=== PATIENT | male | born 1970 | race Hispanic/Latino ===

== ENCOUNTER 2017-11-24 16:45 | Emergency (ER) | payer SELFPAY ==
[2017-11-24 20:09] LABS: Hemoglobin 11.9 gm/dl (11.8-15.2); Mean Corpuscular HGB Conc 34 % (32-34); Mean Corpuscular Hemoglobin 38 pg (28-32); Mean Corpuscular Volume 111 fl (84-94); Platelet Count 153 K/mm3 (140-440); Red Blood Count 3.17 M/mm3 (3.65-5.03)
[2017-11-24 20:15] LABS: BUN/Creatinine Ratio 9; Blood Urea Nitrogen 6 mg/dL (9-20); Calcium 8.4 mg/dL (8.4-10.2); Hemolysis Index 9
[2017-11-25] MEDS ORDERED: ANTIVERT PO ONE (11:19)
[2017-11-25] MEDS ORDERED: MOTRIN PO ONE (11:19)
[2017-11-25] MEDS ORDERED: NACL 0.9% 1000 ML 1,000 ML IV ONE (11:45)
--- NOTE | 2017-11-25 13:00 | Emergency Department Report ---
ED Dizziness HPI - General Chief Complaint: Dizziness Stated Complaint: FALL/DIZZINESS Time Seen by Provider: 11/25/17 11:05 Source: patient Mode of arrival: Ambulatory Limitations: No Limitations - History of Present Illness Initial Comments: Patient is a 47-year-old male who is presenting with dizziness for approximately 1 week. Patient states that he was recently diagnosed with hypertension and placed onto a blood pressure medicine since then he has been feeling dizzy spinning. Patient states that he stop taking one of the blood pressure medicines but the dizziness has persisted. Patient does have a difficult time walking and fell 2 days ago. Patient has a mild headache as 3 out of 10 in severity with neck discomfort. Patient denies syncope fever chills nausea vomiting diarrhea chest pain at this time. Patient moving all extremities is states he has a spinning sensation or whether she is sitting or standing Patient states he was seen at [facility] several days ago and had "an MRI" unable to determine what was done because the patient is not the best historian. Description: "room spinning", lightheadedness, off-balance, difficulty walking Severity: moderate Improves With: nothing Worsens With: nothing - Related Data Home Medications Medication Instructions Recorded Confirmed Last Taken ALPRAZolam [Xanax TAB] 0.5 mg PO BID PRN 09/23/16 09/23/16 Unknown Acetaminophen 650 mg PO Q6H PRN 09/23/16 09/23/16 Unknown Levothyroxine [Synthroid] 75 mcg PO QAM 09/23/16 09/23/16 Unknown PARoxetine [Paxil] 20 mg PO DAILY 09/23/16 09/23/16 Unknown amLODIPine [Norvasc] 10 mg PO DAILY 09/23/16 09/23/16 Unknown cloNIDine [Catapres] 0.2 mg PO BID 09/23/16 09/23/16 Unknown Previous Rx's Medication Instructions Recorded Last Taken Type Amoxicillin/K Clav Tab [Augmentin 1 tab PO Q12H #5 tablet 09/24/16 Unknown Rx 875MG TAB] Folic Acid 1 tab PO QDAY #30 tab 09/25/16 Unknown Rx Ibuprofen [Motrin] 800 mg PO Q8HR PRN #20 tablet 09/27/16 Unknown Rx Ibuprofen [Motrin] 600 mg PO Q8H PRN #20 tablet 11/25/17 Unknown Rx Meclizine [Antivert] 25 mg PO TID PRN #12 tablet 11/25/17 Unknown Rx Allergies Allergy/AdvReac Type Severity Reaction Status Date / Time No Known Allergies Allergy Verified 09/23/16 02:31 ED Review of Systems ROS: Stated complaint: FALL/DIZZINESS Other details as noted in HPI Comment: All other systems reviewed and negative ED Past Medical Hx - Past Medical History Hx Hypertension: Yes Hx Heart Attack/AMI: No Hx Congestive Heart Failure: No Hx Diabetes: No Hx Deep Vein Thrombosis: No Hx Pulmonary Embolism: No Hx Liver Disease: Yes Hx Asthma: No Hx COPD: No Hx Tuberculosis: No Hx HIV: No Additional medical history: THYROID. PNEUMONIA ,abscessed lung 10/2016//FX left ankle 11/2017 - Surgical History Hx Coronary Stent: No Hx Pacemaker: No Hx Internal Defibrillator: No Additional Surgical History: CYST REMOVED LEFT ARM. CHEST TUBE LEFT CHEST X 3 DAYS PT STATES - Social History Smoking Status: Current Every Day Smoker Substance Use Type: Alcohol - Medications Home Medications: Home Medications Medication Instructions Recorded Confirmed Last Taken Type ALPRAZolam [Xanax TAB] 0.5 mg PO BID PRN 09/23/16 09/23/16 Unknown History Acetaminophen 650 mg PO Q6H PRN 09/23/16 09/23/16 Unknown History Levothyroxine [Synthroid] 75 mcg PO QAM 09/23/16 09/23/16 Unknown History PARoxetine [Paxil] 20 mg PO DAILY 09/23/16 09/23/16 Unknown History amLODIPine [Norvasc] 10 mg PO DAILY 09/23/16 09/23/16 Unknown History cloNIDine [Catapres] 0.2 mg PO BID 09/23/16 09/23/16 Unknown History Amoxicillin/K Clav Tab [Augmentin 1 tab PO Q12H #5 tablet 09/24/16 Unknown Rx 875MG TAB] Folic Acid 1 tab PO QDAY #30 tab 09/25/16 Unknown Rx Ibuprofen [Motrin] 800 mg PO Q8HR PRN #20 tablet 09/27/16 Unknown Rx Ibuprofen [Motrin] 600 mg PO Q8H PRN #20 tablet 11/25/17 Unknown Rx Meclizine [Antivert] 25 mg PO TID PRN #12 tablet 11/25/17 Unknown Rx ED Physical Exam - General Limitations: No Limitations General appearance: alert, in no apparent distress - Head Head exam: Present: atraumatic, normocephalic - Eye Eye exam: Present: normal appearance - ENT ENT exam: Present: mucous membranes moist - Neck Neck exam: Present: other (generalized C-spine tenderness) - Respiratory Respiratory exam: Present: normal lung sounds bilaterally. Absent: respiratory distress - Cardiovascular Cardiovascular Exam: Present: regular rate, normal rhythm. Absent: systolic murmur, diastolic murmur, rubs, gallop - GI/Abdominal GI/Abdominal exam: Present: soft, normal bowel sounds - Rectal Rectal exam: Present: deferred - Extremities Exam Extremities exam: Present: normal inspection - Back Exam Back exam: Present: normal inspection - Neurological Exam Neurological exam: Present: alert, oriented X3 - Psychiatric Psychiatric exam: Present: normal affect, normal mood - Skin Skin exam: Present: warm, dry, intact, normal color. Absent: rash ED Course Vital Signs 11/24/17 11/24/17 11/25/17 17:08 21:52 08:41 Temperature 99.2 F 98.6 F 97.4 F L Pulse Rate 89 79 79 Respiratory 18 18 18 Rate Blood Pressure 110/82 139/89 147/91 Blood Pressure [Right] O2 Sat by Pulse 98 97 100 Oximetry 11/25/17 11:45 Temperature Pulse Rate 88 Respiratory Rate Blood Pressure Blood Pressure 82/41 [Right] O2 Sat by Pulse Oximetry ED Medical Decision Making - Lab Data Result diagrams: 11/24/17 18:50 11/24/17 18:50 - EKG Data -: EKG Interpreted by Me EKG shows normal: sinus rhythm, axis, QRS complexes, ST-T waves Rate: normal - EKG Data Interpretation: other (EKG has a rate of 84 only abnormality is intervals there' s a prolonged QT time interpretations 1720) - Medical Decision Making Patient is a 47-year-old male presenting with dizziness. Patient states he had a MRI several days ago but this was done at another facility is unable to get in touch with their facility at this time to find out if the patient indeed did have MRI and of what. Patient's paperwork from the hospital states that he has small ankle fracture. Patient is not the best historian. Because of the patient's fall and neck injury and dizziness my plan was to do a CT of the head and C-spine. Looking for potential C-spine fracture or evidence of CVA. Patient is refused this exam at this time discussed that the patient may have had a stroke could also have C-spine fractures that he'll follow-up as an outpatient is not want this exam patient states he does feel better after Antivert patient will be discharged AGAINST MEDICAL ADVICE at this time Critical care attestation.: If time is entered above; I have spent that time in minutes in the direct care of this critically ill patient, excluding procedure time. ED Disposition Clinical Impression: Dizziness, Cervical pain (neck), Closed head injury Disposition: - TO HOME OR SELFCARE Is pt being admited?: No Does the pt Need Aspirin: No Condition: Undetermined Prescriptions: Ibuprofen [Motrin] 600 mg PO Q8H PRN #20 tablet PRN Reason: Pain Meclizine [Antivert] 25 mg PO TID PRN #12 tablet PRN Reason: Vertigo Referrals: EMANUEL MCDONALD MD [Primary Care Provider] - 3-5 Days
[2017-11-25 15:27] VITALS: BP 167/100
[2017-11-25 16:10] LABS: BUN/Creatinine Ratio 9; Blood Urea Nitrogen 6 mg/dL (9-20); Calcium 8.6 mg/dL (8.4-10.2); Hemolysis Index 45
--- NOTE | 2017-11-25 16:15 | Cat Scan Report ---
FINAL REPORT PROCEDURE: CT HEAD/BRAIN WO CON TECHNIQUE: Computerized tomography of the head was performed without contrast material. DLP 1075.62 mGy-cm. HISTORY: Dizziness. COMPARISON: CT scan of the brain dated 09/23/2016. FINDINGS: Skull and scalp: Normal. Paranasal sinuses: Rightward septal deviation. Scattered ethmoid and left sphenoid sinusitis. Ventricles and subarachnoid spaces: Normal. Cerebrum: No evidence of hemorrhage, acute infarction or mass . Cerebellum and brainstem: No evidence of hemorrhage, acute infarction or mass. Prominent cisterna magna un changed. Vasculature: Mild atherosclerosis. Comments: None. IMPRESSION: No new CT evidence of acute intracranial pathology. Consider MRI of the brain for further characterization if there is continued clinical concern and if patient has no contraindication to MRI. Sinusitis.
== END 2017-11-25 13:09 | disposition left against medical advice (07) ==
LOC: ED 16:45
DX: S09.90XA Unspecified injury of head, initial encounter (principal); R42 Dizziness and giddiness; M54.2 Cervicalgia; I10 Essential (primary) hypertension; F17.200 Nicotine dependence, unspecified, uncomplicated
CPT/HCPCS: 36415; 70450; 80048; 84484; 85027; 93005; 93010; 99284

== ENCOUNTER 2017-11-25 15:08 | Emergency (ER) | payer SELFPAY ==
[2017-11-26] MEDS ORDERED: TYLENOL PO ONE (00:30)
[2017-11-26] MEDS ORDERED: TYLENOL ONE (00:37)
--- NOTE | 2017-11-26 01:27 | Emergency Department Report ---
<CHARI OVALLE T - Last Filed: 11/26/17 01:55> ED Psych HPI - General Chief Complaint: Weakness Stated Complaint: WEAK/DIZZY Time Seen by Provider: 11/26/17 01:05 Source: patient Mode of arrival: Ambulatory - History of Present Illness Initial Comments: 47 yo male who comes in today due to suicidal ideation. He states that he was seen and evaluated here earlier and was discharged. He presents to the ED complaining of suicidal ideation. He states that he has been contemplating suicide times the last three months. When asked how and why, he states that he would attempt it by cutting his wrist. In regards to why, he states that he has been depressed for the last three months, as he has lost everything he has and doesn't have anything. Also admits to a history of etoh abuse, and states that he can't quit drinking. He knows that he needs to quit, however he can't. MD Complaint: suicidal ideation -: month(s) (Three ) Associated Psychiatric Symptoms: suicidal ideation History of same: No Quality: intermittent Improves With: none Worsens With: achohol Context: recent alcohol abuse, other (history of etoh abuse ) Associated Symptoms: confusion Treatments Prior to Arrival: none If Self Harm: admits thoughts of, has plan (cut his wrist ) - Related Data Home Medications Medication Instructions Recorded Confirmed Last Taken ALPRAZolam [Xanax TAB] 0.5 mg PO BID PRN 09/23/16 09/23/16 Unknown Acetaminophen 650 mg PO Q6H PRN 09/23/16 09/23/16 Unknown Levothyroxine [Synthroid] 75 mcg PO QAM 09/23/16 09/23/16 Unknown PARoxetine [Paxil] 20 mg PO DAILY 09/23/16 09/23/16 Unknown amLODIPine [Norvasc] 10 mg PO DAILY 09/23/16 09/23/16 Unknown cloNIDine [Catapres] 0.2 mg PO BID 09/23/16 09/23/16 Unknown Previous Rx's Medication Instructions Recorded Last Taken Type Amoxicillin/K Clav Tab [Augmentin 1 tab PO Q12H #5 tablet 09/24/16 Unknown Rx 875MG TAB] Folic Acid 1 tab PO QDAY #30 tab 09/25/16 Unknown Rx Ibuprofen [Motrin] 800 mg PO Q8HR PRN #20 tablet 09/27/16 Unknown Rx Ibuprofen [Motrin] 600 mg PO Q8H PRN #20 tablet 11/25/17 Unknown Rx Meclizine [Antivert] 25 mg PO TID PRN #12 tablet 11/25/17 Unknown Rx Allergies Allergy/AdvReac Type Severity Reaction Status Date / Time No Known Allergies Allergy Verified 09/23/16 02:31 ED Review of Systems ROS: Stated complaint: WEAK/DIZZY Other details as noted in HPI Constitutional: weakness Eyes: denies: eye pain, eye discharge, vision change ENT: denies: ear pain, throat pain Respiratory: denies: cough, shortness of breath, wheezing Cardiovascular: denies: chest pain, palpitations Endocrine: no symptoms reported Gastrointestinal: denies: abdominal pain, nausea, diarrhea Genitourinary: denies: urgency, dysuria Musculoskeletal: joint swelling (left ankle ), arthralgia Skin: denies: rash, lesions Neurological: denies: headache, weakness, paresthesias Psychiatric: as per HPI, suicidal thoughts Hematological/Lymphatic: denies: easy bleeding, easy bruising ED Past Medical Hx - Past Medical History Hx Hypertension: Yes Hx Heart Attack/AMI: No Hx Congestive Heart Failure: No Hx Diabetes: No Hx Deep Vein Thrombosis: No Hx Pulmonary Embolism: No Hx Liver Disease: Yes Hx Asthma: No Hx COPD: No Hx Tuberculosis: No Hx HIV: No Additional medical history: THYROID. PNEUMONIA ,abscessed lung 10/2016//FX left ankle 11/2017 - Surgical History Hx Coronary Stent: No Hx Pacemaker: No Hx Internal Defibrillator: No Additional Surgical History: CYST REMOVED LEFT ARM. CHEST TUBE LEFT CHEST X 3 DAYS PT STATES - Social History Smoking Status: Current Every Day Smoker Substance Use Type: Alcohol - Medications Home Medications: Home Medications Medication Instructions Recorded Confirmed Last Taken Type ALPRAZolam [Xanax TAB] 0.5 mg PO BID PRN 09/23/16 09/23/16 Unknown History Acetaminophen 650 mg PO Q6H PRN 09/23/16 09/23/16 Unknown History Levothyroxine [Synthroid] 75 mcg PO QAM 09/23/16 09/23/16 Unknown History PARoxetine [Paxil] 20 mg PO DAILY 09/23/16 09/23/16 Unknown History amLODIPine [Norvasc] 10 mg PO DAILY 09/23/16 09/23/16 Unknown History cloNIDine [Catapres] 0.2 mg PO BID 09/23/16 09/23/16 Unknown History Amoxicillin/K Clav Tab [Augmentin 1 tab PO Q12H #5 tablet 09/24/16 Unknown Rx 875MG TAB] Folic Acid 1 tab PO QDAY #30 tab 09/25/16 Unknown Rx Ibuprofen [Motrin] 800 mg PO Q8HR PRN #20 tablet 09/27/16 Unknown Rx Ibuprofen [Motrin] 600 mg PO Q8H PRN #20 tablet 11/25/17 Unknown Rx Meclizine [Antivert] 25 mg PO TID PRN #12 tablet 11/25/17 Unknown Rx ED Physical Exam - General Limitations: No Limitations General appearance: anxious - Head Head exam: Present: atraumatic, normocephalic - Eye Eye exam: Present: normal appearance - ENT ENT exam: Present: mucous membranes moist - Neck Neck exam: Present: normal inspection - Respiratory Respiratory exam: Present: normal lung sounds bilaterally. Absent: respiratory distress - Cardiovascular Cardiovascular Exam: Present: regular rate, normal rhythm. Absent: systolic murmur, diastolic murmur, rubs, gallop - Extremities Exam Extremities exam: Present: normal inspection - Back Exam Back exam: Present: normal inspection - Neurological Exam Neurological exam: Present: alert, oriented X3 - Psychiatric Psychiatric exam: Present: suicidal ideation - Skin Skin exam: Present: warm, dry, intact, normal color. Absent: rash ED Course Vital Signs 11/25/17 11/26/17 11/26/17 15:18 01:38 02:15 Temperature 98.6 F 97.7 F Pulse Rate 85 85 Respiratory 16 16 Rate Blood Pressure 167/100 163/90 Blood Pressure 171/105 [Left] O2 Sat by Pulse 100 98 Oximetry 11/26/17 11/26/17 11/26/17 02:25 02:29 02:30 Temperature Pulse Rate 64 64 Respiratory Rate Blood Pressure 163/90 150/85 Blood Pressure 163/90 [Left] O2 Sat by Pulse Oximetry 11/26/17 02:45 Temperature Pulse Rate Respiratory Rate Blood Pressure 150/88 Blood Pressure [Left] O2 Sat by Pulse Oximetry - Reevaluation(s) Reevaluation #1: 11/26/17 01:30 Patient was seen and evaluated here earlier on today. Admits to suicidal ideation. History of alcohol abuse. Will consult mental health. Reevaluation #2: 11/26/17 01:[address] Guzman about the patient. Dr. Guzman to assume care of the patient. ED Medical Decision Making - Medical Decision Making Etoh abuse Suicidal ideation History of falls - Differential Diagnosis Etoh abuse, suicidal ideation, history of falls Critical care attestation.: If time is entered above; I have spent that time in minutes in the direct care of this critically ill patient, excluding procedure time. ED Disposition Clinical Impression: Suicidal ideation, Alcohol abuse Disposition: [id number]/TX-[id number] PS[facility] HOSP/PSY UNIT Condition: Stable Referrals: EMANUEL MCDONALD MD [Primary Care Provider] - 3-5 Days <LOGAN GUZMAN III - Last Filed: 11/26/17 05:12> ED Medical Decision Making - Lab Data Result diagrams: 11/26/17 01:39 11/26/17 01:39 - Medical Decision Making Patient medically cleared. Patient stable for transfer to psychiatric facility for 1013 ED Disposition Is pt being admited?: No Does the pt Need Aspirin: No Time of Disposition: 05:12
[2017-11-26] MEDS ORDERED: APRESOLINE IV ONE (01:53)
[2017-11-26 02:03] LABS: Hematocrit 35.5 % (35.5-45.6); Hemoglobin 12.2 gm/dl (11.8-15.2); Mean Corpuscular HGB Conc 34 % (32-34); Mean Corpuscular Hemoglobin 38 pg (28-32); Mean Corpuscular Volume 110 fl (84-94); Platelet Count 121 K/mm3 (140-440); Red Blood Count 3.24 M/mm3 (3.65-5.03); Red Cell Distribution Width 16.4 % (13.2-15.2)
[2017-11-26 02:16] LABS: Alanine Aminotransferase 24 units/L (7-56); Albumin 3.9 g/dL (3.9-5); BUN/Creatinine Ratio 12; Blood Urea Nitrogen 7 mg/dL (9-20); Calcium 8.6 mg/dL (8.4-10.2); Hemolysis Index 10
[2017-11-26 02:20] LABS: Creatine Kinase MB 6.6 ng/mL (0.0-4.0)
--- NOTE | 2017-11-26 02:22 | XRay Report ---
FINAL REPORT PROCEDURE: XR ANKLE 2V LT TECHNIQUE: LEFT ankle radiographs, AP and lateral views. HISTORY: LEFT ANKLE PAIN POST fall COMPARISON: No prior studies are available for comparison. FINDINGS: Fracture (s) and/or Dislocation(s): There is an oblique lucency through the distal fibula. This is consistent with a subacute fracture of the distal fibula. Callus formation in this region is noted. The remaining osseous structures appear intact. Alignment: Normal. Joint space(s): Mild narrowing of the joint spaces Soft tissues: Diffuse soft tissue swelling Bone mineralization: Normal. Foreign bodies: Normal. Calcaneal spurring: Small inferior spur IMPRESSION: Subacute healing fracture of the distal fibula. There is associated soft tissue swelling. Mild arthritis..
--- NOTE | 2017-11-26 02:23 | XRay Report ---
FINAL REPORT PROCEDURE: XR CHEST 1V AP TECHNIQUE: Chest radiograph anteroposterior view. CPT 81270 HISTORY: chest pain COMPARISON: No prior studies are available for comparison. FINDINGS: Heart: Normal. Mediastinum/Vessels: Normal. Lungs/Pleural space: Mild atelectasis in the left lower lung. No effusion or pneumothorax. Bony thorax: No acute osseous abnormality. Life support devices: None. IMPRESSION: Mild atelectasis left lower lung.
[2017-11-26] MEDS ORDERED: ATIVAN IV ONE (02:40)
[2017-11-26 02:43] LABS: Bilirubin,Urine NEG (Negative); Blood,Urine LG (Negative); Color,Urine Yellow (Yellow); Nitrite,Urine NEG (Negative)
[2017-11-26 02:50] LABS: Amphetamine Screen,Urine PRESUMPTIVE NEGATIVE; Benzodiazepines Screen,Urine PRESUMPTIVE NEGATIVE; Cannabinoid Screen,Urine PRESUMPTIVE NEGATIVE; Cocaine Screen,Urine PRESUMPTIVE NEGATIVE; Methadone Screen,Urine PRESUMPTIVE NEGATIVE; Opiate Screen,Urine PRESUMPTIVE NEGATIVE
[2017-11-26] MEDS ORDERED: ATIVAN IV PRN ×2 (04:15)
--- NOTE | 2017-11-26 14:38 | Consultation ---
History of Present Illness - Reason for Consult Consult date: 11/26/17 Reason for consult: Mental Health Evaluation Requesting physician: CHARI OVALLE - Chief Complaint Chief complaint: "I have no idea about my life" - History of Present Psychiatric Illness 47 y.o. white male presenting to [facility] for SI's and ETOH abuse. Today the patient is calm and cooperative during the assessment. He stated that he has no relationship with his siblings. He stated that he only talks with his mother occasionally. He stated that he been drinking alcohol (etoh) for the past 20 plus years. He stated that he drink now to lower his depression about his life. He stated that his life is "horrible." He stated that he do not want to live and would cut his wrists if he had the chance. He denies a previous suicide attempt when asked. He stated feeling sad and hopeless the past couple months because of his family issues. He stated that he would like some help (rehab services for his alcoholism) once discharged. He denies HI's and AVH's. He admitted to a poor appetite and erratic sleep. He denies recreational drug use. Medications and Allergies Allergies Allergy/AdvReac Type Severity Reaction Status Date / Time No Known Allergies Allergy Verified 09/23/16 02:31 Home Medications Medication Instructions Recorded Confirmed Last Taken Type ALPRAZolam [Xanax TAB] 0.5 mg PO BID PRN 09/23/16 09/23/16 Unknown History Acetaminophen 650 mg PO Q6H PRN 09/23/16 09/23/16 Unknown History Levothyroxine [Synthroid] 75 mcg PO QAM 09/23/16 09/23/16 Unknown History PARoxetine [Paxil] 20 mg PO DAILY 09/23/16 09/23/16 Unknown History amLODIPine [Norvasc] 10 mg PO DAILY 09/23/16 09/23/16 Unknown History cloNIDine [Catapres] 0.2 mg PO BID 09/23/16 09/23/16 Unknown History Amoxicillin/K Clav Tab [Augmentin 1 tab PO Q12H #5 tablet 09/24/16 Unknown Rx 875MG TAB] Folic Acid 1 tab PO QDAY #30 tab 09/25/16 Unknown Rx Ibuprofen [Motrin] 800 mg PO Q8HR PRN #20 tablet 09/27/16 Unknown Rx Ibuprofen [Motrin] 600 mg PO Q8H PRN #20 tablet 11/25/17 Unknown Rx Meclizine [Antivert] 25 mg PO TID PRN #12 tablet 11/25/17 Unknown Rx Active Meds: Active Medications Lorazepam (Ativan) 2 mg IV Q1HR PRN PRN Reason: CIWA-Ar 8-15 Lorazepam (Ativan) 4 mg IV Q1HR PRN PRN Reason: CIWA-Ar 16-25 Mental Status Exam - Vital signs Last Vital Signs Temp 97.7 F 11/26/17 01:38 Pulse 64 11/26/17 02:29 Resp 16 11/26/17 01:38 BP 147/80 11/26/17 09:00 Pulse Ox 98 11/26/17 09:00 - Exam Narrative exam: MSE: Appearance: calm, cooperative Behavior: regular eye contact Speech: regular rate and tone Mood: "depressed" withdrawn Affect: congruent to mood Thought Process: circumstantial Thought Content: denies HI's and AVH's Motor Activity: ambulatory Cognition: A/O x 3 Insight: variable Judgment: variable Results Result Diagrams: 11/26/17 01:39 11/26/17 01:39 Abnormal lab results 11/26/17 11/26/17 11/26/17 Range/Units 01:39 01:39 01:39 RBC 3.24 L (3.65-5.03) M/mm3 MCV 110 H (84-94) fl MCH 38 H (28-32) pg RDW 16.4 H (13.2-15.2) % Plt Count 121 L (140-440) K/mm3 BUN 7 L (9-20) mg/dL Creatinine 0.6 L (0.8-1.5) mg/dL AST 61 H (5-40) units/L Total Creatine Kinase 230 H (55-170) units/L CK-MB (CK-2) 6.6 H (0.0-4.0) ng/mL All other labs normal. Assessment and Plan Assessment and plan: Impression: MDD, Severe Type. Alcohol Use DO. Today the patient is calm and cooperative during the assessment. Patient endorses SI's. Mild to Moderate tremors noted (etoh). DDx: R/O Bipolar DO Recommendation/Plan: Continue 1013 with placement to inpatient psy services. Continue CIWA. Start Remeron 15 mg PO HS for depression/sleep consolidation. Remeron may stimulate patient's appetite. Discussed possible suicidality/ medication induced warren reference Remeron. Discussed the importance to abstain from alcohol consumption (etoh).
[2017-11-26 17:27] VITALS: BP 135/75
[2017-11-26] MEDS ORDERED: REMERON PO SCH (22:00)
== END 2017-11-26 21:30 ==
LOC: ED 15:08
DX: R45.851 Suicidal ideations (principal); F17.200 Nicotine dependence, unspecified, uncomplicated; I10 Essential (primary) hypertension
CPT/HCPCS: 36415; 71045; 73600; 80053; 80307; 81001; 82550; 82553; 84484; 85027; 96374; 96376; 99285; G0480; J0360; J2060; 80320

== ENCOUNTER 2019-06-19 14:35 | Inpatient (IN) | payer OTHER ==
--- NOTE | 2019-06-19 15:29 | Emergency Department Report ---
ED Shortness of Breath HPI - General Chief Complaint: Dizziness Stated Complaint: VERTIGO Time Seen by Provider: 06/19/19 15:20 Source: patient, EMS Mode of arrival: Ambulatory Limitations: No Limitations - History of Present Illness MD Complaint: shortness of breath, chest pain -: Sudden Time: 12:00 Severity: moderate Pain Scale: 5 Consistency: now resolved Improves With: oxygen Worsens With: nothing Associated Symptoms: chest pain Treatments Prior to Arrival: oxygen - Related Data Home Oxygen Therapy: No Home Medications Medication Instructions Recorded Confirmed Last Taken ALPRAZolam [Xanax TAB] 0.5 mg PO BID PRN 09/23/16 09/23/16 Unknown Acetaminophen 650 mg PO Q6H PRN 09/23/16 09/23/16 Unknown Levothyroxine [Synthroid] 75 mcg PO QAM 09/23/16 09/23/16 Unknown PARoxetine [Paxil] 20 mg PO DAILY 09/23/16 09/23/16 Unknown amLODIPine [Norvasc] 10 mg PO DAILY 09/23/16 09/23/16 Unknown cloNIDine [Catapres] 0.2 mg PO BID 09/23/16 09/23/16 Unknown Previous Rx's Medication Instructions Recorded Last Taken Type Amoxicillin/K Clav Tab [Augmentin 1 tab PO Q12H #5 tablet 09/24/16 Unknown Rx 875MG TAB] Folic Acid 1 tab PO QDAY #30 tab 09/25/16 Unknown Rx Ibuprofen [Motrin] 800 mg PO Q8HR PRN #20 tablet 09/27/16 Unknown Rx Ibuprofen [Motrin] 600 mg PO Q8H PRN #20 tablet 11/25/17 Unknown Rx Meclizine [Antivert] 25 mg PO TID PRN #12 tablet 11/25/17 Unknown Rx Allergies Allergy/AdvReac Type Severity Reaction Status Date / Time No Known Allergies Allergy Verified 09/23/16 02:31 ED Review of Systems ROS: Stated complaint: VERTIGO Other details as noted in HPI Comment: All other systems reviewed and negative Constitutional: denies: chills, fever Eyes: denies: eye pain, eye discharge, vision change ENT: denies: ear pain, throat pain Respiratory: shortness of breath. denies: cough, wheezing Cardiovascular: chest pain. denies: palpitations Endocrine: no symptoms reported Gastrointestinal: denies: abdominal pain, nausea, diarrhea Genitourinary: denies: urgency, dysuria Musculoskeletal: other (Bilateral Leg swelling.). denies: back pain, joint swelling, arthralgia Skin: denies: rash, lesions Neurological: denies: headache, weakness, paresthesias Psychiatric: depression, suicidal thoughts. denies: anxiety, homicidal thoughts Hematological/Lymphatic: denies: easy bleeding, easy bruising ED Past Medical Hx - Past Medical History Previous Medical History?: Yes Hx Hypertension: Yes Hx Heart Attack/AMI: No Hx Congestive Heart Failure: No Hx Diabetes: No Hx Deep Vein Thrombosis: No Hx Pulmonary Embolism: No Hx Liver Disease: Yes Hx Asthma: No Hx COPD: No Hx Tuberculosis: No Hx HIV: No Additional medical history: THYROID. 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 CHEST TUBE LEFT CHEST X 3 DAYS PT STATES - Social History Smoking Status: Current Some Day Smoker Substance Use Type: Alcohol - Medications Home Medications: Home Medications Medication Instructions Recorded Confirmed Last Taken Type ALPRAZolam [Xanax TAB] 0.5 mg PO BID PRN 09/23/16 09/23/16 Unknown History Acetaminophen 650 mg PO Q6H PRN 09/23/16 09/23/16 Unknown History Levothyroxine [Synthroid] 75 mcg PO QAM 09/23/16 09/23/16 Unknown History PARoxetine [Paxil] 20 mg PO DAILY 09/23/16 09/23/16 Unknown History amLODIPine [Norvasc] 10 mg PO DAILY 09/23/16 09/23/16 Unknown History cloNIDine [Catapres] 0.2 mg PO BID 09/23/16 09/23/16 Unknown History Amoxicillin/K Clav Tab [Augmentin 1 tab PO Q12H #5 tablet 09/24/16 Unknown Rx 875MG TAB] Folic Acid 1 tab PO QDAY #30 tab 09/25/16 Unknown Rx Ibuprofen [Motrin] 800 mg PO Q8HR PRN #20 tablet 09/27/16 Unknown Rx Ibuprofen [Motrin] 600 mg PO Q8H PRN #20 tablet 11/25/17 Unknown Rx Meclizine [Antivert] 25 mg PO TID PRN #12 tablet 11/25/17 Unknown Rx ED Physical Exam - General Limitations: No Limitations General appearance: alert, in no apparent distress, lethargic - Head Head exam: Present: atraumatic, normocephalic - Eye Eye exam: Present: normal appearance, PERRL, EOMI Pupils: Present: normal accommodation - ENT ENT exam: Present: normal exam, mucous membranes moist - Neck Neck exam: Present: normal inspection, full ROM. Absent: tenderness, meningismus - Respiratory Respiratory exam: Present: normal lung sounds bilaterally. Absent: respiratory distress, wheezes, rales - Cardiovascular Cardiovascular Exam: Present: regular rate, normal rhythm. Absent: systolic murmur, diastolic murmur, rubs, gallop - GI/Abdominal GI/Abdominal exam: Present: soft, distended, normal bowel sounds. Absent: tenderness, guarding, rebound - Extremities Exam Extremities exam: Present: normal inspection, normal capillary refill, pedal edema, calf tenderness - Back Exam Back exam: Present: normal inspection, full ROM. Absent: tenderness - Neurological Exam Neurological exam: Present: alert, oriented X3, CN II-XII intact - Psychiatric Psychiatric exam: Present: depressed, flat affect, suicidal ideation. Absent: homicidal ideation - Skin Skin exam: Present: warm, dry, intact, normal color, erythema (RLE). Absent: rash ED Course Vital Signs 06/19/19 06/19/19 06/19/19 14:47 14:56 15:00 Temperature 98.1 F Pulse Rate 81 86 Respiratory 18 Rate Blood Pressure 133/67 133/67 O2 Sat by Pulse 94 91 Oximetry 06/19/19 06/19/19 06/19/19 15:30 16:00 16:30 Temperature Pulse Rate 73 Respiratory Rate Blood Pressure 149/86 140/84 148/77 O2 Sat by Pulse 100 100 100 Oximetry 06/19/19 17:00 Temperature Pulse Rate Respiratory Rate Blood Pressure 136/76 O2 Sat by Pulse 87 Oximetry - Consultations Consultation #1: 06/19/19 20:21 Patient will be admitted to the hospital by Ms. Grier the midlevel provider for the hospitalist Dr Mari Singer. ED Medical Decision Making - Lab Data Result diagrams: 06/19/19 15:50 06/19/19 15:50 Lab Results 06/19/19 06/19/19 06/19/19 Range/Units 15:50 15:50 15:50 WBC 9.0 (4.5-11.0) K/mm3 RBC 3.16 L (3.65-5.03) M/mm3 Hgb 11.2 L (11.8-15.2) gm/dl Hct 32.9 L (35.5-45.6) % MCV 104 H (84-94) fl MCH 35 H (28-32) pg MCHC 34 (32-34) % RDW 17.5 H (13.2-15.2) % Plt Count 386 (140-440) K/mm3 Lymph % (Auto) 18.0 (13.4-35.0) % [place] % (Auto) 7.2 (0.0-7.3) % Eos % (Auto) 0.3 (0.0-4.3) % Baso % (Auto) 0.7 (0.0-1.8) % Lymph # 1.6 (1.2-5.4) K/mm3 [place] # 0.7 (0.0-0.8) K/mm3 Eos # 0.0 (0.0-0.4) K/mm3 Baso # 0.1 (0.0-0.1) K/mm3 Seg Neutrophils % 73.8 H (40.0-70.0) % Seg Neutrophils # 6.7 (1.8-7.7) K/mm3 PT 14.2 (12.2-14.9) Sec. INR 1.13 (0.87-1.13) Sodium 135 L (137-145) mmol/L Potassium 4.1 (3.6-5.0) mmol/L Chloride 95.1 L (98-107) mmol/L Carbon Dioxide 25 (22-30) mmol/L Anion Gap 19 mmol/L BUN 15 (9-20) mg/dL Creatinine 1.3 (0.8-1.5) mg/dL Estimated GFR 58 ml/min BUN/Creatinine Ratio 12 % Glucose 109 H (75-100) mg/dL Calcium 9.1 (8.4-10.2) mg/dL Total Bilirubin 0.50 (0.1-1.2) mg/dL AST 27 (5-40) units/L ALT 22 (7-56) units/L Alkaline Phosphatase 116 (35-129) units/L Total Creatine Kinase (55-170) units/L Troponin T (0.00-0.029) ng/mL NT-Pro-B Natriuret Pep 342.2 (0-900) pg/mL Total Protein 9.0 H (6.3-8.2) g/dL Albumin 3.5 L (3.9-5) g/dL Albumin/Globulin Ratio 0.6 % Triglycerides (2-149) mg/dL Cholesterol (50-199) mg/dL LDL Cholesterol Direct (50-130) mg/dL HDL Cholesterol (40-59) mg/dL Cholesterol/HDL Ratio % TSH (0.270-4.200) mlU/mL Salicylates (2.8-20.0) mg/dL Acetaminophen (10.0-30.0) ug/mL Plasma/Serum Alcohol (0-0.07) % 06/19/19 06/19/19 06/19/19 Range/Units 15:50 15:50 15:50 WBC (4.5-11.0) K/mm3 RBC (3.65-5.03) M/mm3 Hgb (11.8-15.2) gm/dl Hct (35.5-45.6) % MCV (84-94) fl MCH (28-32) pg MCHC (32-34) % RDW (13.2-15.2) % Plt Count (140-440) K/mm3 Lymph % (Auto) (13.4-35.0) % [place] % (Auto) (0.0-7.3) % Eos % (Auto) (0.0-4.3) % Baso % (Auto) (0.0-1.8) % Lymph # (1.2-5.4) K/mm3 [place] # (0.0-0.8) K/mm3 Eos # (0.0-0.4) K/mm3 Baso # (0.0-0.1) K/mm3 Seg Neutrophils % (40.0-70.0) % Seg Neutrophils # (1.8-7.7) K/mm3 PT (12.2-14.9) Sec. INR (0.87-1.13) Sodium (137-145) mmol/L Potassium (3.6-5.0) mmol/L Chloride (98-107) mmol/L Carbon Dioxide (22-30) mmol/L Anion Gap mmol/L BUN (9-20) mg/dL Creatinine (0.8-1.5) mg/dL Estimated GFR ml/min BUN/Creatinine Ratio % Glucose (75-100) mg/dL Calcium (8.4-10.2) mg/dL Total Bilirubin (0.1-1.2) mg/dL AST (5-40) units/L ALT (7-56) units/L Alkaline Phosphatase (35-129) units/L Total Creatine Kinase 175 H (55-170) units/L Troponin T 0.065 H (0.00-0.029) ng/mL NT-Pro-B Natriuret Pep (0-900) pg/mL Total Protein (6.3-8.2) g/dL Albumin (3.9-5) g/dL Albumin/Globulin Ratio % Triglycerides 119 (2-149) mg/dL Cholesterol 118 (50-199) mg/dL LDL Cholesterol Direct 85 (50-130) mg/dL HDL Cholesterol 28 L (40-59) mg/dL Cholesterol/HDL Ratio 4.21 % TSH 13.750 H (0.270-4.200) mlU/mL Salicylates (2.8-20.0) mg/dL Acetaminophen (10.0-30.0) ug/mL Plasma/Serum Alcohol < 0.01 (0-0.07) % 06/19/19 06/19/19 Range/Units 15:50 15:50 WBC (4.5-11.0) K/mm3 RBC (3.65-5.03) M/mm3 Hgb (11.8-15.2) gm/dl Hct (35.5-45.6) % MCV (84-94) fl MCH (28-32) pg MCHC (32-34) % RDW (13.2-15.2) % Plt Count (140-440) K/mm3 Lymph % (Auto) (13.4-35.0) % [place] % (Auto) (0.0-7.3) % Eos % (Auto) (0.0-4.3) % Baso % (Auto) (0.0-1.8) % Lymph # (1.2-5.4) K/mm3 [place] # (0.0-0.8) K/mm3 Eos # (0.0-0.4) K/mm3 Baso # (0.0-0.1) K/mm3 Seg Neutrophils % (40.0-70.0) % Seg Neutrophils # (1.8-7.7) K/mm3 PT (12.2-14.9) Sec. INR (0.87-1.13) Sodium (137-145) mmol/L Potassium (3.6-5.0) mmol/L Chloride (98-107) mmol/L Carbon Dioxide (22-30) mmol/L Anion Gap mmol/L BUN (9-20) mg/dL Creatinine (0.8-1.5) mg/dL Estimated GFR ml/min BUN/Creatinine Ratio % Glucose (75-100) mg/dL Calcium (8.4-10.2) mg/dL Total Bilirubin (0.1-1.2) mg/dL AST (5-40) units/L ALT (7-56) units/L Alkaline Phosphatase (35-129) units/L Total Creatine Kinase (55-170) units/L Troponin T (0.00-0.029) ng/mL NT-Pro-B Natriuret Pep (0-900) pg/mL Total Protein (6.3-8.2) g/dL Albumin (3.9-5) g/dL Albumin/Globulin Ratio % Triglycerides (2-149) mg/dL Cholesterol (50-199) mg/dL LDL Cholesterol Direct (50-130) mg/dL HDL Cholesterol (40-59) mg/dL Cholesterol/HDL Ratio % TSH (0.270-4.200) mlU/mL Salicylates < 0.3 L (2.8-20.0) mg/dL Acetaminophen < 5.0 L (10.0-30.0) ug/mL Plasma/Serum Alcohol (0-0.07) % - EKG Data -: EKG Interpreted by Me EKG shows normal: sinus rhythm Rate: normal - EKG Data When compared to previous EKG there are: previous EKG unavailable Interpretation: nonspecific ST-T wave pia 06/19/19 15:33 No STEMI. - Radiology Data Radiology results: report reviewed CXR showed basal atelectasis. Doppler Ultrasound of bilateral lower extremity was negative to DVT. CT angio chest with contrast was negative for PE. - Medical Decision Making Elevated Troponin. Patient will be admitted to the hospitalist team for further evaluation and management. Critical care attestation.: If time is entered above; I have spent that time in minutes in the direct care of this critically ill patient, excluding procedure time. ED Disposition Clinical Impression: Elevated troponin level, Pedal edema, Suicide ideation, Prolonged QT interval Chest pain Qualifiers: Chest pain type: unspecified Qualified Code(s): R07.9 - Chest pain, unspecified Disposition: 09 OP ADMIT IP TO THIS HOSP Is pt being admited?: Yes Does the pt Need Aspirin: Yes Condition: Stable Instructions: Chest Pain (ED) Referrals: MINERVA VAUGHN MD [Primary Care Provider] - 3-5 Days Time of Disposition: 20:28
--- NOTE | 2019-06-19 16:05 | XRay Report ---
CHEST 1 VIEW INDICATION: MAIN: SOB AND DIZZYNESS TODAY. COMPARISON: 11/26/2017. FINDINGS: Support devices: None. Heart: Normal. Lungs/Pleura: Mild bibasilar opacities may be atelectatic. Trace effusions versus scarring at the cos tophrenic angles. No pneumothorax. IMPRESSION: 1. Mild presumed atelectatic changes in the bases. Signer Name: Dimitris Markham MD Signed: 06/19/2019 4:00 PM Workstation Name: [id number]
[2019-06-19 16:07] LABS: Basophils # (Auto) 0.1 K/mm3 (0.0-0.1); Basophils % (Auto) 0.7 % (0.0-1.8); Eosinophils % (Auto) 0.3 % (0.0-4.3); Hematocrit 32.9 % (35.5-45.6); Hemoglobin 11.2 gm/dl (11.8-15.2); Lymphocytes # (Auto) 1.6 K/mm3 (1.2-5.4); Mean Corpuscular HGB Conc 34 % (32-34); Mean Corpuscular Volume 104 fl (84-94); Monocytes # (Auto) 0.7 K/mm3 (0.0-0.8); Monocytes % (Auto) 7.2 % (0.0-7.3); Platelet Count 386 K/mm3 (140-440); Red Blood Count 3.16 M/mm3 (3.65-5.03); Red Cell Distribution Width 17.5 % (13.2-15.2)
[2019-06-19 16:33] LABS: Albumin 3.5 g/dL (3.9-5); Calcium 9.1 mg/dL (8.4-10.2)
[2019-06-19 16:42] LABS: INR 1.13 (0.87-1.13)
[2019-06-19] MEDS ORDERED: BABY ASPIRIN PO ONE (16:50)
[2019-06-19 16:57] LABS: Chol/HDL Ratio 4.21 %
--- NOTE | 2019-06-19 17:49 | Vascular Lab Report ---
DUPLEX DOPPLER LOWER EXTREMITY VEINS, BILATERAL INDICATION: Bilateral leg swelling.. TECHNIQUE: Duplex doppler imaging was performed through the veins of both lower extremities using venous naresh nicole and other maneuvers. COMPARISON: None available. FINDINGS: Right Common Femoral vein: Negative. Right Superficial Femoral vein: Negative. Right Popliteal vein: Negative. Right Calf veins: Negative. Left Common Femoral vein: Negative. Left Superficial Femoral vein: Negative. Left Popliteal vein: Negative. Left Calf veins: Negative. Additional findings: None. IMPRESSION: 1. No sonographic evidence for DVT in either lower extremity. Signer Name: Dimitris Markham MD Signed: 06/19/2019 5:45 PM Workstation Name: [id number]
[2019-06-19 17:51] LABS: Partial Thromboplastin Time 27.3 Sec. (24.2-36.6)
--- NOTE | 2019-06-19 17:55 | Cat Scan Report ---
CT BRAIN: 06/19/2019 INDICATION / CLINICAL INFORMATION: Headache. COMPARISON: 11/25/2017 FINDINGS: BRAIN/INTRACRANIAL STRUCTURES: Unenhanced CT images of the brain demonstrate no evidence of acute int racranial abnormality. Ventricles and sulci are slightly prominent in size for a patient of this age, consistent with some d iffuse cerebral atrophy. There is no evidence of acute ischemic injury, hemorrhage, or mass. There are no abnormal extra-axial fluid collections. There has been no change when compared to the prior exam. EXTRACRANIAL STRUCTURES: Unremarkable. IMPRESSION: No acute abnormality. All CT scans at this location are performed using dose reduction to ALARA by means of automated expos ure control. Signer Name: Gabo Scott MD Signed: 06/19/2019 5:51 PM Workstation Name: [id number]
[2019-06-19 18:24] LABS: Bacteria,Urine 1+ /HPF (Negative); Bilirubin,Urine NEG (Negative); Blood,Urine LG (Negative); Color,Urine Yellow (Yellow); Urobilinogen,Urine < 2.0 mg/dL (<2.0)
[2019-06-19 18:32] LABS: Amphetamine Screen,Urine PRESUMPTIVE NEGATIVE; Cannabinoid Screen,Urine PRESUMPTIVE NEGATIVE; Cocaine Screen,Urine PRESUMPTIVE NEGATIVE; Methadone Screen,Urine PRESUMPTIVE NEGATIVE; Opiate Screen,Urine PRESUMPTIVE NEGATIVE
[2019-06-19 18:48] LABS: Benzodiazepines Screen,Urine PRESUMPTIVE POSITIVE
--- NOTE | 2019-06-19 19:49 | Cat Scan Report ---
CTA CHEST WITH IV CONTRAST INDICATION: SOB, CHEST PAIN, Elevated D-Dimer.. TECHNIQUE: Axial CT images were obtained through the chest after injection of IV contrast. 3 plane MIP reconstru ctions were produced. All CT scans at this location are performed using CT dose reduction for ALARA b y means of automated exposure control. COMPARISON: CT chest 09/23/2016. FINDINGS: Pulmonary Arteries: No pulmonary emboli. Thoracic Aorta: No acute abnormality. Heart: Normal. Coronary Arteries: No significant calcification. Lungs: No acute air space or interstitial disease. There is scarring/round atelectasis within the lef t lower lung along the fissure and in the posterior lung base. There is also mild scarring versus ate lectasis in the dependent right lung base. Pleura: No pleural effusion. No pneumothorax. Lymph Nodes: No significant adenopathy. Additional Findings: None. Upper Abdomen: No acute findings. Skeletal Structures: No significant osseous abnormality. IMPRESSION: 1. No CT evidence for pulmonary embolism. 2. No acute findings. Signer Name: Dimitris Markham MD Signed: 06/19/2019 7:44 PM Workstation Name: [id number]
[2019-06-19] MEDS ORDERED: SODIUM CHLORIDE FLUSH SYRINGE 10 ML IV PRN ×2 (20:27)
[2019-06-19] MEDS ORDERED: MILK OF MAGNESIA PO PRN (20:27)
[2019-06-19] MEDS ORDERED: TYLENOL PO PRN (20:27)
[2019-06-19] MEDS ORDERED: AMBIEN PO PRN (20:27)
[2019-06-19] MEDS ORDERED: ZOFRAN IV PRN (20:27)
[2019-06-19] MEDS ORDERED: ASPIRIN PO ONE (20:54)
--- NOTE | 2019-06-19 20:57 | History and Physical Report ---
<LESLEY MARIA - Last Filed: 06/19/19 22:55> History of Present Illness Date of examination: 06/19/19 Date of admission: 06/19/2019 Chief complaint: chest pain, SOB History of present illness: Patient is 48-year-old with PMHx of depression and EtOH use disorder who presents to the ER with complaints of chest pain and SOB. Patient states that the chest pain started today located in the left substernal area associated with shortness of breath, palpitation and anxiety, he denied any radiation. Patient states that he suffers from severe anxiety and he usually drink alcohol to relieve his anxiety, last night he drinks half gallop of vodka. Patient states that his left leg had been very swollen, he had a red rash in his legs that he didn't know how he gets it, he had severe anxiety and difficulty breathing daily, he decided to come to the ER for evaluation. Patient reports depression and suicidal ideation, he states that he had been thinking about killing himself, 2 days ago he had his 22 pistol in his head wanting to kill himself, luckily he decided against it. Pt reports severe despair and hopelessness, he states that he loss elizabet in his future, he express fear of hunger, loss of income or resources, long-term and fear of . Pt c/o SOB, palpitation, he denies diaphoresis, denies n/v, denies headache, denies dizziness, denies fever or chills. He had an EKG in the ER that showed SR, his Troponin was elevated, hi s chest x-ray showed mild atelectasis changes at the bases, psych and cardiology were consulted and he is admitted for further evaluation and treatment. Past History Past Medical History: other (Depression) Past Surgical History: No surgical history Social history: Lives alone Family history: no significant family history Medications and Allergies Allergies Allergy/AdvReac Type Severity Reaction Status Date / Time No Known Allergies Allergy Verified 09/23/16 02:31 Home Medications Medication Instructions Recorded Confirmed Last Taken Type ALPRAZolam [Xanax TAB] 0.5 mg PO BID PRN 09/23/16 06/21/19 Unknown History Acetaminophen 650 mg PO Q6H PRN 09/23/16 06/21/19 Unknown History Levothyroxine [Synthroid] 75 mcg PO QAM 09/23/16 06/21/19 Unknown History PARoxetine [Paxil] 20 mg PO DAILY 09/23/16 06/21/19 Unknown History amLODIPine [Norvasc] 10 mg PO DAILY 09/23/16 06/21/19 Unknown History cloNIDine [Catapres] 0.2 mg PO BID 09/23/16 06/21/19 Unknown History Amoxicillin/K Clav Tab [Augmentin 1 tab PO Q12H #5 tablet 09/24/16 06/21/19 Unknown Rx 875MG TAB] Folic Acid 1 tab PO QDAY #30 tab 09/25/16 06/21/19 Unknown Rx Ibuprofen [Motrin] 800 mg PO Q8HR PRN #20 tablet 09/27/16 06/21/19 Unknown Rx Ibuprofen [Motrin] 600 mg PO Q8H PRN #20 tablet 11/25/17 06/21/19 Unknown Rx Meclizine [Antivert] 25 mg PO TID PRN #12 tablet 11/25/17 06/21/19 Unknown Rx Active Meds: Active Medications Acetaminophen (Tylenol) 650 mg PO Q4H PRN PRN Reason: Pain MILD(1-3)/Fever >100.5/PRAJAPATI Aspirin (Ecotrin) 325 mg PO QDAY JESSICA Atorvastatin Calcium (Lipitor) 40 mg PO QHS JESSICA Famotidine (Pepcid) 20 mg IV BID JESSICA Magnesium Hydroxide (Milk Of Magnesia) 30 ml PO Q4H PRN PRN Reason: Constipation Ondansetron HCl (Zofran) 4 mg IV Q8H PRN PRN Reason: Nausea And Vomiting Oxycodone/Acetaminophen (Percocet 5/325) 1 tab PO Q6H PRN PRN Reason: Pain, Moderate (4-6) Sodium Chloride (Sodium Chloride Flush Syringe 10 Ml) 10 ml IV BID JESSICA Sodium Chloride (Sodium Chloride Flush Syringe 10 Ml) 10 ml IV PRN PRN PRN Reason: LINE FLUSH Sodium Chloride (Sodium Chloride Flush Syringe 10 Ml) 10 ml IV PRN PRN PRN Reason: LINE FLUSH Zolpidem Tartrate (Ambien) 5 mg PO QHS PRN PRN Reason: Insomnia Review of Systems Cardiovascular: chest pain Respiratory: shortness of breath Musculoskeletal: other (lower extremities edema) Integumentary: other (rash, redness) Exam - Constitutional Vitals: Temp Pulse Resp BP Pulse Ox 98.1 F 73 18 136/76 87 06/19/19 14:56 06/19/19 16:00 06/19/19 14:56 06/19/19 17:00 06/19/19 17:00 General appearance: Present: no acute distress - EENT Eyes: Present: EOM intact ENT: hearing intact - Neck Neck: Present: normal ROM - Respiratory Respiratory effort: normal Respiratory: bilateral: CTA, diminished - Cardiovascular Rhythm: regular - Extremities Extremities: no ischemia Extremity abnormal: edema (3+ bilateral LEs) Peripheral Pulses: within normal limits - Abdominal General gastrointestinal: Present: soft, non-tender, non-distended Male genitourinary: Present: deferred - Rectal Rectal Exam: deferred - Integumentary Integumentary: Present: warm, dry - Musculoskeletal Musculoskeletal: strength equal bilaterally - Psychiatric Psychiatric: cooperative, depressed - Neurologic Neurologic: moves all extremities Results - Labs CBC & Chem 7: 06/19/19 21:54 06/19/19 21:00 Labs: Laboratory Last Values WBC 9.0 K/mm3 (4.5-11.0) 06/19/19 15:50 RBC 3.16 M/mm3 (3.65-5.03) L 06/19/19 15:50 Hgb 11.2 gm/dl (11.8-15.2) L 06/19/19 15:50 Hct 32.9 % (35.5-45.6) L 06/19/19 15:50 MCV 104 fl (84-94) H 06/19/19 15:50 MCH 35 pg (28-32) H 06/19/19 15:50 MCHC 34 % (32-34) 06/19/19 15:50 RDW 17.5 % (13.2-15.2) H 06/19/19 15:50 Plt Count 386 K/mm3 (140-440) 06/19/19 15:50 Lymph % (Auto) 18.0 % (13.4-35.0) 06/19/19 15:50 [place] % (Auto) 7.2 % (0.0-7.3) 06/19/19 15:50 Eos % (Auto) 0.3 % (0.0-4.3) 06/19/19 15:50 Baso % (Auto) 0.7 % (0.0-1.8) 06/19/19 15:50 Lymph # 1.6 K/mm3 (1.2-5.4) 06/19/19 15:50 [place] # 0.7 K/mm3 (0.0-0.8) 06/19/19 15:50 Eos # 0.0 K/mm3 (0.0-0.4) 06/19/19 15:50 Baso # 0.1 K/mm3 (0.0-0.1) 06/19/19 15:50 Seg Neutrophils % 73.8 % (40.0-70.0) H 06/19/19 15:50 Seg Neutrophils # 6.7 K/mm3 (1.8-7.7) 06/19/19 15:50 PT 14.2 Sec. (12.2-14.9) 06/19/19 15:50 INR 1.13 (0.87-1.13) 06/19/19 15:50 APTT 27.3 Sec. (24.2-36.6) 06/19/19 15:50 491.40 ng/mlDDU (0-234) H 06/19/19 15:50 Sodium 135 mmol/L (137-145) L 06/19/19 15:50 Potassium 4.1 mmol/L (3.6-5.0) 06/19/19 15:50 Chloride 95.1 mmol/L (98-107) L 06/19/19 15:50 Carbon Dioxide 25 mmol/L (22-30) 06/19/19 15:50 19 mmol/L 06/19/19 15:50 BUN 15 mg/dL (9-20) 06/19/19 15:50 1.3 mg/dL (0.8-1.5) 06/19/19 15:50 Estimated GFR 58 ml/min 06/19/19 15:50 12 % 06/19/19 15:50 Glucose 109 mg/dL (75-100) H 06/19/19 15:50 Calcium 9.1 mg/dL (8.4-10.2) 06/19/19 15:50 Magnesium 1.70 mg/dL (1.7-2.3) 06/19/19 17:00 0.50 mg/dL (0.1-1.2) 06/19/19 15:50 AST 27 units/L (5-40) 06/19/19 15:50 ALT 22 units/L (7-56) 06/19/19 15:50 116 units/L (35-129) 06/19/19 15:50 175 units/L (55-170) H 06/19/19 15:50 0.065 ng/mL (0.00-0.029) H 06/19/19 15:50 NT-Pro-B Natriuret Pep 342.2 pg/mL (0-900) 06/19/19 15:50 9.0 g/dL (6.3-8.2) H 06/19/19 15:50 3.5 g/dL (3.9-5) L 06/19/19 15:50 0.6 % 06/19/19 15:50 Triglycerides 119 mg/dL (2-149) 06/19/19 15:50 Cholesterol 118 mg/dL (50-199) 06/19/19 15:50 85 mg/dL (50-130) 06/19/19 15:50 28 mg/dL (40-59) L 06/19/19 15:50 4.21 % 06/19/19 15:50 TSH 13.750 mlU/mL (0.270-4.200) H 06/19/19 15:50 Yellow (Yellow) 06/19/19 18:10 Slightly-cloudy (Clear) 06/19/19 18:10 5.0 (5.0-7.0) 06/19/19 18:10 Ur Specific [place] 1.015 (1.003-1.030) 06/19/19 18:10 30 mg/dl mg/dL (Negative) 06/19/19 18:10 Neg mg/dL (Negative) 06/19/19 18:10 Neg mg/dL (Negative) 06/19/19 18:10 Lg (Negative) 06/19/19 18:10 Neg (Negative) 06/19/19 18:10 Neg (Negative) 06/19/19 18:10 < 2.0 mg/dL (<2.0) 06/19/19 18:10 Ur Leukocyte Esterase Neg (Negative) 06/19/19 18:10 6.0 /HPF (0.0-6.0) 06/19/19 18:10 15.0 /HPF (0.0-6.0) 06/19/19 18:10 1+ /HPF (Negative) 06/19/19 18:10 Salicylates < 0.3 mg/dL (2.8-20.0) L 06/19/19 15:50 Presumptive negative 06/19/19 18:10 Presumptive negative 06/19/19 18:10 Acetaminophen < 5.0 ug/mL (10.0-30.0) L 06/19/19 15:50 Ur Barbiturates Screen Presumptive negative 06/19/19 18:10 Ur Phencyclidine Scrn Presumptive negative 06/19/19 18:10 Ur Amphetamines Screen Presumptive negative 06/19/19 18:10 U Benzodiazepines Scrn Presumptive positive 06/19/19 18:10 Presumptive negative 06/19/19 18:10 U Marijuana (THC) Screen Presumptive negative 06/19/19 18:10 Disclamer 06/19/19 18:10 Plasma/Serum Alcohol < 0.01 % (0-0.07) 06/19/19 15:50 Assessment and Plan Assessment and plan: 1. Chest pain 2. Elevated troponin 3. Accelerated HTN 4. Bilateral LE edema 5. Severe anxiety 6. Alcohol used disorder 7. Severe depression with suicidal ideation 8. Vasculitis with venous status/ edema of the lower exts Plan: Admit to medtele Consult cardiology for evaluation Psych consult for suicidal ideation Continue CE q6hrs x 2 more heparin per cardiac protocol fo elevated trop Cardiac diet, NPO post MN Lasix IV q12hr x 3 CIWA protocol with IV ativan Suicidal precaution (08/21) 1-1 observation Consult wound care Plan d/w pt, voiced understanding Pt's condition and plan of care d/w Dr Singer Advance Directives: Yes VTE prophylaxis?: Chemical Plan of care discussed with patient/family: Yes <FARAZ SINGER - Last Filed: 06/28/19 04:33> History of Present Illness Date of admission: 06/19/19 20:28 Medications and Allergies Active Meds: Active Medications Acetaminophen (Tylenol) 650 mg PO Q4H PRN PRN Reason: Pain MILD(1-3)/Fever >100.5/PRAJAPATI Aspirin (Ecotrin) 325 mg PO QDAY JESSICA Atorvastatin Calcium (Lipitor) 40 mg PO QHS [facility] Last Admin: 06/19/19 21:35 Dose: 40 mg Documented by: Famotidine (Pepcid) 20 mg IV BID [facility] Last Admin: 06/19/19 23:04 Dose: 20 mg Documented by: Furosemide (Lasix) 40 mg IV Q12HR [facility] Stop: 06/21/19 21:59 Last Admin: 06/19/19 23:04 Dose: 40 mg Documented by: Heparin Sodium/Sodium Chloride (Heparin/ 0.45% Nacl-25,000 Unit/500 Ml) 25,000 unit in 500 mls @ 20 mls/hr IV TITRATE [facility]; Protocol Last Admin: 06/20/19 02:07 Dose: 1,000 units/hr, 20 mls/hr Documented by: Lorazepam (Ativan) 2 mg IV Q1H PRN PRN Reason: CIWA-Ar 8-15 Lorazepam (Ativan) 4 mg IV Q1H PRN PRN Reason: CIWA-Ar 16-25 Lorazepam (Ativan) 4 mg IV Q15MIN PRN PRN Reason: CIWA-Ar >25 Magnesium Hydroxide (Milk Of Magnesia) 30 ml PO Q4H PRN PRN Reason: Constipation Ondansetron HCl (Zofran) 4 mg IV Q8H PRN PRN Reason: Nausea And Vomiting Oxycodone/Acetaminophen (Percocet 5/325) 1 tab PO Q6H PRN PRN Reason: Pain, Moderate (4-6) Sodium Chloride (Sodium Chloride Flush Syringe 10 Ml) 10 ml IV BID [facility] Last Admin: 06/19/19 23:05 Dose: 10 ml Documented by: Sodium Chloride (Sodium Chloride Flush Syringe 10 Ml) 10 ml IV PRN PRN PRN Reason: LINE FLUSH Sodium Chloride (Sodium Chloride Flush Syringe 10 Ml) 10 ml IV PRN PRN PRN Reason: LINE FLUSH Exam - Constitutional Vitals: Temp Pulse Resp BP Pulse Ox 98.1 F 69 20 131/84 93 06/20/19 00:06 06/20/19 00:06 06/20/19 00:06 06/20/19 00:06 06/20/19 00:06 Results - Labs CBC & Chem 7: 06/19/19 21:54 06/27/19 14:42 Labs: Laboratory Last Values WBC 8.5 K/mm3 (4.5-11.0) 06/19/19 21:00 RBC 3.18 M/mm3 (3.65-5.03) L 06/19/19 21:00 Hgb 11.3 gm/dl (11.8-15.2) L 06/19/19 21:54 Hct 33.3 % (35.5-45.6) L 06/19/19 21:54 MCV 102 fl (84-94) H 06/19/19 21:00 MCH 35 pg (28-32) H 06/19/19 21:00 MCHC 34 % (32-34) 06/19/19 21:00 RDW 17.9 % (13.2-15.2) H 06/19/19 21:00 Plt Count 371 K/mm3 (140-440) 06/19/19 21:54 Lymph % (Auto) 18.7 % (13.4-35.0) 06/19/19 21:00 [place] % (Auto) 9.8 % (0.0-7.3) H 06/19/19 21:00 Eos % (Auto) 0.3 % (0.0-4.3) 06/19/19 21:00 Baso % (Auto) 0.7 % (0.0-1.8) 06/19/19 21:00 Lymph # 1.6 K/mm3 (1.2-5.4) 06/19/19 21:00 [place] # 0.8 K/mm3 (0.0-0.8) 06/19/19 21:00 Eos # 0.0 K/mm3 (0.0-0.4) 06/19/19 21:00 Baso # 0.1 K/mm3 (0.0-0.1) 06/19/19 21:00 Seg Neutrophils % 70.5 % (40.0-70.0) H 06/19/19 21:00 Seg Neutrophils # 6.0 K/mm3 (1.8-7.7) 06/19/19 21:00 PT 14.5 Sec. (12.2-14.9) 06/19/19 21:54 INR 1.16 (0.87-1.13) H 06/19/19 21:54 APTT 24.4 Sec. (24.2-36.6) 06/19/19 21:54 491.40 ng/mlDDU (0-234) H 06/19/19 15:50 Sodium 135 mmol/L (137-145) L 06/19/19 21:00 Potassium 3.8 mmol/L (3.6-5.0) 06/19/19 21:00 Chloride 96.4 mmol/L (98-107) L 06/19/19 21:00 Carbon Dioxide 26 mmol/L (22-30) 06/19/19 21:00 16 mmol/L 06/19/19 21:00 BUN 16 mg/dL (9-20) 06/19/19 21:00 1.2 mg/dL (0.8-1.5) 06/19/19 21:00 Estimated GFR > 60 ml/min 06/19/19 21:00 13 % 06/19/19 21:00 Glucose 105 mg/dL (75-100) H 06/19/19 21:00 Calcium 8.5 mg/dL (8.4-10.2) 06/19/19 21:00 Magnesium 1.70 mg/dL (1.7-2.3) 06/19/19 17:00 0.50 mg/dL (0.1-1.2) 06/19/19 15:50 AST 27 units/L (5-40) 06/19/19 15:50 ALT 22 units/L (7-56) 06/19/19 15:50 116 units/L (35-129) 06/19/19 15:50 175 units/L (55-170) H 06/19/19 15:50 0.081 ng/mL (0.00-0.029) H D 06/20/19 00:38 NT-Pro-B Natriuret Pep 342.2 pg/mL (0-900) 06/19/19 15:50 9.0 g/dL (6.3-8.2) H 06/19/19 15:50 3.5 g/dL (3.9-5) L 06/19/19 15:50 0.6 % 06/19/19 15:50 Triglycerides 119 mg/dL (2-149) 06/19/19 15:50 Cholesterol 118 mg/dL (50-199) 06/19/19 15:50 85 mg/dL (50-130) 06/19/19 15:50 28 mg/dL (40-59) L 06/19/19 15:50 4.21 % 06/19/19 15:50 TSH 13.750 mlU/mL (0.270-4.200) H 06/19/19 15:50 Yellow (Yellow) 06/19/19 18:10 Slightly-cloudy (Clear) 06/19/19 18:10 5.0 (5.0-7.0) 06/19/19 18:10 Ur Specific [place] 1.015 (1.003-1.030) 06/19/19 18:10 30 mg/dl mg/dL (Negative) 06/19/19 18:10 Neg mg/dL (Negative) 06/19/19 18:10 Neg mg/dL (Negative) 06/19/19 18:10 Lg (Negative) 06/19/19 18:10 Neg (Negative) 06/19/19 18:10 Neg (Negative) 06/19/19 18:10 < 2.0 mg/dL (<2.0) 06/19/19 18:10 Ur Leukocyte Esterase Neg (Negative) 06/19/19 18:10 6.0 /HPF (0.0-6.0) 06/19/19 18:10 15.0 /HPF (0.0-6.0) 06/19/19 18:10 1+ /HPF (Negative) 06/19/19 18:10 Salicylates < 0.3 mg/dL (2.8-20.0) L 06/19/19 15:50 Presumptive negative 06/19/19 18:10 Presumptive negative 06/19/19 18:10 Acetaminophen < 5.0 ug/mL (10.0-30.0) L 06/19/19 15:50 Ur Barbiturates Screen Presumptive negative 06/19/19 18:10 Ur Phencyclidine Scrn Presumptive negative 06/19/19 18:10 Ur Amphetamines Screen Presumptive negative 06/19/19 18:10 U Benzodiazepines Scrn Presumptive positive 06/19/19 18:10 Presumptive negative 06/19/19 18:10 U Marijuana (THC) Screen Presumptive negative 08/11/19 18:10 Disclamer 06/19/19 18:10 Plasma/Serum Alcohol < 0.01 % (0-0.07) 06/19/19 15:50 Assessment and Plan Assessment and plan: 48 year old man with hypertension, hypothyroidism, anxiety, CHF, depression was on the bus and needed to drain but was unable to obtain one because the store was not open,started feeling, out of breath, chest pain, palpitation and chest pain,he felt like he was having an anxiety attack. Try to kill himself with ESHAP component, and has not taken any medication in the last 1 month. Agree with plan as stated above, except d/c sleeping pill, Haldol too many sedatives. Hold heparin gtt. check echo
[2019-06-19] MEDS ORDERED: ASPIRIN ONE (21:03)
[2019-06-19 21:17] LABS: Basophils # (Auto) 0.1 K/mm3 (0.0-0.1); Basophils % (Auto) 0.7 % (0.0-1.8); Eosinophils % (Auto) 0.3 % (0.0-4.3); Hematocrit 32.5 % (35.5-45.6); Hemoglobin 11.1 gm/dl (11.8-15.2); Lymphocytes # (Auto) 1.6 K/mm3 (1.2-5.4); Lymphocytes % (Auto) 18.7 % (13.4-35.0); Mean Corpuscular HGB Conc 34 % (32-34); Mean Corpuscular Volume 102 fl (84-94); Monocytes # (Auto) 0.8 K/mm3 (0.0-0.8); Monocytes % (Auto) 9.8 % (0.0-7.3); Platelet Count 367 K/mm3 (140-440); Red Blood Count 3.18 M/mm3 (3.65-5.03); Red Cell Distribution Width 17.9 % (13.2-15.2)
[2019-06-19] MEDS ORDERED: HALDOL IV PRN (21:18)
[2019-06-19] MEDS ORDERED: ATIVAN IV PRN ×2 (21:18)
[2019-06-19 21:31] LABS: BUN/Creatinine Ratio 13; Blood Urea Nitrogen 16 mg/dL (9-20); Calcium 8.5 mg/dL (8.4-10.2); Hemolysis Index 0
[2019-06-19] MEDS ORDERED: HEPARIN 10,000 UNITS/10 ML IV ONE (21:31)
[2019-06-19] MEDS ORDERED: LASIX IV ONE (21:37)
[2019-06-19] MEDS ORDERED: HEPARIN/ 0.45% NACL-25,000 UNIT/500 ML 25,000 UNIT/500 ML BAG IV SCH (22:00)
[2019-06-19 22:08] LABS: Hematocrit 33.3 % (35.5-45.6); Hemoglobin 11.3 gm/dl (11.8-15.2)
[2019-06-19 22:19] LABS: INR 1.16 (0.87-1.13)
[2019-06-19 22:20] LABS: Partial Thromboplastin Time 24.4 Sec. (24.2-36.6)
[2019-06-19] MEDS: LASIX IV SCH (23:04)
[2019-06-19] MEDS: PEPCID IV SCH (23:04)
[2019-06-19] MEDS: SODIUM CHLORIDE FLUSH SYRINGE 10 ML IV SCH (23:05)
[2019-06-20] MEDS: ATIVAN IV PRN ×3 (08:56→22:19)
[2019-06-20] MEDS: PERCOCET 5/325 PO PRN ×3 (08:56→22:16)
[2019-06-20] MEDS: LOVENOX SUB-Q SCH (09:00)
[2019-06-20] MEDS: PEPCID IV SCH ×2 (09:01→22:16)
[2019-06-20] MEDS: SODIUM CHLORIDE FLUSH SYRINGE 10 ML IV SCH ×2 (09:01→22:31)
[2019-06-20] MEDS: LASIX IV SCH ×2 (09:01→22:16)
[2019-06-20] MEDS: ECOTRIN PO SCH (09:02)
--- NOTE | 2019-06-20 11:42 | Progress Note ---
Assessment and Plan Assessment and plan: 48-year-old man who presents to the hospital with chest pain or shortness of breath, complaining of swollen left leg and rash on his legs. He also reports suicidal ideation Past medical history major depression, alcohol abuse, anxiety disorder for which he claims he drinks alcohol to relieve his anxiety and, about half a gallon of vodka daily Chest x-ray; atelectasis in the bases CT head; no acute findings duplex scan of lower extremities; no DVT in either extremity CT angiogram chest ; Negative for PE, no acute findings Chest pain cardiology consults Hypertensive urgency Optimize blood pressure medications Bilateral lower extremity edema/venous stasis of lower extremities Diuretics, echo pending, Dopplers negative for DVT History and physical states that patient has vasculitis; there is no evidence of vasculitis, only venous stasis Suicidal ideation/major depression On 1012, mental health consult Alcohol dependence Preventative health counseling performed 17 minutes spent CIWA protocol, folate and thiamine Hypothyroidism TSH severely elevated, obtain T4 free T4. Hypothyroidism may be a contribution factor to his depression dvt ppx; lovenox History Interval history: Patient remains depressed and feels very sad reiew of systems Constitutional: No fevers, no malaise, no joint pains CVS: No chest pain, no orthopnea, no dyspnea on exertion, no pedal edema GI: No abdominal pain, no diarrhea, no vomiting, no constipation Respiratory: no wheezing, no coughing Hospitalist Physical - Physical exam Narrative exam: General.: Appears well, no distress, nontoxic HEENT: Moist mucous membranes, extraocular muscles intact, no lymphadenopathy Neck: supple Cardiac: S1-S2 heard Lungs: clear to auscultation bilaterally Abdomen: soft , nontender, nondistended, bowel sounds positive Extremities: no edema clubbing or cyanosis Skin: no rash or lesions Neurologic: no gross focal deficits Psych: calm, and cooperative, patient is depressed - Constitutional Vitals: Temp Pulse Resp BP Pulse Ox 97.5 F L 54 L 18 132/74 97 06/20/19 08:07 06/20/19 08:07 06/20/19 08:07 06/20/19 08:07 06/20/19 08:07 General appearance: Present: no acute distress Results - Labs CBC & Chem 7: 06/19/19 21:54 06/19/19 21:00 Labs: Laboratory Last Values WBC 8.5 K/mm3 (4.5-11.0) 06/19/19 21:00 RBC 3.18 M/mm3 (3.65-5.03) L 06/19/19 21:00 Hgb 11.3 gm/dl (11.8-15.2) L 06/19/19 21:54 Hct 33.3 % (35.5-45.6) L 06/19/19 21:54 MCV 102 fl (84-94) H 06/19/19 21:00 MCH 35 pg (28-32) H 06/19/19 21:00 MCHC 34 % (32-34) 06/19/19 21:00 RDW 17.9 % (13.2-15.2) H 06/19/19 21:00 Plt Count 371 K/mm3 (140-440) 06/19/19 21:54 Lymph % (Auto) 18.7 % (13.4-35.0) 06/19/19 21:00 [place] % (Auto) 9.8 % (0.0-7.3) H 06/19/19 21:00 Eos % (Auto) 0.3 % (0.0-4.3) 06/19/19 21:00 Baso % (Auto) 0.7 % (0.0-1.8) 06/19/19 21:00 Lymph # 1.6 K/mm3 (1.2-5.4) 06/19/19 21:00 [place] # 0.8 K/mm3 (0.0-0.8) 06/19/19 21:00 Eos # 0.0 K/mm3 (0.0-0.4) 06/19/19 21:00 Baso # 0.1 K/mm3 (0.0-0.1) 06/19/19 21:00 Seg Neutrophils % 70.5 % (40.0-70.0) H 06/19/19 21:00 Seg Neutrophils # 6.0 K/mm3 (1.8-7.7) 06/19/19 21:00 PT 14.5 Sec. (12.2-14.9) 06/19/19 21:54 INR 1.16 (0.87-1.13) H 06/19/19 21:54 APTT 24.4 Sec. (24.2-36.6) 06/19/19 21:54 491.40 ng/mlDDU (0-234) H 06/19/19 15:50 Heparin Anti-Xa Level < 0.10 U.I./ml (0.3-0.7) L 06/20/19 08:05 Sodium 135 mmol/L (137-145) L 06/19/19 21:00 Potassium 3.8 mmol/L (3.6-5.0) 06/19/19 21:00 Chloride 96.4 mmol/L (98-107) L 06/19/19 21:00 Carbon Dioxide 26 mmol/L (22-30) 06/19/19 21:00 16 mmol/L 06/19/19 21:00 BUN 16 mg/dL (9-20) 06/19/19 21:00 1.2 mg/dL (0.8-1.5) 06/19/19 21:00 Estimated GFR > 60 ml/min 06/19/19 21:00 13 % 06/19/19 21:00 Glucose 105 mg/dL (75-100) H 06/19/19 21:00 Calcium 8.5 mg/dL (8.4-10.2) 06/19/19 21:00 Magnesium 1.70 mg/dL (1.7-2.3) 06/19/19 17:00 0.50 mg/dL (0.1-1.2) 06/19/19 15:50 AST 27 units/L (5-40) 06/19/19 15:50 ALT 22 units/L (7-56) 06/19/19 15:50 116 units/L (35-129) 06/19/19 15:50 175 units/L (55-170) H 06/19/19 15:50 0.066 ng/mL (0.00-0.029) H 06/20/19 05:00 NT-Pro-B Natriuret Pep 342.2 pg/mL (0-900) 06/19/19 15:50 9.0 g/dL (6.3-8.2) H 06/19/19 15:50 3.5 g/dL (3.9-5) L 06/19/19 15:50 0.6 % 06/19/19 15:50 Triglycerides 119 mg/dL (2-149) 06/19/19 15:50 Cholesterol 118 mg/dL (50-199) 06/19/19 15:50 85 mg/dL (50-130) 06/19/19 15:50 28 mg/dL (40-59) L 06/19/19 15:50 4.21 % 06/19/19 15:50 TSH 13.750 mlU/mL (0.270-4.200) H 06/19/19 15:50 Yellow (Yellow) 06/19/19 18:10 Slightly-cloudy (Clear) 06/19/19 18:10 5.0 (5.0-7.0) 06/19/19 18:10 Ur Specific [place] 1.015 (1.003-1.030) 06/19/19 18:10 30 mg/dl mg/dL (Negative) 06/19/19 18:10 Neg mg/dL (Negative) 06/19/19 18:10 Neg mg/dL (Negative) 06/19/19 18:10 Lg (Negative) 06/19/19 18:10 Neg (Negative) 06/19/19 18:10 Neg (Negative) 06/19/19 18:10 < 2.0 mg/dL (<2.0) 06/19/19 18:10 Ur Leukocyte Esterase Neg (Negative) 06/19/19 18:10 6.0 /HPF (0.0-6.0) 06/19/19 18:10 15.0 /HPF (0.0-6.0) 06/19/19 18:10 1+ /HPF (Negative) 06/19/19 18:10 Salicylates < 0.3 mg/dL (2.8-20.0) L 06/19/19 15:50 Presumptive negative 06/19/19 18:10 Presumptive negative 06/19/19 18:10 Acetaminophen < 5.0 ug/mL (10.0-30.0) L 06/19/19 15:50 Ur Barbiturates Screen Presumptive negative 06/19/19 18:10 Ur Phencyclidine Scrn Presumptive negative 06/19/19 18:10 Ur Amphetamines Screen Presumptive negative 06/19/19 18:10 U Benzodiazepines Scrn Presumptive positive 06/19/19 18:10 Presumptive negative 06/19/19 18:10 U Marijuana (THC) Screen Presumptive negative 06/19/19 18:10 Disclamer 06/19/19 18:10 Plasma/Serum Alcohol < 0.01 % (0-0.07) 06/19/19 15:50 Active Medications - Current Medications Current Medications: Generic Name Dose Route Start Last Admin Trade Name Freq PRN Reason Stop Dose Admin Acetaminophen 650 mg 06/19/19 20:27 Tylenol PO Q4H PRN Pain MILD(1-3)/Fever >100.5/PRAJAPATI Aspirin 325 mg 06/20/19 10:00 06/20/19 09:02 Ecotrin PO 325 mg QDAY JESSICA Administration Atorvastatin Calcium 40 mg 06/19/19 22:00 06/19/19 21:35 Lipitor PO 40 mg QHS JESSICA Administration Enoxaparin Sodium 40 mg 06/20/19 10:00 06/20/19 09:00 Lovenox SUB-Q 40 mg QDAY JESSICA Administration Famotidine 20 mg 06/19/19 22:00 06/20/19 09:01 Pepcid IV 20 mg BID JESSICA Administration Furosemide 40 mg 06/19/19 22:00 06/20/19 09:01 Lasix IV 06/21/19 21:59 40 mg Q12HR JESSICA Administration Lorazepam 2 mg 06/19/19 21:18 06/20/19 08:56 Ativan IV 2 mg Q1H PRN Administration CIWA-Ar 8-15 Lorazepam 4 mg 06/19/19 21:18 Ativan IV Q1H PRN CIWA-Ar 16-25 Lorazepam 4 mg 06/19/19 21:18 Ativan IV Q15MIN PRN CIWA-Ar >25 Magnesium Hydroxide 30 ml 06/19/19 20:27 Milk Of Magnesia PO Q4H PRN Constipation Ondansetron HCl 4 mg 06/19/19 20:27 Zofran IV Q8H PRN Nausea And Vomiting Oxycodone/Acetaminophen 1 tab 06/19/19 20:27 06/20/19 08:56 Percocet 5/325 PO 1 tab Q6H PRN Administration Pain, Moderate (4-6) Sodium Chloride 10 ml 06/19/19 22:00 06/20/19 09:01 Sodium Chloride Flush Syringe 10 Ml IV 10 ml BID JESSICA Administration Sodium Chloride 10 ml 06/19/19 20:27 Sodium Chloride Flush Syringe 10 Ml IV PRN PRN LINE FLUSH
--- NOTE | 2019-06-20 11:54 | Consultation ---
History of Present Illness Consult date: 06/20/19 Consult reason: chest pain, elevated troponin History of present illness: This is a 48-year old male with a history of alcohol abuse, depression who is admitted with suicide ideation. In addition, while in the emergency department patient complained of chest pain, shortness of breath and lower extremity edema. Initial labs revealed an elevated TSH at 13.7. There is a mild elevated of troponin. Chest CTA was negative for PE and his ECG is benign, a normal sinus rhythm. No acute ischemic changes. Past History Past Medical History: other (Depression) Social history: Lives alone Family history: no significant family history Medications and Allergies Allergies Allergy/AdvReac Type Severity Reaction Status Date / Time No Known Allergies Allergy Verified 09/23/16 02:31 Home Medications Medication Instructions Recorded Confirmed Last Taken Type ALPRAZolam [Xanax TAB] 0.5 mg PO BID PRN 09/23/16 09/23/16 Unknown History Acetaminophen 650 mg PO Q6H PRN 09/23/16 09/23/16 Unknown History Levothyroxine [Synthroid] 75 mcg PO QAM 09/23/16 09/23/16 Unknown History PARoxetine [Paxil] 20 mg PO DAILY 09/23/16 09/23/16 Unknown History amLODIPine [Norvasc] 10 mg PO DAILY 09/23/16 09/23/16 Unknown History cloNIDine [Catapres] 0.2 mg PO BID 09/23/16 09/23/16 Unknown History Amoxicillin/K Clav Tab [Augmentin 1 tab PO Q12H #5 tablet 09/24/16 Unknown Rx 875MG TAB] Folic Acid 1 tab PO QDAY #30 tab 09/25/16 Unknown Rx Ibuprofen [Motrin] 800 mg PO Q8HR PRN #20 tablet 09/27/16 Unknown Rx Ibuprofen [Motrin] 600 mg PO Q8H PRN #20 tablet 11/25/17 Unknown Rx Meclizine [Antivert] 25 mg PO TID PRN #12 tablet 11/25/17 Unknown Rx Active Meds: Active Medications Acetaminophen (Tylenol) 650 mg PO Q4H PRN PRN Reason: Pain MILD(1-3)/Fever >100.5/PRAJAPATI Aspirin (Ecotrin) 325 mg PO QDAY [facility]ESS[facility] Last Admin: 06/20/19 09:02 Dose: 325 mg Documented by: Atorvastatin Calcium (Lipitor) 40 mg PO QHS [facility] Last Admin: 06/19/19 21:35 Dose: 40 mg Documented by: Enoxaparin Sodium (Lovenox) 40 mg SUB-Q QDAY [facility] Last Admin: 06/20/19 09:00 Dose: 40 mg Documented by: Famotidine (Pepcid) 20 mg IV BID [facility] Last Admin: 06/20/19 09:01 Dose: 20 mg Documented by: Folic Acid (Folvite) 1 mg PO QDAY [facility] Furosemide (Lasix) 40 mg IV Q12HR [facility] Stop: 06/21/19 21:59 Last Admin: 06/20/19 09:01 Dose: 40 mg Documented by: Lorazepam (Ativan) 2 mg IV Q1H PRN PRN Reason: CIWA-Ar 8-15 Last Admin: 06/20/19 08:56 Dose: 2 mg Documented by: Lorazepam (Ativan) 4 mg IV Q1H PRN PRN Reason: CIWA-Ar 16-25 Lorazepam (Ativan) 4 mg IV Q15MIN PRN PRN Reason: CIWA-Ar >25 Magnesium Hydroxide (Milk Of Magnesia) 30 ml PO Q4H PRN PRN Reason: Constipation Ondansetron HCl (Zofran) 4 mg IV Q8H PRN PRN Reason: Nausea And Vomiting Oxycodone/Acetaminophen (Percocet 5/325) 1 tab PO Q6H PRN PRN Reason: Pain, Moderate (4-6) Last Admin: 06/20/19 08:56 Dose: 1 tab Documented by: Sodium Chloride (Sodium Chloride Flush Syringe 10 Ml) 10 ml IV BID [facility] Last Admin: 06/20/19 09:01 Dose: 10 ml Documented by: Sodium Chloride (Sodium Chloride Flush Syringe 10 Ml) 10 ml IV PRN PRN PRN Reason: LINE FLUSH Thiamine HCl (Vitamin B-1) 100 mg PO QDAY [facility] Physical Examination Vital Signs Pulse 81 06/19/19 14:47 General appearance: no acute distress HEENT: Positive: PERRL Neck: Positive: trachea midline Cardiac: Positive: Reg Rate and Rhythm Lungs: Positive: Decreased Breath Sounds Neuro: Positive: Grossly Intact Extremities: Present: edema Results 06/19/19 21:54 06/19/19 21:00 Cardiac Enzymes 06/19/19 Range/Units 15:50 AST 27 (5-40) units/L Coagulation 06/19/19 06/19/19 Range/Units 15:50 21:54 PT 14.2 14.5 (12.2-14.9) Sec. INR 1.13 1.16 H (0.87-1.13) APTT 27.3 24.4 (24.2-36.6) Sec. Lipids 06/19/19 Range/Units 15:50 Triglycerides 119 (2-149) mg/dL Cholesterol 118 (50-199) mg/dL HDL Cholesterol 28 L (40-59) mg/dL Cholesterol/HDL Ratio 4.21 % CBC 06/19/19 06/19/19 06/19/19 Range/Units 15:50 21:00 21:54 WBC 9.0 8.5 (4.5-11.0) K/mm3 RBC 3.16 L 3.18 L (3.65-5.03) M/mm3 Hgb 11.2 L 11.1 L 11.3 L (11.8-15.2) gm/dl Hct 32.9 L 32.5 L 33.3 L (35.5-45.6) % Plt Count 386 367 371 (140-440) K/mm3 Lymph # 1.6 1.6 (1.2-5.4) K/mm3 [place] # 0.7 0.8 (0.0-0.8) K/mm3 Eos # 0.0 0.0 (0.0-0.4) K/mm3 Baso # 0.1 0.1 (0.0-0.1) K/mm3 Comprehensive Metabolic Panel 06/19/19 06/19/19 Range/Units 15:50 21:00 Sodium 135 L 135 L (137-145) mmol/L Potassium 4.1 3.8 (3.6-5.0) mmol/L Chloride 95.1 L 96.4 L (98-107) mmol/L Carbon Dioxide 25 26 (22-30) mmol/L BUN 15 16 (9-20) mg/dL Creatinine 1.3 1.2 (0.8-1.5) mg/dL Glucose 109 H 105 H (75-100) mg/dL Calcium 9.1 8.5 (8.4-10.2) mg/dL AST 27 (5-40) units/L ALT 22 (7-56) units/L Alkaline Phosphatase 116 (35-129) units/L Total Protein 9.0 H (6.3-8.2) g/dL Albumin 3.5 L (3.9-5) g/dL Assessment and Plan Suicide ideation Depression Chest pain Shortness of breath Mild elevated troponin ETOH abuse Hyperthyroidism TSH 13.7
[2019-06-20] MEDS: FOLVITE PO SCH (18:29)
[2019-06-20] MEDS: VITAMIN B-1 PO SCH (18:29)
[2019-06-21] MEDS: PERCOCET 5/325 PO PRN (06:22)
[2019-06-21] MEDS: ATIVAN IV PRN ×3 (06:23→20:10)
--- NOTE | 2019-06-21 09:01 | Progress Note ---
Assessment and Plan Suicide ideation Depression Chest pain, atypical Shortness of breath Mild elevated troponin ETOH abuse Hyperthyroidism TSH 13.7 Echocardiogram shows left ventricle systolic function of the lower limits of normal, ejection fraction 50%, otherwise no significant valvular lesions. Recommendations: No further cardiac workup is indicated. Internal medicine and psychiatric for further management of the patient's social issues, substance abuse and depression. We will follow intermittently. Subjective Date of service: 06/21/19 Interval history: Patient is resting in bed comfortably. Sitter is at the bedside. Objective Vital Signs Temp Pulse Resp Resp BP Pulse Ox 06/21/19 07:27 97.8 F 69 18 144/94 96 06/21/19 06:22 20 06/21/19 04:01 98.1 F 59 L 18 130/80 95 06/21/19 00:14 98.2 F 56 L 18 135/84 97 06/21/19 00:00 65 06/20/19 22:16 20 06/20/19 22:00 20 06/20/19 21:12 20 06/20/19 19:36 98.1 F 68 18 117/80 97 06/20/19 17:07 97.5 F L 59 L 18 154/75 98 06/20/19 13:01 97.3 F L 66 20 124/74 99 - Physical Examination General: No Apparent Distress HEENT: Positive: PERRL Neck: Positive: trachea midline Cardiac: Positive: Reg Rate and Rhythm Lungs: Positive: Decreased Breath Sounds Neuro: Positive: Grossly Intact Extremities: Present: edema
[2019-06-21] MEDS: LOVENOX SUB-Q SCH (10:43)
[2019-06-21] MEDS: ECOTRIN PO SCH (10:43)
[2019-06-21] MEDS: LASIX IV SCH (10:44)
[2019-06-21] MEDS: VITAMIN B-1 PO SCH (10:44)
[2019-06-21] MEDS: PEPCID IV SCH (10:44)
[2019-06-21] MEDS: FOLVITE PO SCH (10:44)
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
--- NOTE | 2019-06-21 12:25 | Progress Note ---
Assessment and Plan Assessment and plan: Patient is a 48-year-old man with a history of bipolar disoder, MDD, alcohol and tobacco abuse who presents to the hospital with chest pain or shortness of breath, complaining of swollen left leg and rash on his legs. He also reports suicidal ideation * Chest x-ray; atelectasis in the bases * CT head; no acute findings duplex scan of lower extremities; no DVT in either extremity * CT angiogram chest ; Negative for PE, no acute findings Chest pain Cardiology consulted, atypical, suspected psychosomatic Hypertensive urgency Optimize blood pressure medications Bilateral lower extremity edema/venous stasis of lower extremities Diuretics, echo pending, Dopplers negative for DVT History and physical states that patient has vasculitis; there is no evidence of vasculitis, only venous stasis Suicidal ideation/major depression On 1013, mental health consult I called [facility] because they signed off, which I believe pt needs continuous care possible inpatient psych placement Alcohol dependence Preventative health counseling performed 17 minutes spent CIWA protocol, folate and thiamine Hypothyroidism TSH severely elevated, obtain T4 free T4. Hypothyroidism may be a contribution factor to his depression start levothyroxine 50mcg/d DVT ppx; lovenox Disposition: continue inpatient care, possible inpatient psych placement or stabilize mental health and psych remove 1013 History Interval history: Patient was seen and examined. Follow-up on current diagnosis. No overnight events reported to me. Patient denies any chest pain, shortness breath, nausea/vomiting or severe headaches. Imaging, nursing note, chart, labs and old chart reviewed. Discussed with patient. Hospitalist Physical - Physical exam Narrative exam: Gen: WDWN, NAD, Awake, Alert, Orientated HEENT: NCAT, EOMI, PERRL, OP Clear Neck: supple, no adenopathy, no thyromegaly, no JVD CVS/Heart: RRR, normal S1S2, pulses present bilaterally Chest/Lungs: CTA B, Symmetrical chest expansion, good air entry bilaterally GI/Abdomen: soft, NTND, good bowel sounds, no guarding or rebound /Bladder: no suprapubic tenderness, no CVA or paraspinal tenderness Extermity/Skin: no c/c/e, no obvious rash MSK: FROM x 4 Neuro: CN 2-12 grossly intact, no new focal deficits Psych: calm - Constitutional Vitals: Temp Pulse Resp BP Pulse Ox 97.8 F 69 18 144/94 96 06/21/19 07:27 06/21/19 07:27 06/21/19 07:27 06/21/19 07:27 06/21/19 07:27 General appearance: Present: no acute distress Results - Labs CBC & Chem 7: 06/19/19 21:54 06/19/19 21:00 Labs: Laboratory Last Values WBC 8.5 K/mm3 (4.5-11.0) 06/19/19 21:00 RBC 3.18 M/mm3 (3.65-5.03) L 06/19/19 21:00 Hgb 11.3 gm/dl (11.8-15.2) L 06/19/19 21:54 Hct 33.3 % (35.5-45.6) L 06/19/19 21:54 MCV 102 fl (84-94) H 06/19/19 21:00 MCH 35 pg (28-32) H 06/19/19 21:00 MCHC 34 % (32-34) 06/19/19 21:00 RDW 17.9 % (13.2-15.2) H 06/19/19 21:00 Plt Count 371 K/mm3 (140-440) 06/19/19 21:54 Lymph % (Auto) 18.7 % (13.4-35.0) 06/19/19 21:00 [place] % (Auto) 9.8 % (0.0-7.3) H 06/19/19 21:00 Eos % (Auto) 0.3 % (0.0-4.3) 06/19/19 21:00 Baso % (Auto) 0.7 % (0.0-1.8) 06/19/19 21:00 Lymph # 1.6 K/mm3 (1.2-5.4) 06/19/19 21:00 [place] # 0.8 K/mm3 (0.0-0.8) 06/19/19 21:00 Eos # 0.0 K/mm3 (0.0-0.4) 06/19/19 21:00 Baso # 0.1 K/mm3 (0.0-0.1) 06/19/19 21:00 Seg Neutrophils % 70.5 % (40.0-70.0) H 06/19/19 21:00 Seg Neutrophils # 6.0 K/mm3 (1.8-7.7) 06/19/19 21:00 PT 14.5 Sec. (12.2-14.9) 06/19/19 21:54 INR 1.16 (0.87-1.13) H 06/19/19 21:54 APTT 24.4 Sec. (24.2-36.6) 06/19/19 21:54 491.40 ng/mlDDU (0-234) H 06/19/19 15:50 Heparin Anti-Xa Level < 0.10 U.I./ml (0.3-0.7) L 06/20/19 08:05 Sodium 135 mmol/L (137-145) L 06/19/19 21:00 Potassium 3.8 mmol/L (3.6-5.0) 06/19/19 21:00 Chloride 96.4 mmol/L (98-107) L 06/19/19 21:00 Carbon Dioxide 26 mmol/L (22-30) 06/19/19 21:00 16 mmol/L 06/19/19 21:00 BUN 16 mg/dL (9-20) 06/19/19 21:00 1.2 mg/dL (0.8-1.5) 06/19/19 21:00 Estimated GFR > 60 ml/min 06/19/19 21:00 13 % 06/19/19 21:00 Glucose 105 mg/dL (75-100) H 06/19/19 21:00 Calcium 8.5 mg/dL (8.4-10.2) 06/19/19 21:00 Magnesium 1.70 mg/dL (1.7-2.3) 06/19/19 17:00 0.50 mg/dL (0.1-1.2) 06/19/19 15:50 AST 27 units/L (5-40) 06/19/19 15:50 ALT 22 units/L (7-56) 06/19/19 15:50 116 units/L (35-129) 06/19/19 15:50 175 units/L (55-170) H 06/19/19 15:50 0.066 ng/mL (0.00-0.029) H 06/20/19 05:00 NT-Pro-B Natriuret Pep 342.2 pg/mL (0-900) 06/19/19 15:50 9.0 g/dL (6.3-8.2) H 06/19/19 15:50 3.5 g/dL (3.9-5) L 06/19/19 15:50 0.6 % 06/19/19 15:50 Triglycerides 119 mg/dL (2-149) 06/19/19 15:50 Cholesterol 118 mg/dL (50-199) 06/19/19 15:50 85 mg/dL (50-130) 06/19/19 15:50 28 mg/dL (40-59) L 06/19/19 15:50 4.21 % 06/19/19 15:50 TSH 13.750 mlU/mL (0.270-4.200) H 06/19/19 15:50 Free T4 0.22 ng/dL (0.76-1.46) L 06/20/19 14:48 1.9 ug/dL (4.0-12.0) L 06/20/19 14:48 Yellow (Yellow) 06/19/19 18:10 Slightly-cloudy (Clear) 06/19/19 18:10 5.0 (5.0-7.0) 06/19/19 18:10 Ur Specific [place] 1.015 (1.003-1.030) 06/19/19 18:10 30 mg/dl mg/dL (Negative) 06/19/19 18:10 Neg mg/dL (Negative) 06/19/19 18:10 Neg mg/dL (Negative) 06/19/19 18:10 Lg (Negative) 06/19/19 18:10 Neg (Negative) 06/19/19 18:10 Neg (Negative) 06/19/19 18:10 < 2.0 mg/dL (<2.0) 06/19/19 18:10 Ur Leukocyte Esterase Neg (Negative) 06/19/19 18:10 6.0 /HPF (0.0-6.0) 06/19/19 18:10 15.0 /HPF (0.0-6.0) 06/19/19 18:10 1+ /HPF (Negative) 06/19/19 18:10 Salicylates < 0.3 mg/dL (2.8-20.0) L 06/19/19 15:50 Presumptive negative 06/19/19 18:10 Presumptive negative 06/19/19 18:10 Acetaminophen < 5.0 ug/mL (10.0-30.0) L 06/19/19 15:50 Ur Barbiturates Screen Presumptive negative 06/19/19 18:10 Ur Phencyclidine Scrn Presumptive negative 06/19/19 18:10 Ur Amphetamines Screen Presumptive negative 06/19/19 18:10 U Benzodiazepines Scrn Presumptive positive 06/19/19 18:10 Presumptive negative 06/19/19 18:10 U Marijuana (THC) Screen Presumptive negative 06/19/19 18:10 Disclamer 06/19/19 18:10 Plasma/Serum Alcohol < 0.01 % (0-0.07) 06/19/19 15:50 Active Medications - Current Medications Current Medications: Generic Name Dose Route Start Last Admin Trade Name Freq PRN Reason Stop Dose Admin Acetaminophen 650 mg 06/19/19 20:27 Tylenol PO Q4H PRN Pain MILD(1-3)/Fever >100.5/PRAJAPATI Aspirin 325 mg 06/20/19 10:00 06/21/19 10:43 Ecotrin PO 325 mg QDAY JESSICA Administration Atorvastatin Calcium 40 mg 06/19/19 22:00 06/20/19 22:16 Lipitor PO 40 mg QHS JESSICA Administration Buspirone HCl 7.5 mg 06/21/19 13:00 Buspar PO BID JESSICA Enoxaparin Sodium 40 mg 06/20/19 10:00 06/21/19 10:43 Lovenox SUB-Q 40 mg QDAY JESS[facility] Administration Famotidine 20 mg 06/21/19 22:00 Pepcid PO BID JESSICA Folic Acid 1 mg 06/20/19 12:00 06/21/19 10:44 Folvite PO 1 mg QDAY JESSICA Administration Furosemide 40 mg 06/19/19 22:00 06/21/19 10:44 Lasix IV 06/21/19 21:59 40 mg Q12HR JESSICA Administration Lorazepam 2 mg 06/19/19 21:18 06/21/19 06:23 Ativan IV 2 mg Q1H PRN Administration CIWA-Ar 8-15 Lorazepam 4 mg 06/19/19 21:18 Ativan IV Q1H PRN CIWA-Ar 16-25 Lorazepam 4 mg 06/19/19 21:18 Ativan IV Q15MIN PRN CIWA-Ar >25 Magnesium Hydroxide 30 ml 06/19/19 20:27 Milk Of Magnesia PO Q4H PRN Constipation Ondansetron HCl 4 mg 06/19/19 20:27 Zofran IV Q8H PRN Nausea And Vomiting Oxycodone/Acetaminophen 1 tab 06/19/19 20:27 06/21/19 06:22 Percocet 5/325 PO 1 tab Q6H PRN Administration Pain, Moderate (4-6) Sertraline HCl 50 mg 06/21/19 13:00 Zoloft PO QDAY JESSICA Sodium Chloride 10 ml 06/19/19 22:00 06/20/19 22:31 Sodium Chloride Flush Syringe 10 Ml IV 10 ml BID JESSICA Administration Sodium Chloride 10 ml 06/19/19 20:27 Sodium Chloride Flush Syringe 10 Ml IV PRN PRN LINE FLUSH Thiamine HCl 100 mg 06/20/19 12:00 06/21/19 10:44 Vitamin B-1 PO 100 mg QDAY JESSICA Administration
[2019-06-21] MEDS: ZOLOFT PO SCH (12:54)
[2019-06-21] MEDS: SODIUM CHLORIDE FLUSH SYRINGE 10 ML IV SCH ×2 (12:55→21:33)
[2019-06-21] MEDS: BUSPAR PO SCH ×2 (14:31→21:30)
[2019-06-21] MEDS: PEPCID PO SCH (21:31)
[2019-06-21] MEDS ORDERED: ANTIVERT PO PRN (23:11)
[2019-06-21] MEDS ORDERED: NORVASC PO ONE (23:42)
[2019-06-22] MEDS: ATIVAN IV PRN ×2 (02:35→22:50)
[2019-06-22] MEDS ORDERED: NORVASC PO ONE (03:08)
[2019-06-22] MEDS ORDERED: SYNTHROID PO SCH (06:00)
[2019-06-22] MEDS: SYNTHROID PO SCH (06:26)
[2019-06-22] MEDS: XANAX PO PRN ×2 (06:26→18:40)
[2019-06-22] MEDS: ECOTRIN PO SCH (09:43)
[2019-06-22] MEDS: PEPCID PO SCH ×2 (09:44→22:49)
[2019-06-22] MEDS: NORVASC PO SCH (09:44)
[2019-06-22] MEDS: BUSPAR PO SCH ×2 (09:45→22:48)
[2019-06-22] MEDS: FOLVITE PO SCH (09:45)
[2019-06-22] MEDS: ZOLOFT PO SCH (09:45)
[2019-06-22] MEDS: LOVENOX SUB-Q SCH (09:46)
[2019-06-22] MEDS: SODIUM CHLORIDE FLUSH SYRINGE 10 ML IV SCH ×2 (09:55→22:50)
[2019-06-22] MEDS: VITAMIN B-1 PO SCH (09:55)
[2019-06-22] MEDS ORDERED: PAXIL PO SCH (10:00)
[2019-06-22] MEDS ORDERED: FOLVITE PO SCH (10:00)
--- NOTE | 2019-06-22 14:05 | Progress Note ---
Subjective - Reason for Consult Consult date: 06/22/19 Reason for consult: Psychiatric Follow-up Evaluation - Chief Complaint Chief complaint: "I feel about the same" Patient is a 48-year-old white male who presented to the hospital for SOB and chest pain. Psychiatry was consulted to see the patient for SI's and Etoh Abuse. Today the patient is cooperative but anxious during the assessment. He stated that he has a hx of alcoholism/depression/anxiety. He reports decrease sleep and appetite. Patient rates depression 8/10, with 10 being the worse. Endorses SI's without a plan and intermittent AH's " whistling" . He denies HI's, VH's, and delusions. Reports medication compliance. No side effects noted/reported. Mental Status Exam - Vital signs Last Vital Signs Temp 97.5 F L 06/22/19 12:09 Pulse 73 06/22/19 12:09 Resp 20 06/22/19 12:09 BP 124/92 06/22/19 12:09 Pulse Ox 93 06/22/19 12:09 - Exam Narrative exam: Mental Status Exam Appearance: cooperative Behavior: regular eye contact Speech: slow rate and regular tone Mood: "depressed" Affect: flat Thought Process: circumstantial Thought Content: denies HI's, VH's, delusions; + SI's and AH's Motor Activity: lying in bed Cognition: A/O x 3 Insight: variable Judgment: poor Assessment and Plan Impression: MDD, Severe Type. Unspecified Anxiety DO. Today the patient is cooperative but anxious during the assessment. DDx: Bipolar DO, Alcohol Use DO Recommendations/Plan: 1. Continue 1013. 2. Continue Zoloft 50 mg PO daily for depression/anxiety and Buspar 7.5 mg PO BID for anxiety. Discussed possible sucidality/medication induced warren with the patient reference Zoloft, he verbalized understanding. Disposition: The patient will be referred to inpatient psychiatric services when medically clear. Will staff with Dr. Douglas Martinez.
[2019-06-22] MEDS: PERCOCET 5/325 PO PRN (16:21)
--- NOTE | 2019-06-22 22:43 | Progress Note ---
Assessment and Plan Assessment and plan: Patient is a 48-year-old man with a history of bipolar disoder, MDD, alcohol and tobacco abuse who presents to the hospital with chest pain or shortness of breath, complaining of swollen left leg and rash on his legs. He also reports suicidal ideation * Chest x-ray; atelectasis in the bases * CT head; no acute findings duplex scan of lower extremities; no DVT in either extremity * CT angiogram chest ; Negative for PE, no acute findings Chest pain Cardiology consulted, atypical, suspected psychosomatic Hypertensive urgency Optimize blood pressure medications Bilateral lower extremity edema/venous stasis of lower extremities Diuretics, echo pending, Dopplers negative for DVT History and physical states that patient has vasculitis; there is no evidence of vasculitis, only venous stasis Suicidal ideation/major depression On 1013, mental health consult I called [facility] Jesus because they signed off, which I believe pt needs continuous care possible inpatient psych placement Alcohol dependence Preventative health counseling performed 17 minutes spent CIWA protocol, folate and thiamine Hypothyroidism TSH severely elevated, obtain T4 free T4. Hypothyroidism may be a contribution factor to his depression start levothyroxine 50mcg/d DVT ppx; lovenox Disposition: continue inpatient care, possible inpatient psych placement or stabilize mental health and psych remove 1013 History Interval history: Patient was seen and examined. Follow-up on current diagnosis. No overnight events reported to me. Patient denies any chest pain, shortness breath, nausea/vomiting or severe headaches. Imaging, nursing note, chart, labs and old chart reviewed. Discussed with patient. Hospitalist Physical - Physical exam Narrative exam: Gen: WDWN, NAD, Awake, Alert, Orientated HEENT: NCAT, EOMI, PERRL, OP Clear Neck: supple, no adenopathy, no thyromegaly, no JVD CVS/Heart: RRR, normal S1S2, pulses present bilaterally Chest/Lungs: CTA B, Symmetrical chest expansion, good air entry bilaterally GI/Abdomen: soft, NTND, good bowel sounds, no guarding or rebound /Bladder: no suprapubic tenderness, no CVA or paraspinal tenderness Extermity/Skin: no c/c/e, no obvious rash MSK: FROM x 4 Neuro: CN 2-12 grossly intact, no new focal deficits Psych: calm - Constitutional Vitals: Temp Pulse Resp BP Pulse Ox 98.0 F 56 L 20 120/70 94 06/22/19 16:13 06/22/19 20:04 06/22/19 20:04 06/22/19 20:04 06/22/19 20:04 General appearance: Present: no acute distress Results - Labs CBC & Chem 7: 06/19/19 21:54 06/19/19 21:00 Labs: Laboratory Last Values WBC 8.5 K/mm3 (4.5-11.0) 06/19/19 21:00 RBC 3.18 M/mm3 (3.65-5.03) L 06/19/19 21:00 Hgb 11.3 gm/dl (11.8-15.2) L 06/19/19 21:54 Hct 33.3 % (35.5-45.6) L 06/19/19 21:54 MCV 102 fl (84-94) H 06/19/19 21:00 MCH 35 pg (28-32) H 06/19/19 21:00 MCHC 34 % (32-34) 06/19/19 21:00 RDW 17.9 % (13.2-15.2) H 06/19/19 21:00 Plt Count 371 K/mm3 (140-440) 06/19/19 21:54 Lymph % (Auto) 18.7 % (13.4-35.0) 06/19/19 21:00 [place] % (Auto) 9.8 % (0.0-7.3) H 06/19/19 21:00 Eos % (Auto) 0.3 % (0.0-4.3) 06/19/19 21:00 Baso % (Auto) 0.7 % (0.0-1.8) 06/19/19 21:00 Lymph # 1.6 K/mm3 (1.2-5.4) 06/19/19 21:00 [place] # 0.8 K/mm3 (0.0-0.8) 06/19/19 21:00 Eos # 0.0 K/mm3 (0.0-0.4) 06/19/19 21:00 Baso # 0.1 K/mm3 (0.0-0.1) 06/19/19 21:00 Seg Neutrophils % 70.5 % (40.0-70.0) H 06/19/19 21:00 Seg Neutrophils # 6.0 K/mm3 (1.8-7.7) 06/19/19 21:00 PT 14.5 Sec. (12.2-14.9) 06/19/19 21:54 INR 1.16 (0.87-1.13) H 06/19/19 21:54 APTT 24.4 Sec. (24.2-36.6) 06/19/19 21:54 491.40 ng/mlDDU (0-234) H 06/19/19 15:50 Heparin Anti-Xa Level < 0.10 U.I./ml (0.3-0.7) L 06/20/19 08:05 Sodium 135 mmol/L (137-145) L 06/19/19 21:00 Potassium 3.8 mmol/L (3.6-5.0) 06/19/19 21:00 Chloride 96.4 mmol/L (98-107) L 06/19/19 21:00 Carbon Dioxide 26 mmol/L (22-30) 06/19/19 21:00 16 mmol/L 06/19/19 21:00 BUN 16 mg/dL (9-20) 06/19/19 21:00 1.2 mg/dL (0.8-1.5) 06/19/19 21:00 Estimated GFR > 60 ml/min 06/19/19 21:00 13 % 06/19/19 21:00 Glucose 105 mg/dL (75-100) H 06/19/19 21:00 Calcium 8.5 mg/dL (8.4-10.2) 06/19/19 21:00 Magnesium 1.70 mg/dL (1.7-2.3) 06/19/19 17:00 0.50 mg/dL (0.1-1.2) 06/19/19 15:50 AST 27 units/L (5-40) 06/19/19 15:50 ALT 22 units/L (7-56) 06/19/19 15:50 116 units/L (35-129) 06/19/19 15:50 175 units/L (55-170) H 06/19/19 15:50 0.066 ng/mL (0.00-0.029) H 06/20/19 05:00 NT-Pro-B Natriuret Pep 342.2 pg/mL (0-900) 06/19/19 15:50 9.0 g/dL (6.3-8.2) H 06/19/19 15:50 3.5 g/dL (3.9-5) L 06/19/19 15:50 0.6 % 06/19/19 15:50 Triglycerides 119 mg/dL (2-149) 06/19/19 15:50 Cholesterol 118 mg/dL (50-199) 06/19/19 15:50 85 mg/dL (50-130) 06/19/19 15:50 28 mg/dL (40-59) L 06/19/19 15:50 4.21 % 06/19/19 15:50 TSH 13.750 mlU/mL (0.270-4.200) H 06/19/19 15:50 Free T4 0.22 ng/dL (0.76-1.46) L 06/20/19 14:48 1.9 ug/dL (4.0-12.0) L 06/20/19 14:48 Yellow (Yellow) 06/19/19 18:10 Slightly-cloudy (Clear) 06/19/19 18:10 5.0 (5.0-7.0) 06/19/19 18:10 Ur Specific [place] 1.015 (1.003-1.030) 06/19/19 18:10 30 mg/dl mg/dL (Negative) 06/19/19 18:10 Neg mg/dL (Negative) 06/19/19 18:10 Neg mg/dL (Negative) 06/19/19 18:10 Lg (Negative) 06/19/19 18:10 Neg (Negative) 06/19/19 18:10 Neg (Negative) 06/19/19 18:10 < 2.0 mg/dL (<2.0) 06/19/19 18:10 Ur Leukocyte Esterase Neg (Negative) 06/19/19 18:10 6.0 /HPF (0.0-6.0) 06/19/19 18:10 15.0 /HPF (0.0-6.0) 06/19/19 18:10 1+ /HPF (Negative) 06/19/19 18:10 Salicylates < 0.3 mg/dL (2.8-20.0) L 06/19/19 15:50 Presumptive negative 06/19/19 18:10 Presumptive negative 06/19/19 18:10 Acetaminophen < 5.0 ug/mL (10.0-30.0) L 06/19/19 15:50 Ur Barbiturates Screen Presumptive negative 06/19/19 18:10 Ur Phencyclidine Scrn Presumptive negative 06/19/19 18:10 Ur Amphetamines Screen Presumptive negative 06/19/19 18:10 U Benzodiazepines Scrn Presumptive positive 06/19/19 18:10 Presumptive negative 06/19/19 18:10 U Marijuana (THC) Screen Presumptive negative 06/19/19 18:10 Disclamer 06/19/19 18:10 Plasma/Serum Alcohol < 0.01 % (0-0.07) 06/19/19 15:50 Active Medications - Current Medications Current Medications: Generic Name Dose Route Start Last Admin Trade Name Freq PRN Reason Stop Dose Admin Acetaminophen 650 mg 06/19/19 20:27 Tylenol PO Q4H PRN Pain MILD(1-3)/Fever >100.5/PRAJAPATI Alprazolam 0.5 mg 06/21/19 23:11 06/22/19 18:40 Xanax PO 0.5 mg BID PRN Administration Anxiety Amlodipine Besylate 10 mg 06/22/19 10:00 06/22/19 09:44 Norvasc PO 10 mg DAILY JESSICA Administration Aspirin 325 mg 06/20/19 10:00 06/22/19 09:43 Ecotrin PO 325 mg QDAY JESSICA Administration Atorvastatin Calcium 40 mg 06/19/19 22:00 06/21/19 21:32 Lipitor PO 40 mg QHS JESSICA Administration Buspirone HCl 7.5 mg 06/21/19 13:00 06/22/19 09:45 Buspar PO 7.5 mg BID JESSICA Administration Enoxaparin Sodium 40 mg 06/20/19 10:00 06/22/19 09:46 Lovenox SUB-Q 40 mg QDAY JESSICA Administration Famotidine 20 mg 06/21/19 22:00 06/22/19 09:44 Pepcid PO 20 mg BID JESSICA Administration Folic Acid 1 mg 06/20/19 12:00 06/22/19 09:45 Folvite PO 1 mg QDAY JESSICA Administration Levothyroxine Sodium 75 mcg 06/22/19 06:00 06/22/19 06:26 Synthroid PO 75 mcg QAM@0600 JESSICA Administration Lorazepam 2 mg 06/19/19 21:18 06/22/19 02:35 Ativan IV 2 mg Q1H PRN Administration CIWA-Ar 8-15 Lorazepam 4 mg 06/19/19 21:18 Ativan IV Q1H PRN CIWA-Ar 16-25 Lorazepam 4 mg 06/19/19 21:18 Ativan IV Q15MIN PRN CIWA-Ar >25 Meclizine HCl 25 mg 06/21/19 23:11 Antivert PO TID PRN Vertigo Ondansetron HCl 4 mg 06/19/19 20:27 Zofran IV Q8H PRN Nausea And Vomiting Oxycodone/Acetaminophen 1 tab 06/19/19 20:27 06/22/19 16:21 Percocet 5/325 PO 1 tab Q6H PRN Administration Pain, Moderate (4-6) Sertraline HCl 50 mg 06/21/19 13:00 06/22/19 09:45 Zoloft PO 50 mg QDAY JESSICA Administration Sodium Chloride 10 ml 06/19/19 22:00 06/22/19 09:55 Sodium Chloride Flush Syringe 10 Ml IV 10 ml BID JESSICA Administration Sodium Chloride 10 ml 06/19/19 20:27 Sodium Chloride Flush Syringe 10 Ml IV PRN PRN LINE FLUSH Thiamine HCl 100 mg 06/20/19 12:00 06/22/19 09:55 Vitamin B-1 PO 100 mg QDAY JESSICA Administration
[2019-06-23] MEDS: ATIVAN IV PRN ×2 (06:14→17:34)
[2019-06-23] MEDS: SYNTHROID PO SCH (06:14)
[2019-06-23] MEDS: ECOTRIN PO SCH (09:32)
[2019-06-23] MEDS: BUSPAR PO SCH ×2 (09:32→22:33)
[2019-06-23] MEDS: PERCOCET 5/325 PO PRN ×2 (09:32→17:34)
[2019-06-23] MEDS: ZOLOFT PO SCH (09:32)
[2019-06-23] MEDS: XANAX PO PRN ×2 (09:32→20:07)
[2019-06-23] MEDS: LOVENOX SUB-Q SCH (09:33)
[2019-06-23] MEDS: PEPCID PO SCH ×2 (09:33→22:33)
[2019-06-23] MEDS: NORVASC PO SCH (09:33)
[2019-06-23] MEDS: FOLVITE PO SCH (09:33)
[2019-06-23] MEDS: SODIUM CHLORIDE FLUSH SYRINGE 10 ML IV SCH ×2 (09:34→22:33)
[2019-06-23] MEDS: VITAMIN B-1 PO SCH (09:34)
--- NOTE | 2019-06-23 10:52 | Progress Note ---
Subjective - Reason for Consult Consult date: 06/23/19 Reason for consult: Psychiatry Follow-up - Chief Complaint Chief complaint: "Nothing has changed" Patient is a 48-year-old white male who presented to the hospital for SOB and chest pain. Psychiatry was consulted to see the patient for SI's and Etoh Abuse. Today the patient was calm and cooperative during the assessment. He stated that he still feel the same mentally and would attempt to shoot himself if he had the chance. He could not state why he feel "depressed" when asked. He is adamant that his life is "worthless." He denies HI's and AVH's. He denies any side effects from his medications. Mental Status Exam - Vital signs Last Vital Signs Temp 97.6 F 06/23/19 04:16 Pulse 64 06/23/19 04:16 Resp 16 06/23/19 09:32 BP 131/62 06/23/19 04:16 Pulse Ox 94 06/23/19 04:16 - Exam Narrative exam: MSE: Appearance: calm, cooperative Behavior: regular eye contact Speech: regular rate and tone Mood: "depressed" Affect: flat Thought Process: circumstantial Thought Content: denies HI's and AVH's Motor Activity: lying in bed Cognition: A/O x 3 Insight: variable Judgment: poor Assessment and Plan Impression: MDD, Severe Type. Unspecified Anxiety DO. Today the patient was calm and cooperative during the assessment. DDx: Bipolar DO, Alcohol Use DO Recommendations/Plan: Continue 1013 and Zoloft 50 mg PO daily for depression/anxiety and Buspar 7.5 mg PO BID for anxiety. Discussed possible sucidality/medication induced warren with the patient reference Zoloft, he verbalized understanding. Dispo: The patient will be referred to inpatient psy services when medically clear. Will staff with Dr Douglas Martinez.
--- NOTE | 2019-06-23 17:17 | Progress Note ---
Assessment and Plan Assessment and plan: Patient is a 48-year-old man with a history of bipolar disoder, MDD, alcohol and tobacco abuse who presents to the hospital with chest pain or shortness of breath, complaining of swollen left leg and rash on his legs. He also reports suicidal ideation * Chest x-ray; atelectasis in the bases * CT head; no acute findings duplex scan of lower extremities; no DVT in either extremity * CT angiogram chest ; Negative for PE, no acute findings Chest pain Cardiology consulted, atypical, suspected psychosomatic Hypertensive urgency Optimize blood pressure medications Bilateral lower extremity edema/venous stasis of lower extremities Diuretics, echo pending, Dopplers negative for DVT History and physical states that patient has vasculitis; there is no evidence of vasculitis, only venous stasis Suicidal ideation/major depression On 1013, mental health consult I called [employer] Jesus because they signed off, which I believe pt needs continuous care possible inpatient psych placement Alcohol dependence Preventative health counseling performed 17 minutes spent CIWA protocol, folate and thiamine Hypothyroidism TSH severely elevated, obtain T4 free T4. Hypothyroidism may be a contribution factor to his depression start levothyroxine 50mcg/d DVT ppx; lovenox Disposition: continue inpatient care, possible inpatient psych placement or stabilize mental health and psych remove 1013 still under suicide watch History Interval history: Patient was seen and examined. Follow-up on current diagnosis. No overnight events reported to me. Patient denies any chest pain, shortness breath, nausea/vomiting or severe headaches. Imaging, nursing note, chart, labs and old chart reviewed. Discussed with patient. Hospitalist Physical - Physical exam Narrative exam: Gen: WDWN, NAD, Awake, Alert, Orientated HEENT: NCAT, EOMI, PERRL, OP Clear Neck: supple, no adenopathy, no thyromegaly, no JVD CVS/Heart: RRR, normal S1S2, pulses present bilaterally Chest/Lungs: CTA B, Symmetrical chest expansion, good air entry bilaterally GI/Abdomen: soft, NTND, good bowel sounds, no guarding or rebound /Bladder: no suprapubic tenderness, no CVA or paraspinal tenderness Extermity/Skin: no c/c/e, no obvious rash MSK: FROM x 4 Neuro: CN 2-12 grossly intact, no new focal deficits Psych: calm - Constitutional Vitals: Temp Pulse Resp BP Pulse Ox 98.1 F 62 18 144/95 90 06/23/19 15:24 06/23/19 15:24 06/23/19 15:24 06/23/19 15:24 06/23/19 15:24 General appearance: Present: no acute distress Results - Labs CBC & Chem 7: 06/19/19 21:54 06/19/19 21:00 Labs: Laboratory Last Values WBC 8.5 K/mm3 (4.5-11.0) 06/19/19 21:00 RBC 3.18 M/mm3 (3.65-5.03) L 06/19/19 21:00 Hgb 11.3 gm/dl (11.8-15.2) L 06/19/19 21:54 Hct 33.3 % (35.5-45.6) L 06/19/19 21:54 MCV 102 fl (84-94) H 06/19/19 21:00 MCH 35 pg (28-32) H 06/19/19 21:00 MCHC 34 % (32-34) 06/19/19 21:00 RDW 17.9 % (13.2-15.2) H 06/19/19 21:00 Plt Count 371 K/mm3 (140-440) 06/19/19 21:54 Lymph % (Auto) 18.7 % (13.4-35.0) 06/19/19 21:00 [place] % (Auto) 9.8 % (0.0-7.3) H 06/19/19 21:00 Eos % (Auto) 0.3 % (0.0-4.3) 06/19/19 21:00 Baso % (Auto) 0.7 % (0.0-1.8) 06/19/19 21:00 Lymph # 1.6 K/mm3 (1.2-5.4) 06/19/19 21:00 [place] # 0.8 K/mm3 (0.0-0.8) 06/19/19 21:00 Eos # 0.0 K/mm3 (0.0-0.4) 06/19/19 21:00 Baso # 0.1 K/mm3 (0.0-0.1) 06/19/19 21:00 Seg Neutrophils % 70.5 % (40.0-70.0) H 06/19/19 21:00 Seg Neutrophils # 6.0 K/mm3 (1.8-7.7) 06/19/19 21:00 PT 14.5 Sec. (12.2-14.9) 06/19/19 21:54 INR 1.16 (0.87-1.13) H 06/19/19 21:54 APTT 24.4 Sec. (24.2-36.6) 06/19/19 21:54 491.40 ng/mlDDU (0-234) H 06/19/19 15:50 Heparin Anti-Xa Level < 0.10 U.I./ml (0.3-0.7) L 06/20/19 08:05 Sodium 135 mmol/L (137-145) L 06/19/19 21:00 Potassium 3.8 mmol/L (3.6-5.0) 06/19/19 21:00 Chloride 96.4 mmol/L (98-107) L 06/19/19 21:00 Carbon Dioxide 26 mmol/L (22-30) 06/19/19 21:00 16 mmol/L 06/19/19 21:00 BUN 16 mg/dL (9-20) 06/19/19 21:00 1.2 mg/dL (0.8-1.5) 06/19/19 21:00 Estimated GFR > 60 ml/min 06/19/19 21:00 13 % 06/19/19 21:00 Glucose 105 mg/dL (75-100) H 06/19/19 21:00 Calcium 8.5 mg/dL (8.4-10.2) 06/19/19 21:00 Magnesium 1.70 mg/dL (1.7-2.3) 06/19/19 17:00 0.50 mg/dL (0.1-1.2) 06/19/19 15:50 AST 27 units/L (5-40) 06/19/19 15:50 ALT 22 units/L (7-56) 06/19/19 15:50 116 units/L (35-129) 06/19/19 15:50 175 units/L (55-170) H 06/19/19 15:50 0.066 ng/mL (0.00-0.029) H 06/20/19 05:00 NT-Pro-B Natriuret Pep 342.2 pg/mL (0-900) 06/19/19 15:50 9.0 g/dL (6.3-8.2) H 06/19/19 15:50 3.5 g/dL (3.9-5) L 06/19/19 15:50 0.6 % 06/19/19 15:50 Triglycerides 119 mg/dL (2-149) 06/19/19 15:50 Cholesterol 118 mg/dL (50-199) 06/19/19 15:50 85 mg/dL (50-130) 06/19/19 15:50 28 mg/dL (40-59) L 06/19/19 15:50 4.21 % 06/19/19 15:50 TSH 13.750 mlU/mL (0.270-4.200) H 06/19/19 15:50 Free T4 0.22 ng/dL (0.76-1.46) L 06/20/19 14:48 1.9 ug/dL (4.0-12.0) L 06/20/19 14:48 Yellow (Yellow) 06/19/19 18:10 Slightly-cloudy (Clear) 06/19/19 18:10 5.0 (5.0-7.0) 06/19/19 18:10 Ur Specific [place] 1.015 (1.003-1.030) 06/19/19 18:10 30 mg/dl mg/dL (Negative) 06/19/19 18:10 Neg mg/dL (Negative) 06/19/19 18:10 Neg mg/dL (Negative) 06/19/19 18:10 Lg (Negative) 06/19/19 18:10 Neg (Negative) 06/19/19 18:10 Neg (Negative) 06/19/19 18:10 < 2.0 mg/dL (<2.0) 06/19/19 18:10 Ur Leukocyte Esterase Neg (Negative) 06/19/19 18:10 6.0 /HPF (0.0-6.0) 06/19/19 18:10 15.0 /HPF (0.0-6.0) 06/19/19 18:10 1+ /HPF (Negative) 06/19/19 18:10 Salicylates < 0.3 mg/dL (2.8-20.0) L 06/19/19 15:50 Presumptive negative 06/19/19 18:10 Presumptive negative 06/19/19 18:10 Acetaminophen < 5.0 ug/mL (10.0-30.0) L 06/19/19 15:50 Ur Barbiturates Screen Presumptive negative 06/19/19 18:10 Ur Phencyclidine Scrn Presumptive negative 06/19/19 18:10 Ur Amphetamines Screen Presumptive negative 06/19/19 18:10 U Benzodiazepines Scrn Presumptive positive 06/19/19 18:10 Presumptive negative 06/19/19 18:10 U Marijuana (THC) Screen Presumptive negative 06/19/19 18:10 Disclamer 06/19/19 18:10 Plasma/Serum Alcohol < 0.01 % (0-0.07) 06/19/19 15:50 Active Medications - Current Medications Current Medications: Generic Name Dose Route Start Last Admin Trade Name Freq PRN Reason Stop Dose Admin Acetaminophen 650 mg 06/19/19 20:27 Tylenol PO Q4H PRN Pain MILD(1-3)/Fever >100.5/PRAJAPATI Alprazolam 0.5 mg 06/21/19 23:11 06/23/19 09:32 Xanax PO 0.5 mg BID PRN Administration Anxiety Amlodipine Besylate 10 mg 06/22/19 10:00 06/23/19 09:33 Norvasc PO 10 mg DAILY JESSICA Administration Aspirin 325 mg 06/20/19 10:00 06/23/19 09:32 Ecotrin PO 325 mg QDAY JESSICA Administration Atorvastatin Calcium 40 mg 06/19/19 22:00 06/22/19 22:49 Lipitor PO 40 mg QHS JESSICA Administration Buspirone HCl 7.5 mg 06/21/19 13:00 06/23/19 09:32 Buspar PO 7.5 mg BID JESSICA Administration Enoxaparin Sodium 40 mg 06/20/19 10:00 06/23/19 09:33 Lovenox SUB-Q 40 mg QDAY JESSICA Administration Famotidine 20 mg 06/21/19 22:00 06/23/19 09:33 Pepcid PO 20 mg BID JESSICA Administration Folic Acid 1 mg 06/20/19 12:00 06/23/19 09:33 Folvite PO 1 mg QDAY JESSICA Administration Levothyroxine Sodium 75 mcg 06/22/19 06:00 06/23/19 06:14 Synthroid PO 75 mcg QAM@0600 JESSICA Administration Lorazepam 2 mg 06/19/19 21:18 06/23/19 06:14 Ativan IV 2 mg Q1H PRN Administration CIWA-Ar 8-15 Lorazepam 4 mg 06/19/19 21:18 Ativan IV Q1H PRN CIWA-Ar 16-25 Lorazepam 4 mg 06/19/19 21:18 Ativan IV Q15MIN PRN CIWA-Ar >25 Meclizine HCl 25 mg 06/21/19 23:11 Antivert PO TID PRN Vertigo Ondansetron HCl 4 mg 06/19/19 20:27 Zofran IV Q8H PRN Nausea And Vomiting Oxycodone/Acetaminophen 1 tab 06/19/19 20:27 06/23/19 09:32 Percocet 5/325 PO 1 tab Q6H PRN Administration Pain, Moderate (4-6) Sertraline HCl 50 mg 06/21/19 13:00 06/23/19 09:32 Zoloft PO 50 mg QDAY JESSICA Administration Sodium Chloride 10 ml 06/19/19 22:00 06/23/19 09:34 Sodium Chloride Flush Syringe 10 Ml IV 10 ml BID JESSICA Administration Sodium Chloride 10 ml 06/19/19 20:27 Sodium Chloride Flush Syringe 10 Ml IV PRN PRN LINE FLUSH Thiamine HCl 100 mg 06/20/19 12:00 06/23/19 09:34 Vitamin B-1 PO 100 mg QDAY JESSICA Administration
[2019-06-24] MEDS: SYNTHROID PO SCH (06:05)
[2019-06-24] MEDS: PEPCID PO SCH ×2 (10:17→22:00)
[2019-06-24] MEDS: LOVENOX SUB-Q SCH (10:18)
[2019-06-24] MEDS: NORVASC PO SCH (10:18)
[2019-06-24] MEDS: FOLVITE PO SCH (10:19)
[2019-06-24] MEDS: ZOLOFT PO SCH (10:19)
[2019-06-24] MEDS: BUSPAR PO SCH ×2 (10:19→22:00)
[2019-06-24] MEDS: VITAMIN B-1 PO SCH (10:19)
[2019-06-24] MEDS: SODIUM CHLORIDE FLUSH SYRINGE 10 ML IV SCH ×2 (10:20→22:01)
[2019-06-24] MEDS: ECOTRIN PO SCH (10:35)
--- NOTE | 2019-06-24 12:29 | Progress Note ---
Subjective - Reason for Consult Consult date: 06/24/19 Reason for consult: Psychiatry Follow-up - Chief Complaint Chief complaint: "I don;t know why I'm so depressed" Patient is a 48-year-old white male who presented to the hospital for SOB and chest pain. Psychiatry was consulted to see the patient for SI's and Etoh Abuse. Today the patient was calm and cooperative during the assessment. He is adamant that he will need inpatient psy services. He continue to endorse SI's. He would not confirm or deny a suicide plan when asked. He rate his depression 7/10, with 10 being the worse. He denies HI's and AVH's. He denies any side effects from his medications. Mental Status Exam - Vital signs Last Vital Signs Temp 97.9 F 06/24/19 07:09 Pulse 60 06/24/19 10:18 Resp 18 06/24/19 09:00 BP 132/68 06/24/19 10:18 Pulse Ox 96 06/24/19 07:09 - Exam Narrative exam: MSE: Appearance: calm, cooperative Behavior: regular eye contact Speech: regular rate and tone Mood: "not well" Affect: congruent t to mood Thought Process: circumstantial Thought Content: denies HI's and AVH's Motor Activity: lying in bed Cognition: A/O x 3 Insight: variable Judgment: poor Assessment and Plan Impression: MDD, Severe Type. Unspecified Anxiety DO. Today the patient was calm and cooperative during the assessment. DDx: Bipolar DO, Alcohol Use DO Recommendations/Plan: Continue 1013 and Zoloft 50 mg PO daily for depression/anxiety and Buspar 7.5 mg PO BID for anxiety. Discussed possible sucidality/medication induced warren with the patient reference Zoloft, he verbalized understanding. Dispo: The patient will be referred to inpatient psy services when medically clear. Will staff with Dr Douglas Martinez.
[2019-06-24] MEDS: XANAX PO PRN (15:31)
--- NOTE | 2019-06-24 17:26 | Progress Note ---
Assessment and Plan Assessment and plan: Patient is a 48-year-old man with a history of bipolar disoder, MDD, alcohol and tobacco abuse who presents to the hospital with chest pain or shortness of breath, complaining of swollen left leg and rash on his legs. He also reports suicidal ideation * Chest x-ray; atelectasis in the bases * CT head; no acute findings duplex scan of lower extremities; no DVT in either extremity * CT angiogram chest ; Negative for PE, no acute findings Chest pain Cardiology consulted, atypical, suspected psychosomatic Hypertensive urgency Optimize blood pressure medications Bilateral lower extremity edema/venous stasis of lower extremities Diuretics, echo pending, Dopplers negative for DVT History and physical states that patient has vasculitis; there is no evidence of vasculitis, only venous stasis Suicidal ideation/major depression On 1013, mental health consult I called [facility] because they signed off, which I believe pt needs continuous care possible inpatient psych placement Alcohol dependence Preventative health counseling performed 17 minutes spent CIWA protocol, folate and thiamine Hypothyroidism TSH severely elevated, obtain T4 free T4. Hypothyroidism may be a contribution factor to his depression start levothyroxine 50mcg/d DVT ppx; lovenox Disposition: continue inpatient care, possible inpatient psych placement or stabilize mental health and psych remove 1013 still under suicide watch History Interval history: Patient was seen and examined. Follow-up on current diagnosis. No overnight events reported to me. Patient denies any chest pain, shortness breath, nausea/vomiting or severe headaches. Imaging, nursing note, chart, labs and old chart reviewed. Discussed with patient. Hospitalist Physical - Physical exam Narrative exam: Gen: WDWN, NAD, Awake, Alert, Orientated HEENT: NCAT, EOMI, PERRL, OP Clear Neck: supple, no adenopathy, no thyromegaly, no JVD CVS/Heart: RRR, normal S1S2, pulses present bilaterally Chest/Lungs: CTA B, Symmetrical chest expansion, good air entry bilaterally GI/Abdomen: soft, NTND, good bowel sounds, no guarding or rebound /Bladder: no suprapubic tenderness, no CVA or paraspinal tenderness Extermity/Skin: no c/c/e, no obvious rash MSK: FROM x 4 Neuro: CN 2-12 grossly intact, no new focal deficits Psych: calm - Constitutional Vitals: Temp Pulse Resp BP Pulse Ox 98.1 F 59 L 20 135/85 96 06/24/19 16:09 06/24/19 16:09 06/24/19 16:09 06/24/19 16:09 06/24/19 16:09 General appearance: Present: no acute distress Results - Labs CBC & Chem 7: 06/19/19 21:54 06/19/19 21:00 Labs: Laboratory Last Values WBC 8.5 K/mm3 (4.5-11.0) 06/19/19 21:00 RBC 3.18 M/mm3 (3.65-5.03) L 06/19/19 21:00 Hgb 11.3 gm/dl (11.8-15.2) L 06/19/19 21:54 Hct 33.3 % (35.5-45.6) L 06/19/19 21:54 MCV 102 fl (84-94) H 06/19/19 21:00 MCH 35 pg (28-32) H 06/19/19 21:00 MCHC 34 % (32-34) 06/19/19 21:00 RDW 17.9 % (13.2-15.2) H 06/19/19 21:00 Plt Count 371 K/mm3 (140-440) 06/19/19 21:54 Lymph % (Auto) 18.7 % (13.4-35.0) 06/19/19 21:00 [place] % (Auto) 9.8 % (0.0-7.3) H 06/19/19 21:00 Eos % (Auto) 0.3 % (0.0-4.3) 06/19/19 21:00 Baso % (Auto) 0.7 % (0.0-1.8) 06/19/19 21:00 Lymph # 1.6 K/mm3 (1.2-5.4) 06/19/19 21:00 [place] # 0.8 K/mm3 (0.0-0.8) 06/19/19 21:00 Eos # 0.0 K/mm3 (0.0-0.4) 06/19/19 21:00 Baso # 0.1 K/mm3 (0.0-0.1) 06/19/19 21:00 Seg Neutrophils % 70.5 % (40.0-70.0) H 06/19/19 21:00 Seg Neutrophils # 6.0 K/mm3 (1.8-7.7) 06/19/19 21:00 PT 14.5 Sec. (12.2-14.9) 06/19/19 21:54 INR 1.16 (0.87-1.13) H 06/19/19 21:54 APTT 24.4 Sec. (24.2-36.6) 06/19/19 21:54 491.40 ng/mlDDU (0-234) H 06/19/19 15:50 Heparin Anti-Xa Level < 0.10 U.I./ml (0.3-0.7) L 06/20/19 08:05 Sodium 135 mmol/L (137-145) L 06/19/19 21:00 Potassium 3.8 mmol/L (3.6-5.0) 06/19/19 21:00 Chloride 96.4 mmol/L (98-107) L 06/19/19 21:00 Carbon Dioxide 26 mmol/L (22-30) 06/19/19 21:00 16 mmol/L 06/19/19 21:00 BUN 16 mg/dL (9-20) 06/19/19 21:00 1.2 mg/dL (0.8-1.5) 06/19/19 21:00 Estimated GFR > 60 ml/min 06/19/19 21:00 13 % 06/19/19 21:00 Glucose 105 mg/dL (75-100) H 06/19/19 21:00 Calcium 8.5 mg/dL (8.4-10.2) 06/19/19 21:00 Magnesium 1.70 mg/dL (1.7-2.3) 06/19/19 17:00 0.50 mg/dL (0.1-1.2) 06/19/19 15:50 AST 27 units/L (5-40) 06/19/19 15:50 ALT 22 units/L (7-56) 06/19/19 15:50 116 units/L (35-129) 06/19/19 15:50 175 units/L (55-170) H 06/19/19 15:50 0.066 ng/mL (0.00-0.029) H 06/20/19 05:00 NT-Pro-B Natriuret Pep 342.2 pg/mL (0-900) 06/19/19 15:50 9.0 g/dL (6.3-8.2) H 06/19/19 15:50 3.5 g/dL (3.9-5) L 06/19/19 15:50 0.6 % 06/19/19 15:50 Triglycerides 119 mg/dL (2-149) 06/19/19 15:50 Cholesterol 118 mg/dL (50-199) 06/19/19 15:50 85 mg/dL (50-130) 06/19/19 15:50 28 mg/dL (40-59) L 06/19/19 15:50 4.21 % 06/19/19 15:50 TSH 13.750 mlU/mL (0.270-4.200) H 06/19/19 15:50 Free T4 0.22 ng/dL (0.76-1.46) L 06/20/19 14:48 1.9 ug/dL (4.0-12.0) L 06/20/19 14:48 Yellow (Yellow) 06/19/19 18:10 Slightly-cloudy (Clear) 06/19/19 18:10 5.0 (5.0-7.0) 06/19/19 18:10 Ur Specific [place] 1.015 (1.003-1.030) 06/19/19 18:10 30 mg/dl mg/dL (Negative) 06/19/19 18:10 Neg mg/dL (Negative) 06/19/19 18:10 Neg mg/dL (Negative) 06/19/19 18:10 Lg (Negative) 06/19/19 18:10 Neg (Negative) 06/19/19 18:10 Neg (Negative) 06/19/19 18:10 < 2.0 mg/dL (<2.0) 06/19/19 18:10 Ur Leukocyte Esterase Neg (Negative) 06/19/19 18:10 6.0 /HPF (0.0-6.0) 06/19/19 18:10 15.0 /HPF (0.0-6.0) 06/19/19 18:10 1+ /HPF (Negative) 06/19/19 18:10 Salicylates < 0.3 mg/dL (2.8-20.0) L 06/19/19 15:50 Presumptive negative 06/19/19 18:10 Presumptive negative 06/19/19 18:10 Acetaminophen < 5.0 ug/mL (10.0-30.0) L 06/19/19 15:50 Ur Barbiturates Screen Presumptive negative 06/19/19 18:10 Ur Phencyclidine Scrn Presumptive negative 06/19/19 18:10 Ur Amphetamines Screen Presumptive negative 06/19/19 18:10 U Benzodiazepines Scrn Presumptive positive 06/19/19 18:10 Presumptive negative 06/19/19 18:10 U Marijuana (THC) Screen Presumptive negative 06/19/19 18:10 Disclamer 06/19/19 18:10 Plasma/Serum Alcohol < 0.01 % (0-0.07) 06/19/19 15:50 Active Medications - Current Medications Current Medications: Generic Name Dose Route Start Last Admin Trade Name Freq PRN Reason Stop Dose Admin Acetaminophen 650 mg 06/19/19 20:27 Tylenol PO Q4H PRN Pain MILD(1-3)/Fever >100.5/PRAJAPATI Alprazolam 0.5 mg 06/21/19 23:11 06/24/19 15:31 Xanax PO 0.5 mg BID PRN Administration Anxiety Amlodipine Besylate 10 mg 06/22/19 10:00 06/24/19 10:18 Norvasc PO 10 mg DAILY JESSICA Administration Aspirin 325 mg 06/20/19 10:00 06/24/19 10:35 Ecotrin PO 325 mg QDAY JESSICA Administration Atorvastatin Calcium 40 mg 06/19/19 22:00 06/23/19 22:33 Lipitor PO 40 mg QHS JESSICA Administration Buspirone HCl 7.5 mg 06/21/19 13:00 06/24/19 10:19 Buspar PO 7.5 mg BID JESSICA Administration Enoxaparin Sodium 40 mg 06/20/19 10:00 06/24/19 10:18 Lovenox SUB-Q 40 mg QDAY JESSICA Administration Famotidine 20 mg 06/21/19 22:00 06/24/19 10:17 Pepcid PO 20 mg BID JESSICA Administration Folic Acid 1 mg 06/20/19 12:00 06/24/19 10:19 Folvite PO 1 mg QDAY JESSICA Administration Levothyroxine Sodium 75 mcg 06/22/19 06:00 06/24/19 06:05 Synthroid PO 75 mcg QAM@0600 JESSICA Administration Lorazepam 2 mg 06/19/19 21:18 06/23/19 17:34 Ativan IV 2 mg Q1H PRN Administration CIWA-Ar 8-15 Lorazepam 4 mg 06/19/19 21:18 Ativan IV Q1H PRN CIWA-Ar 16-25 Lorazepam 4 mg 06/19/19 21:18 Ativan IV Q15MIN PRN CIWA-Ar >25 Meclizine HCl 25 mg 06/21/19 23:11 Antivert PO TID PRN Vertigo Ondansetron HCl 4 mg 06/19/19 20:27 Zofran IV Q8H PRN Nausea And Vomiting Oxycodone HCl 10 mg 06/24/19 22:00 Oxycontin PO Q12HR JESSICA Oxycodone/Acetaminophen 1 tab 06/19/19 20:27 06/23/19 17:34 Percocet 5/325 PO 1 tab Q6H PRN Administration Pain, Moderate (4-6) Sertraline HCl 50 mg 06/21/19 13:00 06/24/19 10:19 Zoloft PO 50 mg QDAY JESSICA Administration Sodium Chloride 10 ml 06/19/19 22:00 06/24/19 10:20 Sodium Chloride Flush Syringe 10 Ml IV 10 ml BID JESSICA Administration Sodium Chloride 10 ml 06/19/19 20:27 Sodium Chloride Flush Syringe 10 Ml IV PRN PRN LINE FLUSH Thiamine HCl 100 mg 06/20/19 12:00 06/24/19 10:19 Vitamin B-1 PO 100 mg QDAY JESSICA Administration
[2019-06-24] MEDS: ATIVAN IV PRN (20:21)
[2019-06-24] MEDS: OxyCONTIN PO SCH (22:00)
[2019-06-25] MEDS: SYNTHROID PO SCH (08:09)
[2019-06-25] MEDS: BUSPAR PO SCH ×2 (09:39→21:58)
[2019-06-25] MEDS: LOVENOX SUB-Q SCH (09:39)
[2019-06-25] MEDS: NORVASC PO SCH (09:39)
[2019-06-25] MEDS: ECOTRIN PO SCH (09:39)
[2019-06-25] MEDS: PEPCID PO SCH ×2 (09:39→22:56)
[2019-06-25] MEDS: ZOLOFT PO SCH (09:40)
[2019-06-25] MEDS: FOLVITE PO SCH (09:40)
[2019-06-25] MEDS: VITAMIN B-1 PO SCH (09:40)
[2019-06-25] MEDS: OxyCONTIN PO SCH ×2 (09:40→21:51)
[2019-06-25] MEDS: SODIUM CHLORIDE FLUSH SYRINGE 10 ML IV SCH ×2 (09:40→22:00)
--- NOTE | 2019-06-25 10:23 | Progress Note ---
Assessment and Plan Assessment and plan: Patient is a 48-year-old man with a history of bipolar disoder, MDD, alcohol and tobacco abuse who presents to the hospital with chest pain or shortness of breath, complaining of swollen left leg and rash on his legs. He also reports suicidal ideation * Chest x-ray; atelectasis in the bases * CT head; no acute findings duplex scan of lower extremities; no DVT in either extremity * CT angiogram chest ; Negative for PE, no acute findings Chest pain Cardiology consulted, atypical, suspected psychosomatic Hypertensive urgency Optimize blood pressure medications Bilateral lower extremity edema/venous stasis of lower extremities Diuretics, echo pending, Dopplers negative for DVT History and physical states that patient has vasculitis; there is no evidence of vasculitis, only venous stasis Suicidal ideation/major depression On 1013, mental health consult I called [facility] because they signed off, which I believe pt needs continuous care possible inpatient psych placement Alcohol dependence Preventative health counseling performed 17 minutes spent CIWA protocol, folate and thiamine Hypothyroidism TSH severely elevated, obtain T4 free T4. Hypothyroidism may be a contribution factor to his depression start levothyroxine 50mcg/d DVT ppx; lovenox Disposition: continue inpatient care, just waiting inpatient psych placement still under suicide watch History Interval history: Patient was seen and examined. Follow-up on current diagnosis. No overnight events reported to me. Patient denies any chest pain, shortness breath, nausea/vomiting or severe headaches. Imaging, nursing note, chart, labs and old chart reviewed. Discussed with patient. Hospitalist Physical - Physical exam Narrative exam: Gen: WDWN, NAD, Awake, Alert, Orientated HEENT: NCAT, EOMI, PERRL, OP Clear Neck: supple, no adenopathy, no thyromegaly, no JVD CVS/Heart: RRR, normal S1S2, pulses present bilaterally Chest/Lungs: CTA B, Symmetrical chest expansion, good air entry bilaterally GI/Abdomen: soft, NTND, good bowel sounds, no guarding or rebound /Bladder: no suprapubic tenderness, no CVA or paraspinal tenderness Extermity/Skin: no c/c/e, no obvious rash MSK: FROM x 4 Neuro: CN 2-12 grossly intact, no new focal deficits Psych: calm - Constitutional Vitals: Temp Pulse Resp BP Pulse Ox 97.4 F L 52 L 16 139/91 96 08/17/19 05:12 06/25/19 09:39 06/25/19 08:41 06/25/19 09:39 06/25/19 05:12 General appearance: Present: no acute distress Results - Labs CBC & Chem 7: 06/19/19 21:54 06/19/19 21:00 Labs: Laboratory Last Values WBC 8.5 K/mm3 (4.5-11.0) 06/19/19 21:00 RBC 3.18 M/mm3 (3.65-5.03) L 06/19/19 21:00 Hgb 11.3 gm/dl (11.8-15.2) L 06/19/19 21:54 Hct 33.3 % (35.5-45.6) L 06/19/19 21:54 MCV 102 fl (84-94) H 06/19/19 21:00 MCH 35 pg (28-32) H 06/19/19 21:00 MCHC 34 % (32-34) 06/19/19 21:00 RDW 17.9 % (13.2-15.2) H 06/19/19 21:00 Plt Count 371 K/mm3 (140-440) 06/19/19 21:54 Lymph % (Auto) 18.7 % (13.4-35.0) 06/19/19 21:00 [place] % (Auto) 9.8 % (0.0-7.3) H 06/19/19 21:00 Eos % (Auto) 0.3 % (0.0-4.3) 06/19/19 21:00 Baso % (Auto) 0.7 % (0.0-1.8) 06/19/19 21:00 Lymph # 1.6 K/mm3 (1.2-5.4) 06/19/19 21:00 [place] # 0.8 K/mm3 (0.0-0.8) 06/19/19 21:00 Eos # 0.0 K/mm3 (0.0-0.4) 06/19/19 21:00 Baso # 0.1 K/mm3 (0.0-0.1) 06/19/19 21:00 Seg Neutrophils % 70.5 % (40.0-70.0) H 06/19/19 21:00 Seg Neutrophils # 6.0 K/mm3 (1.8-7.7) 06/19/19 21:00 PT 14.5 Sec. (12.2-14.9) 06/19/19 21:54 INR 1.16 (0.87-1.13) H 06/19/19 21:54 APTT 24.4 Sec. (24.2-36.6) 06/19/19 21:54 491.40 ng/mlDDU (0-234) H 06/19/19 15:50 Heparin Anti-Xa Level < 0.10 U.I./ml (0.3-0.7) L 06/20/19 08:05 Sodium 135 mmol/L (137-145) L 06/19/19 21:00 Potassium 3.8 mmol/L (3.6-5.0) 06/19/19 21:00 Chloride 96.4 mmol/L (98-107) L 06/19/19 21:00 Carbon Dioxide 26 mmol/L (22-30) 06/19/19 21:00 16 mmol/L 06/19/19 21:00 BUN 16 mg/dL (9-20) 06/19/19 21:00 1.2 mg/dL (0.8-1.5) 06/19/19 21:00 Estimated GFR > 60 ml/min 06/19/19 21:00 13 % 06/19/19 21:00 Glucose 105 mg/dL (75-100) H 06/19/19 21:00 Calcium 8.5 mg/dL (8.4-10.2) 06/19/19 21:00 Magnesium 1.70 mg/dL (1.7-2.3) 06/19/19 17:00 0.50 mg/dL (0.1-1.2) 06/19/19 15:50 AST 27 units/L (5-40) 06/19/19 15:50 ALT 22 units/L (7-56) 06/19/19 15:50 116 units/L (35-129) 06/19/19 15:50 175 units/L (55-170) H 06/19/19 15:50 0.066 ng/mL (0.00-0.029) H 06/20/19 05:00 NT-Pro-B Natriuret Pep 342.2 pg/mL (0-900) 06/19/19 15:50 9.0 g/dL (6.3-8.2) H 06/19/19 15:50 3.5 g/dL (3.9-5) L 06/19/19 15:50 0.6 % 06/19/19 15:50 Triglycerides 119 mg/dL (2-149) 06/19/19 15:50 Cholesterol 118 mg/dL (50-199) 06/19/19 15:50 85 mg/dL (50-130) 06/19/19 15:50 28 mg/dL (40-59) L 06/19/19 15:50 4.21 % 06/19/19 15:50 TSH 13.750 mlU/mL (0.270-4.200) H 06/19/19 15:50 Free T4 0.22 ng/dL (0.76-1.46) L 06/20/19 14:48 1.9 ug/dL (4.0-12.0) L 06/20/19 14:48 Yellow (Yellow) 06/19/19 18:10 Slightly-cloudy (Clear) 06/19/19 18:10 5.0 (5.0-7.0) 06/19/19 18:10 Ur Specific [place] 1.015 (1.003-1.030) 06/19/19 18:10 30 mg/dl mg/dL (Negative) 06/19/19 18:10 Neg mg/dL (Negative) 06/19/19 18:10 Neg mg/dL (Negative) 06/19/19 18:10 Lg (Negative) 06/19/19 18:10 Neg (Negative) 06/19/19 18:10 Neg (Negative) 06/19/19 18:10 < 2.0 mg/dL (<2.0) 06/19/19 18:10 Ur Leukocyte Esterase Neg (Negative) 06/19/19 18:10 6.0 /HPF (0.0-6.0) 06/19/19 18:10 15.0 /HPF (0.0-6.0) 06/19/19 18:10 1+ /HPF (Negative) 06/19/19 18:10 Salicylates < 0.3 mg/dL (2.8-20.0) L 06/19/19 15:50 Presumptive negative 06/19/19 18:10 Presumptive negative 06/19/19 18:10 Acetaminophen < 5.0 ug/mL (10.0-30.0) L 06/19/19 15:50 Ur Barbiturates Screen Presumptive negative 06/19/19 18:10 Ur Phencyclidine Scrn Presumptive negative 06/19/19 18:10 Ur Amphetamines Screen Presumptive negative 06/19/19 18:10 U Benzodiazepines Scrn Presumptive positive 06/19/19 18:10 Presumptive negative 06/19/19 18:10 U Marijuana (THC) Screen Presumptive negative 06/19/19 18:10 Disclamer 06/19/19 18:10 Plasma/Serum Alcohol < 0.01 % (0-0.07) 06/19/19 15:50 Active Medications - Current Medications Current Medications: Generic Name Dose Route Start Last Admin Trade Name Freq PRN Reason Stop Dose Admin Acetaminophen 650 mg 06/19/19 20:27 Tylenol PO Q4H PRN Pain MILD(1-3)/Fever >100.5/PRAJAPATI Alprazolam 0.5 mg 06/21/19 23:11 06/24/19 15:31 Xanax PO 0.5 mg BID PRN Administration Anxiety Amlodipine Besylate 10 mg 06/22/19 10:00 06/25/19 09:39 Norvasc PO 10 mg DAILY JESSICA Administration Aspirin 325 mg 06/20/19 10:00 06/25/19 09:39 Ecotrin PO 325 mg QDAY JESSICA Administration Atorvastatin Calcium 40 mg 06/19/19 22:00 06/24/19 22:00 Lipitor PO 40 mg QHS JESSICA Administration Buspirone HCl 7.5 mg 06/21/19 13:00 06/25/19 09:39 Buspar PO 7.5 mg BID JESSICA Administration Enoxaparin Sodium 40 mg 06/20/19 10:00 06/25/19 09:39 Lovenox SUB-Q 40 mg QDAY JESSICA Administration Famotidine 20 mg 06/21/19 22:00 06/25/19 09:39 Pepcid PO 20 mg BID JESSICA Administration Folic Acid 1 mg 06/20/19 12:00 06/25/19 09:40 Folvite PO 1 mg QDAY JESSICA Administration Levothyroxine Sodium 75 mcg 06/22/19 06:00 06/25/19 08:09 Synthroid PO 75 mcg QAM@0600 JESSICA Administration Lorazepam 2 mg 06/19/19 21:18 06/24/19 20:21 Ativan IV 2 mg Q1H PRN Administration CIWA-Ar 8-15 Lorazepam 4 mg 06/19/19 21:18 Ativan IV Q1H PRN CIWA-Ar 16-25 Lorazepam 4 mg 06/19/19 21:18 Ativan IV Q15MIN PRN CIWA-Ar >25 Meclizine HCl 25 mg 06/21/19 23:11 Antivert PO TID PRN Vertigo Ondansetron HCl 4 mg 06/19/19 20:27 Zofran IV Q8H PRN Nausea And Vomiting Oxycodone HCl 10 mg 06/24/19 22:00 06/25/19 09:40 Oxycontin PO 10 mg Q12HR JESSICA Administration Oxycodone/Acetaminophen 1 tab 06/19/19 20:27 06/23/19 17:34 Percocet 5/325 PO 1 tab Q6H PRN Administration Pain, Moderate (4-6) Sertraline HCl 50 mg 06/21/19 13:00 06/25/19 09:40 Zoloft PO 50 mg QDAY JESSICA Administration Sodium Chloride 10 ml 06/19/19 22:00 06/25/19 09:40 Sodium Chloride Flush Syringe 10 Ml IV 10 ml BID JESSICA Administration Sodium Chloride 10 ml 06/19/19 20:27 Sodium Chloride Flush Syringe 10 Ml IV PRN PRN LINE FLUSH Thiamine HCl 100 mg 06/20/19 12:00 06/25/19 09:40 Vitamin B-1 PO 100 mg QDAY JESSICA Administration
[2019-06-25] MEDS: PERCOCET 5/325 PO PRN ×2 (13:09→18:57)
[2019-06-25] MEDS: XANAX PO PRN (13:11)
[2019-06-26] MEDS: SYNTHROID PO SCH (05:41)
[2019-06-26] MEDS: LOVENOX SUB-Q SCH (09:26)
[2019-06-26] MEDS: OxyCONTIN PO SCH (09:27)
[2019-06-26] MEDS: FOLVITE PO SCH (09:27)
[2019-06-26] MEDS: ZOLOFT PO SCH (09:27)
[2019-06-26] MEDS: VITAMIN B-1 PO SCH (09:27)
[2019-06-26] MEDS: ECOTRIN PO SCH (09:27)
[2019-06-26] MEDS: BUSPAR PO SCH ×2 (09:27→22:33)
[2019-06-26] MEDS: PEPCID PO SCH ×2 (09:27→22:35)
[2019-06-26] MEDS: SODIUM CHLORIDE FLUSH SYRINGE 10 ML IV SCH ×2 (09:28→22:35)
[2019-06-26] MEDS: NORVASC PO SCH (09:28)
--- NOTE | 2019-06-26 09:30 | Progress Note ---
Subjective - Reason for Consult Consult date: 06/26/19 Reason for consult: Psychiatry Follow-up - Chief Complaint Chief complaint: "I'm having issues"" Patient is a 48-year-old white male who presented to the hospital for SOB and chest pain. Psychiatry was consulted to see the patient for SI's and Etoh Abuse. Today the patient was calm and cooperative during the assessment. He continue to endorsed SI's when asked. He stated that he is trying his "hardest" to get past his issues. The patient was asked about his "issues," his responses were vague. He denies HI's and AVH's. He denies any side effects from his medications. Mental Status Exam - Vital signs Last Vital Signs Temp 98.0 F 06/26/19 05:36 Pulse 48 L 06/26/19 06:35 Resp 14 06/26/19 05:36 BP 151/82 06/26/19 06:35 Pulse Ox 99 06/26/19 06:35 - Exam Narrative exam: MSE: Appearance: calm, cooperative Behavior: regular eye contact Speech: regular rate and tone Mood: "still depressed" Affect: flat Thought Process: circumstantial Thought Content: denies HI's and AVH's Motor Activity: lying in bed Cognition: A/O x 3 Insight: variable Judgment: poor Assessment and Plan Impression: MDD, Severe Type. Unspecified Anxiety DO. Today the patient was calm and cooperative during the assessment. The patient continue to endorse SI''s. DDx: Bipolar DO, Alcohol Use DO Recommendations/Plan: The patient's 1013 was extended. Continue Zoloft 50 mg PO daily for depression/anxiety and Buspar 7.5 mg PO BID for anxiety. Discussed possible sucidality/medication induced warren with the patient reference Zoloft, he verbalized understanding. Dispo: The patient will be referred to inpatient psy services. Will staff with Dr Douglas Martinez.
--- NOTE | 2019-06-26 10:55 | Progress Note ---
Assessment and Plan Assessment and plan: Patient is a 48-year-old man with a history of bipolar disoder, MDD, alcohol and tobacco abuse who presents to the hospital with chest pain or shortness of breath, complaining of swollen left leg and rash on his legs. He also reports suicidal ideation * Chest x-ray; atelectasis in the bases * CT head; no acute findings duplex scan of lower extremities; no DVT in either extremity * CT angiogram chest ; Negative for PE, no acute findings Chest pain Cardiology consulted, input noted atypical, suspected psychosomatic Hypertensive urgency with sinus bradycardia since oxycontin q12hr atc added on 06/24/19, HR has been lower than normal, will stop Optimize blood pressure medications Bilateral lower extremity edema/venous stasis of lower extremities Diuretics, echo pending, Dopplers negative for DVT History and physical states that patient has vasculitis; there is no evidence of vasculitis, only venous stasis Suicidal ideation/major depression On 1012, mental health consult I called [facility] because they signed off, which I believe pt needs continuous care possible inpatient psych placement Alcohol dependence Preventative health counseling performed 17 minutes spent CIWA protocol, folate and thiamine Hypothyroidism TSH severely elevated, obtain T4 free T4. Hypothyroidism may be a contribution factor to his depression start levothyroxine 50mcg/day DVT ppx; lovenox Disposition: continue inpatient care, just waiting inpatient psych placement still under suicide watch opiod induced bradycardia, stopped oxycodone-since oxycontin q12hr around the clock added on 06/24/19, HR has been lower than normal, will stop Patient is medically stable to go to inpatient psych History Interval history: Patient was seen and examined. Follow-up on current diagnosis. No overnight events reported to me. Patient denies any chest pain, shortness breath, nausea/vomiting or severe headaches. Imaging, nursing note, chart, labs and old chart reviewed. Discussed with patient. Hospitalist Physical - Physical exam Narrative exam: Gen: WDWN, NAD, Awake, Alert, Orientated HEENT: NCAT, EOMI, PERRL, OP Clear Neck: supple, no adenopathy, no thyromegaly, no JVD CVS/Heart: RRR, normal S1S2, pulses present bilaterally Chest/Lungs: CTA B, Symmetrical chest expansion, good air entry bilaterally GI/Abdomen: soft, NTND, good bowel sounds, no guarding or rebound /Bladder: no suprapubic tenderness, no CVA or paraspinal tenderness Extermity/Skin: no c/c/e, no obvious rash MSK: FROM x 4 Neuro: CN 2-12 grossly intact, no new focal deficits Psych: calm - Constitutional Vitals: Temp Pulse Resp BP Pulse Ox 98.0 F 48 L 14 151/82 99 06/26/19 05:36 06/26/19 06:35 06/26/19 05:36 06/26/19 06:35 06/26/19 06:35 General appearance: Present: no acute distress Results - Labs CBC & Chem 7: 06/19/19 21:54 06/19/19 21:00 Labs: Laboratory Last Values WBC 8.5 K/mm3 (4.5-11.0) 06/19/19 21:00 RBC 3.18 M/mm3 (3.65-5.03) L 06/19/19 21:00 Hgb 11.3 gm/dl (11.8-15.2) L 06/19/19 21:54 Hct 33.3 % (35.5-45.6) L 06/19/19 21:54 MCV 102 fl (84-94) H 06/19/19 21:00 MCH 35 pg (28-32) H 06/19/19 21:00 MCHC 34 % (32-34) 06/19/19 21:00 RDW 17.9 % (13.2-15.2) H 06/19/19 21:00 Plt Count 371 K/mm3 (140-440) 06/19/19 21:54 Lymph % (Auto) 18.7 % (13.4-35.0) 06/19/19 21:00 [place] % (Auto) 9.8 % (0.0-7.3) H 06/19/19 21:00 Eos % (Auto) 0.3 % (0.0-4.3) 06/19/19 21:00 Baso % (Auto) 0.7 % (0.0-1.8) 06/19/19 21:00 Lymph # 1.6 K/mm3 (1.2-5.4) 06/19/19 21:00 [place] # 0.8 K/mm3 (0.0-0.8) 06/19/19 21:00 Eos # 0.0 K/mm3 (0.0-0.4) 06/19/19 21:00 Baso # 0.1 K/mm3 (0.0-0.1) 06/19/19 21:00 Seg Neutrophils % 70.5 % (40.0-70.0) H 06/19/19 21:00 Seg Neutrophils # 6.0 K/mm3 (1.8-7.7) 06/19/19 21:00 PT 14.5 Sec. (12.2-14.9) 06/19/19 21:54 INR 1.16 (0.87-1.13) H 06/19/19 21:54 APTT 24.4 Sec. (24.2-36.6) 06/19/19 21:54 491.40 ng/mlDDU (0-234) H 06/19/19 15:50 Heparin Anti-Xa Level < 0.10 U.I./ml (0.3-0.7) L 06/20/19 08:05 Sodium 135 mmol/L (137-145) L 06/19/19 21:00 Potassium 3.8 mmol/L (3.6-5.0) 06/19/19 21:00 Chloride 96.4 mmol/L (98-107) L 06/19/19 21:00 Carbon Dioxide 26 mmol/L (22-30) 06/19/19 21:00 16 mmol/L 06/19/19 21:00 BUN 16 mg/dL (9-20) 06/19/19 21:00 1.2 mg/dL (0.8-1.5) 06/19/19 21:00 Estimated GFR > 60 ml/min 06/19/19 21:00 13 % 06/19/19 21:00 Glucose 105 mg/dL (75-100) H 06/19/19 21:00 Calcium 8.5 mg/dL (8.4-10.2) 06/19/19 21:00 Magnesium 1.70 mg/dL (1.7-2.3) 06/19/19 17:00 0.50 mg/dL (0.1-1.2) 06/19/19 15:50 AST 27 units/L (5-40) 06/19/19 15:50 ALT 22 units/L (7-56) 06/19/19 15:50 116 units/L (35-129) 06/19/19 15:50 175 units/L (55-170) H 06/19/19 15:50 0.066 ng/mL (0.00-0.029) H 06/20/19 05:00 NT-Pro-B Natriuret Pep 342.2 pg/mL (0-900) 06/19/19 15:50 9.0 g/dL (6.3-8.2) H 06/19/19 15:50 3.5 g/dL (3.9-5) L 06/19/19 15:50 0.6 % 06/19/19 15:50 Triglycerides 119 mg/dL (2-149) 06/19/19 15:50 Cholesterol 118 mg/dL (50-199) 06/19/19 15:50 85 mg/dL (50-130) 06/19/19 15:50 28 mg/dL (40-59) L 06/19/19 15:50 4.21 % 06/19/19 15:50 TSH 13.750 mlU/mL (0.270-4.200) H 06/19/19 15:50 Free T4 0.22 ng/dL (0.76-1.46) L 06/20/19 14:48 1.9 ug/dL (4.0-12.0) L 06/20/19 14:48 Yellow (Yellow) 06/19/19 18:10 Slightly-cloudy (Clear) 06/19/19 18:10 5.0 (5.0-7.0) 06/19/19 18:10 Ur Specific [place] 1.015 (1.003-1.030) 06/19/19 18:10 30 mg/dl mg/dL (Negative) 06/19/19 18:10 Neg mg/dL (Negative) 06/19/19 18:10 Neg mg/dL (Negative) 06/19/19 18:10 Lg (Negative) 06/19/19 18:10 Neg (Negative) 06/19/19 18:10 Neg (Negative) 06/19/19 18:10 < 2.0 mg/dL (<2.0) 06/19/19 18:10 Ur Leukocyte Esterase Neg (Negative) 06/19/19 18:10 6.0 /HPF (0.0-6.0) 06/19/19 18:10 15.0 /HPF (0.0-6.0) 06/19/19 18:10 1+ /HPF (Negative) 06/19/19 18:10 Salicylates < 0.3 mg/dL (2.8-20.0) L 06/19/19 15:50 Presumptive negative 06/19/19 18:10 Presumptive negative 06/19/19 18:10 Acetaminophen < 5.0 ug/mL (10.0-30.0) L 06/19/19 15:50 Ur Barbiturates Screen Presumptive negative 06/19/19 18:10 Ur Phencyclidine Scrn Presumptive negative 06/19/19 18:10 Ur Amphetamines Screen Presumptive negative 06/19/19 18:10 U Benzodiazepines Scrn Presumptive positive 06/19/19 18:10 Presumptive negative 06/19/19 18:10 U Marijuana (THC) Screen Presumptive negative 06/19/19 18:10 Disclamer 06/19/19 18:10 Plasma/Serum Alcohol < 0.01 % (0-0.07) 06/19/19 15:50 Active Medications - Current Medications Current Medications: Generic Name Dose Route Start Last Admin Trade Name Torri PRN Reason Stop Dose Admin Acetaminophen 650 mg 06/19/19 20:27 Tylenol PO Q4H PRN Pain MILD(1-3)/Fever >100.5/PRAJAPATI Alprazolam 0.5 mg 06/21/19 23:11 06/25/19 13:11 Xanax PO 0.5 mg BID PRN Administration Anxiety Amlodipine Besylate 10 mg 06/22/19 10:00 06/26/19 09:28 Norvasc PO 10 mg DAILY JESSICA Administration Aspirin 325 mg 06/20/19 10:00 06/26/19 09:27 Ecotrin PO 325 mg QDAY JESSICA Administration Atorvastatin Calcium 40 mg 06/19/19 22:00 06/25/19 21:54 Lipitor PO 40 mg QHS JESSICA Administration Buspirone HCl 7.5 mg 06/21/19 13:00 06/26/19 09:27 Buspar PO 7.5 mg BID JESSICA Administration Enoxaparin Sodium 40 mg 06/20/19 10:00 06/26/19 09:26 Lovenox SUB-Q 40 mg QDAY JESSICA Administration Famotidine 20 mg 06/21/19 22:00 06/26/19 09:27 Pepcid PO 20 mg BID JESSICA Administration Folic Acid 1 mg 06/20/19 12:00 06/26/19 09:27 Folvite PO 1 mg QDAY JESSICA Administration Levothyroxine Sodium 75 mcg 06/22/19 06:00 06/26/19 05:41 Synthroid PO 75 mcg QAM@0600 JESSICA Administration Lorazepam 2 mg 06/19/19 21:18 06/24/19 20:21 Ativan IV 2 mg Q1H PRN Administration CIWA-Ar 8-15 Lorazepam 4 mg 06/19/19 21:18 Ativan IV Q1H PRN CIWA-Ar 16-25 Lorazepam 4 mg 06/19/19 21:18 Ativan IV Q15MIN PRN CIWA-Ar >25 Meclizine HCl 25 mg 06/21/19 23:11 Antivert PO TID PRN Vertigo Ondansetron HCl 4 mg 06/19/19 20:27 Zofran IV Q8H PRN Nausea And Vomiting Oxycodone HCl 10 mg 06/24/19 22:00 06/26/19 09:27 Oxycontin PO 10 mg Q12HR JESSICA Administration Oxycodone/Acetaminophen 1 tab 06/19/19 20:27 06/25/19 18:57 Percocet 5/325 PO 1 tab Q6H PRN Administration Pain, Moderate (4-6) Sertraline HCl 50 mg 06/21/19 13:00 06/26/19 09:27 Zoloft PO 50 mg QDAY JESSICA Administration Sodium Chloride 10 ml 06/19/19 22:00 06/26/19 09:28 Sodium Chloride Flush Syringe 10 Ml IV 10 ml BID JESSICA Administration Sodium Chloride 10 ml 06/19/19 20:27 Sodium Chloride Flush Syringe 10 Ml IV PRN PRN LINE FLUSH Thiamine HCl 100 mg 06/20/19 12:00 06/26/19 09:27 Vitamin B-1 PO 100 mg QDAY JESSICA Administration
[2019-06-26] MEDS: PERCOCET 5/325 PO PRN (14:58)
[2019-06-26] MEDS: XANAX PO PRN (16:15)
[2019-06-27] MEDS: SYNTHROID PO SCH (06:05)
[2019-06-27] MEDS: XANAX PO PRN (08:13)
[2019-06-27] MEDS: FOLVITE PO SCH (10:19)
[2019-06-27] MEDS: LOVENOX SUB-Q SCH (10:20)
[2019-06-27] MEDS: PERCOCET 5/325 PO PRN ×3 (10:20→23:46)
[2019-06-27] MEDS: BUSPAR PO SCH ×2 (10:20→23:41)
[2019-06-27] MEDS: ECOTRIN PO SCH (10:20)
[2019-06-27] MEDS: VITAMIN B-1 PO SCH (10:20)
[2019-06-27] MEDS: PEPCID PO SCH ×2 (10:20→23:41)
[2019-06-27] MEDS: ZOLOFT PO SCH (10:20)
--- NOTE | 2019-06-27 10:41 | Progress Note ---
Subjective - Reason for Consult Consult date: 06/27/19 Reason for consult: Psychiatry Follow-up - Chief Complaint Chief complaint: "I have no reason to live""" Patient is a 48-year-old white male who presented to the hospital for SOB and chest pain. Psychiatry was consulted to see the patient for SI's and etoh abuse. Today the patient was calm during the assessment. He was vague when asked about his depression. He did state., "I have no reason to live." He continue to endorse SI's, but would not confirm or deny a suicide plan. He denies HI's and AVH's. He denies any side effects from his medications. Mental Status Exam - Vital signs Last Vital Signs Temp 97.4 F L 06/26/19 22:40 Pulse 45 L 06/26/19 22:40 Resp 16 06/26/19 22:40 BP 146/81 06/26/19 22:40 Pulse Ox 99 06/26/19 22:40 - Exam Narrative exam: MSE: Appearance: calm Behavior: regular eye contact Speech: regular rate and tone Mood: "not well" Affect: flat Thought Process: circumstantial Thought Content: denies HI's and AVH's Motor Activity: lying in bed Cognition: A/O x 3 Insight: vague Judgment: poor Assessment and Plan Impression: MDD, Severe Type. Unspecified Anxiety DO. Today the patient was calm and cooperative during the assessment. The patient continue to endorse SI''s. DDx: Bipolar DO, Alcohol Use DO Recommendations/Plan: Continue 1013. Continue Zoloft 50 mg PO daily for depression/anxiety and Buspar 7.5 mg PO BID for anxiety. Discussed possible sucidality/medication induced warren with the patient reference Zoloft, he verbalized understanding. Dispo: The patient was referred to inpatient psy services. Will staff with Dr Douglas Martinez.
--- NOTE | 2019-06-27 14:02 | Progress Note ---
Assessment and Plan Assessment and plan: Patient is a 48-year-old man with a history of bipolar disoder, MDD, alcohol and tobacco abuse who presents to the hospital with chest pain or shortness of breath, complaining of swollen left leg and rash on his legs. He also reports suicidal ideation * Chest x-ray; atelectasis in the bases * CT head; no acute findings duplex scan of lower extremities; no DVT in either extremity * CT angiogram chest ; Negative for PE, no acute findings Chest pain Cardiology consulted, input noted atypical, suspected psychosomatic Hypertensive urgency with sinus bradycardia since oxycontin q12hr atc added on 06/24/19, HR has been lower than normal, will stop Optimize blood pressure medications Bilateral lower extremity edema/venous stasis of lower extremities Diuretics, echo pending, Dopplers negative for DVT History and physical states that patient has vasculitis; there is no evidence of vasculitis, only venous stasis Suicidal ideation/major depression On 1012, mental health consult I called [facility] because they signed off, which I believe pt needs continuous care possible inpatient psych placement Alcohol dependence Preventative health counseling performed 17 minutes spent CIWA protocol, folate and thiamine Hypothyroidism TSH severely elevated, obtain T4 free T4. Hypothyroidism may be a contribution factor to his depression start levothyroxine 50mcg/day DVT ppx; lovenox Disposition: continue inpatient care, just waiting inpatient psych placement still under suicide watch Opiod induced bradycardia, stopped oxycodone-since oxycontin q12hr around the clock added on 06/24/19, HR has been lower than normal, will stop Heart rate down to 47, re-consulted Cardiology and spoke with SANDRITA Barajas for Cardiology, repeat TSH History Interval history: Patient was seen and examined. Follow-up on current diagnosis of SI, which patient still says he is suicidal. No overnight events reported to me. Patient denies any chest pain, shortness breath, nausea/vomiting or severe headaches. Imaging, nursing note, chart, labs and old chart reviewed. Discussed with patient. Hospitalist Physical - Physical exam Narrative exam: Gen: WDWN, NAD, Awake, Alert, Orientated HEENT: NCAT, EOMI, PERRL, OP Clear Neck: supple, no adenopathy, no thyromegaly, no JVD CVS/Heart: bradycardia, normal S1S2, pulses present bilaterally Chest/Lungs: CTA B, Symmetrical chest expansion, good air entry bilaterally GI/Abdomen: soft, NTND, good bowel sounds, no guarding or rebound /Bladder: no suprapubic tenderness, no CVA or paraspinal tenderness Extermity/Skin: no c/c/e, no obvious rash, left foot bigger than right MSK: FROM x 4 Neuro: CN 2-12 grossly intact, no new focal deficits Psych: down mood - Constitutional Vitals: Temp Pulse Resp BP Pulse Ox 97.3 F L 47 L 18 122/79 98 06/27/19 11:50 06/27/19 11:50 06/27/19 11:50 06/27/19 11:50 06/27/19 11:50 General appearance: Present: no acute distress Results - Labs CBC & Chem 7: 06/19/19 21:54 06/19/19 21:00 Labs: Laboratory Last Values WBC 8.5 K/mm3 (4.5-11.0) 06/19/19 21:00 RBC 3.18 M/mm3 (3.65-5.03) L 06/19/19 21:00 Hgb 11.3 gm/dl (11.8-15.2) L 06/19/19 21:54 Hct 33.3 % (35.5-45.6) L 06/19/19 21:54 MCV 102 fl (84-94) H 06/19/19 21:00 MCH 35 pg (28-32) H 06/19/19 21:00 MCHC 34 % (32-34) 06/19/19 21:00 RDW 17.9 % (13.2-15.2) H 06/19/19 21:00 Plt Count 371 K/mm3 (140-440) 06/19/19 21:54 Lymph % (Auto) 18.7 % (13.4-35.0) 06/19/19 21:00 [place] % (Auto) 9.8 % (0.0-7.3) H 06/19/19 21:00 Eos % (Auto) 0.3 % (0.0-4.3) 06/19/19 21:00 Baso % (Auto) 0.7 % (0.0-1.8) 06/19/19 21:00 Lymph # 1.6 K/mm3 (1.2-5.4) 06/19/19 21:00 [place] # 0.8 K/mm3 (0.0-0.8) 06/19/19 21:00 Eos # 0.0 K/mm3 (0.0-0.4) 06/19/19 21:00 Baso # 0.1 K/mm3 (0.0-0.1) 06/19/19 21:00 Seg Neutrophils % 70.5 % (40.0-70.0) H 06/19/19 21:00 Seg Neutrophils # 6.0 K/mm3 (1.8-7.7) 06/19/19 21:00 PT 14.5 Sec. (12.2-14.9) 06/19/19 21:54 INR 1.16 (0.87-1.13) H 06/19/19 21:54 APTT 24.4 Sec. (24.2-36.6) 06/19/19 21:54 491.40 ng/mlDDU (0-234) H 06/19/19 15:50 Heparin Anti-Xa Level < 0.10 U.I./ml (0.3-0.7) L 06/20/19 08:05 Sodium 135 mmol/L (137-145) L 06/19/19 21:00 Potassium 3.8 mmol/L (3.6-5.0) 06/19/19 21:00 Chloride 96.4 mmol/L (98-107) L 06/19/19 21:00 Carbon Dioxide 26 mmol/L (22-30) 06/19/19 21:00 16 mmol/L 06/19/19 21:00 BUN 16 mg/dL (9-20) 06/19/19 21:00 1.2 mg/dL (0.8-1.5) 06/19/19 21:00 Estimated GFR > 60 ml/min 06/19/19 21:00 13 % 06/19/19 21:00 Glucose 105 mg/dL (75-100) H 06/19/19 21:00 Calcium 8.5 mg/dL (8.4-10.2) 06/19/19 21:00 Magnesium 1.70 mg/dL (1.7-2.3) 06/19/19 17:00 0.50 mg/dL (0.1-1.2) 06/19/19 15:50 AST 27 units/L (5-40) 06/19/19 15:50 ALT 22 units/L (7-56) 06/19/19 15:50 116 units/L (35-129) 06/19/19 15:50 175 units/L (55-170) H 06/19/19 15:50 0.066 ng/mL (0.00-0.029) H 06/20/19 05:00 NT-Pro-B Natriuret Pep 342.2 pg/mL (0-900) 06/19/19 15:50 9.0 g/dL (6.3-8.2) H 06/19/19 15:50 3.5 g/dL (3.9-5) L 06/19/19 15:50 0.6 % 06/19/19 15:50 Triglycerides 119 mg/dL (2-149) 06/19/19 15:50 Cholesterol 118 mg/dL (50-199) 06/19/19 15:50 85 mg/dL (50-130) 06/19/19 15:50 28 mg/dL (40-59) L 06/19/19 15:50 4.21 % 06/19/19 15:50 TSH 13.750 mlU/mL (0.270-4.200) H 06/19/19 15:50 Free T4 0.22 ng/dL (0.76-1.46) L 06/20/19 14:48 1.9 ug/dL (4.0-12.0) L 06/20/19 14:48 Yellow (Yellow) 06/19/19 18:10 Slightly-cloudy (Clear) 06/19/19 18:10 5.0 (5.0-7.0) 06/19/19 18:10 Ur Specific [place] 1.015 (1.003-1.030) 06/19/19 18:10 30 mg/dl mg/dL (Negative) 06/19/19 18:10 Neg mg/dL (Negative) 06/19/19 18:10 Neg mg/dL (Negative) 06/19/19 18:10 Lg (Negative) 06/19/19 18:10 Neg (Negative) 06/19/19 18:10 Neg (Negative) 06/19/19 18:10 < 2.0 mg/dL (<2.0) 06/19/19 18:10 Ur Leukocyte Esterase Neg (Negative) 06/19/19 18:10 6.0 /HPF (0.0-6.0) 06/19/19 18:10 15.0 /HPF (0.0-6.0) 06/19/19 18:10 1+ /HPF (Negative) 06/19/19 18:10 Salicylates < 0.3 mg/dL (2.8-20.0) L 06/19/19 15:50 Presumptive negative 06/19/19 18:10 Presumptive negative 06/19/19 18:10 Acetaminophen < 5.0 ug/mL (10.0-30.0) L 06/19/19 15:50 Ur Barbiturates Screen Presumptive negative 06/19/19 18:10 Ur Phencyclidine Scrn Presumptive negative 06/19/19 18:10 Ur Amphetamines Screen Presumptive negative 06/19/19 18:10 U Benzodiazepines Scrn Presumptive positive 06/19/19 18:10 Presumptive negative 06/19/19 18:10 U Marijuana (THC) Screen Presumptive negative 06/19/19 18:10 Disclamer 06/19/19 18:10 Plasma/Serum Alcohol < 0.01 % (0-0.07) 06/19/19 15:50 Active Medications - Current Medications Current Medications: Generic Name Dose Route Start Last Admin Trade Name Freq PRN Reason Stop Dose Admin Acetaminophen 650 mg 06/19/19 20:27 Tylenol PO Q4H PRN Pain MILD(1-3)/Fever >100.5/PRAJAPATI Alprazolam 0.5 mg 06/21/19 23:11 06/27/19 08:13 Xanax PO 0.5 mg BID PRN Administration Anxiety Amlodipine Besylate 10 mg 06/22/19 10:00 06/26/19 09:28 Norvasc PO 10 mg DAILY JESSICA Administration Aspirin 325 mg 06/20/19 10:00 06/27/19 10:20 Ecotrin PO 325 mg QDAY JESSICA Administration Atorvastatin Calcium 40 mg 06/19/19 22:00 06/26/19 22:35 Lipitor PO 40 mg QHS JESSICA Administration Buspirone HCl 7.5 mg 06/21/19 13:00 06/27/19 10:20 Buspar PO 7.5 mg BID JESSICA Administration Enoxaparin Sodium 40 mg 06/20/19 10:00 06/27/19 10:20 Lovenox SUB-Q 40 mg QDAY JESSICA Administration Famotidine 20 mg 06/21/19 22:00 06/27/19 10:20 Pepcid PO 20 mg BID JESSICA Administration Folic Acid 1 mg 06/20/19 12:00 06/27/19 10:19 Folvite PO 1 mg QDAY JESSICA Administration Levothyroxine Sodium 75 mcg 06/22/19 06:00 06/27/19 06:05 Synthroid PO 75 mcg QAM@0600 JESSICA Administration Lorazepam 2 mg 06/19/19 21:18 06/24/19 20:21 Ativan IV 2 mg Q1H PRN Administration CIWA-Ar 8-15 Lorazepam 4 mg 06/19/19 21:18 Ativan IV Q1H PRN CIWA-Ar 16-25 Lorazepam 4 mg 06/19/19 21:18 Ativan IV Q15MIN PRN CIWA-Ar >25 Meclizine HCl 25 mg 06/21/19 23:11 Antivert PO TID PRN Vertigo Ondansetron HCl 4 mg 06/19/19 20:27 Zofran IV Q8H PRN Nausea And Vomiting Oxycodone/Acetaminophen 1 tab 06/19/19 20:27 06/27/19 10:20 Percocet 5/325 PO 1 tab Q6H PRN Administration Pain, Moderate (4-6) Sertraline HCl 50 mg 06/21/19 13:00 06/27/19 10:20 Zoloft PO 50 mg QDAY JESSICA Administration Sodium Chloride 10 ml 06/19/19 22:00 06/26/19 22:35 Sodium Chloride Flush Syringe 10 Ml IV 10 ml BID JESSICA Administration Sodium Chloride 10 ml 06/19/19 20:27 Sodium Chloride Flush Syringe 10 Ml IV PRN PRN LINE FLUSH Thiamine HCl 100 mg 06/20/19 12:00 06/27/19 10:20 Vitamin B-1 PO 100 mg QDAY JESSICA Administration
--- NOTE | 2019-06-27 14:24 | Progress Note ---
<MICHELE ARNOLD - Last Filed: 06/27/19 14:19> Assessment and Plan Suicide ideation Depression Chest pain, atypical Shortness of breath Mild elevated troponin ETOH abuse Hypothyroidism TSH 13.7 Sinus bradycardia pt remains asymptomatic. likely secondary to hypothyroidism Echocardiogram shows left ventricle systolic function of the lower limits of normal, ejection fraction 50%, otherwise no significant valvular lesions. Recommend: Resume remote telemetry; monitor for any significant bradyarrhythmias. Check electrolytes. Subjective Date of service: 06/27/19 Interval history: Cardiology recalled for bradycardia reported on vitals. He is no longer on remote telemetry. Patient is resting in bed and has no complaints. He denies dizziness and light headedness. Objective Vital Signs Temp Pulse Resp Resp BP Pulse Ox 06/27/19 11:50 97.3 F L 47 L 18 122/79 98 06/27/19 06:13 97.5 F L 47 L 16 148/75 100 06/26/19 22:40 97.4 F L 45 L 16 146/81 99 06/26/19 22:00 18 06/26/19 19:21 97.8 F 51 L 16 130/85 99 06/26/19 19:00 17 06/26/19 17:41 98.2 F 49 L 12 134/84 99 - Physical Examination General: No Apparent Distress HEENT: Positive: PERRL Neck: Positive: trachea midline Cardiac: Positive: Bradycardia Lungs: Positive: Decreased Breath Sounds Neuro: Positive: Grossly Intact Extremities: Present: edema <EMANUEL MILLAN - Last Filed: 06/27/19 14:49> Assessment and Plan As seen and evaluated the patient improved assessment and plan. Patient is noted to be having a heart rate into the 40s. Patient's EKG shows sinus rhythm. Patient is hemodynamically stable with a hypertensive blood pressure. We'll start the patient on telemetry and check the patient's electrolytes. Notably the patient is significantly hypothyroid with TSH measuring 13.7. Recommend treatment with levothyroxine. Avoid all AV alex blockers. DC amlodipine as rarely this can cause some measure bradycardia. Objective Vital Signs Temp Pulse Resp Resp BP Pulse Ox 06/27/19 11:50 97.3 F L 47 L 18 122/79 98 06/27/19 06:13 97.5 F L 47 L 16 148/75 100 06/26/19 22:40 97.4 F L 45 L 16 146/81 99 06/26/19 22:00 18 06/26/19 19:21 97.8 F 51 L 16 130/85 99 06/26/19 19:00 17 06/26/19 17:41 98.2 F 49 L 12 134/84 99
[2019-06-27] MEDS: NORVASC PO SCH (15:11)
[2019-06-27 15:24] LABS: BUN/Creatinine Ratio 10; Blood Urea Nitrogen 12 mg/dL (9-20); Calcium 10.2 mg/dL (8.4-10.2); Hemolysis Index 5
[2019-06-27] MEDS: ATIVAN PO PRN (18:24)
[2019-06-27] MEDS: SODIUM CHLORIDE FLUSH SYRINGE 10 ML IV SCH ×2 (18:27→23:41)
[2019-06-28] MEDS: SYNTHROID PO SCH (05:30)
[2019-06-28] MEDS ORDERED: SYNTHROID PO SCH (08:03)
[2019-06-28] MEDS ORDERED: SYNTHROID PO ONE (08:06)
--- NOTE | 2019-06-28 08:10 | Progress Note ---
Assessment and Plan Assessment and plan: Assessment and Plan Assessment and plan: Patient is a 48-year-old man with a history of bipolar disoder, MDD, alcohol and tobacco abuse who presents to the hospital with chest pain or shortness of breath, complaining of swollen left leg and rash on his legs. He also reports s uicidal ideation * Chest x-ray; atelectasis in the bases * CT head; no acute findings duplex scan of lower extremities; no DVT in either extremity * CT angiogram chest ; Negative for PE, no acute findings Chest pain Cardiology consulted, input noted atypical, suspected psychosomatic Hypertensive urgency with sinus bradycardia since oxycontin q12hr atc added on 06/24/19, HR has been lower than normal, will stop Optimize blood pressure medications Hypothyroidism TSH severely elevated, obtain T4 free T4. Hypothyroidism may be a contribution factor to his depression Initially started on levothyroxine 50mcg/day- Med rec showed the patient was on 75mcg at home, although patient tells me that he follows at [facility] in [place] and takes 100mg at home but had stopped taken for a few weeks now because he was felling bad. will increase to 100mcg starting tomorrow and will give additional 25mcg today since pateint had been changed to 75mcg since the . I have spent 30mins educating this patient on the importance of compliance and how long it takes to achieve synergy. He verbalized understanding. Bradycardia: Asymptomatic, Cardiology evaluated. Adjustments as noted with Levothyroxine. Outpatient cardiology eval and repeat TSH/Free t4 IN 6 WEEKS. Left ankle pain Per patient, chronic, hx of nonunion, plans outaptient follow up with Ortho. Bilateral lower extremity edema/venous stasis of lower extremities Diuretics, echo pending, Dopplers negative for DVT History and physical states that patient has vasculitis; there is no evidence of vasculitis, only venous stasis Suicidal ideation/major depression On 1012, mental health consult I called [facility] because they signed off, which I believe pt needs continuous care possible inpatient psych placement Alcohol dependence Preventative health counseling performed 17 minutes spent CIWA protocol, folate and thiamine DVT ppx; lovenox Disposition: continue inpatient care, just waiting inpatient psych placement still under suicide watch Opiod induced bradycardia, stopped oxycodone-since oxycontin q12hr around the clock added on 06/24/19, HR has been lower than normal, will stop Patient is medically stable for discharge and continued Psych care inpatient. History Interval history: Patient was seen and examined. Follow-up on current diagnosis of SI, which patient still says he is suicidal. No overnight events reported to me. Discused with the patient, he takes levothyroxine 100mcg at home although stopped for a few weeks. Patient denies any chest pain, shortness breath, nausea/vomiting or severe headaches. Imaging, nursing note, chart, labs and old chart reviewed. Di scussed with patient. Hospitalist Physical - Physical exam Narrative exam: Gen: WDWN, NAD, Awake, Alert, Orientated HEENT: NCAT, EOMI, PERRL, OP Clear Neck: supple, no adenopathy, no thyromegaly, no JVD CVS/Heart: bradycardia, normal S1S2, pulses present bilaterally Chest/Lungs: CTA B, Symmetrical chest expansion, good air entry bilaterally GI/Abdomen: soft, NTND, good bowel sounds, no guarding or rebound /Bladder: No suprapubic tenderness, no CVA or paraspinal tenderness Extermity/Skin: no c/c/e, no obvious rash, left foot bigger than right MSK: FROM x 4 Neuro: CN 2-12 grossly intact, no new focal deficits Psych: down mood - Constitutional Vitals: Temp Pulse Resp BP Pulse Ox 97.5 F L 53 L 18 132/68 96 06/28/19 05:15 06/28/19 05:15 06/28/19 05:15 06/28/19 05:15 06/28/19 05:15 General appearance: Present: no acute distress Results - Labs CBC & Chem 7: 06/19/19 21:54 06/27/19 14:42 Labs: Laboratory Last Values WBC 8.5 K/mm3 (4.5-11.0) 06/19/19 21:00 RBC 3.18 M/mm3 (3.65-5.03) L 06/19/19 21:00 Hgb 11.3 gm/dl (11.8-15.2) L 06/19/19 21:54 Hct 33.3 % (35.5-45.6) L 06/19/19 21:54 MCV 102 fl (84-94) H 06/19/19 21:00 MCH 35 pg (28-32) H 06/19/19 21:00 MCHC 34 % (32-34) 06/19/19 21:00 RDW 17.9 % (13.2-15.2) H 06/19/19 21:00 Plt Count 371 K/mm3 (140-440) 06/19/19 21:54 Lymph % (Auto) 18.7 % (13.4-35.0) 06/19/19 21:00 [place] % (Auto) 9.8 % (0.0-7.3) H 06/19/19 21:00 Eos % (Auto) 0.3 % (0.0-4.3) 06/19/19 21:00 Baso % (Auto) 0.7 % (0.0-1.8) 06/19/19 21:00 Lymph # 1.6 K/mm3 (1.2-5.4) 06/19/19 21:00 [place] # 0.8 K/mm3 (0.0-0.8) 06/19/19 21:00 Eos # 0.0 K/mm3 (0.0-0.4) 06/19/19 21:00 Baso # 0.1 K/mm3 (0.0-0.1) 06/19/19 21:00 Seg Neutrophils % 70.5 % (40.0-70.0) H 06/19/19 21:00 Seg Neutrophils # 6.0 K/mm3 (1.8-7.7) 06/19/19 21:00 PT 14.5 Sec. (12.2-14.9) 06/19/19 21:54 INR 1.16 (0.87-1.13) H 06/19/19 21:54 APTT 24.4 Sec. (24.2-36.6) 06/19/19 21:54 491.40 ng/mlDDU (0-234) H 06/19/19 15:50 Heparin Anti-Xa Level < 0.10 U.I./ml (0.3-0.7) L 06/20/19 08:05 Sodium 139 mmol/L (137-145) 06/27/19 14:42 Potassium 4.6 mmol/L (3.6-5.0) 06/27/19 14:42 Chloride 98.8 mmol/L (98-107) 06/27/19 14:42 Carbon Dioxide 31 mmol/L (22-30) H 06/27/19 14:42 14 mmol/L 06/27/19 14:42 BUN 12 mg/dL (9-20) 06/27/19 14:42 1.2 mg/dL (0.8-1.5) 06/27/19 14:42 Estimated GFR > 60 ml/min 06/27/19 14:42 10 % 06/27/19 14:42 Glucose 97 mg/dL (75-100) 06/27/19 14:42 Calcium 10.2 mg/dL (8.4-10.2) 06/27/19 14:42 Magnesium 2.00 mg/dL (1.7-2.3) 06/27/19 14:42 0.50 mg/dL (0.1-1.2) 06/19/19 15:50 AST 27 units/L (5-40) 06/19/19 15:50 ALT 22 units/L (7-56) 06/19/19 15:50 116 units/L (35-129) 06/19/19 15:50 175 units/L (55-170) H 06/19/19 15:50 0.066 ng/mL (0.00-0.029) H 06/20/19 05:00 NT-Pro-B Natriuret Pep 342.2 pg/mL (0-900) 06/19/19 15:50 9.0 g/dL (6.3-8.2) H 06/19/19 15:50 3.5 g/dL (3.9-5) L 06/19/19 15:50 0.6 % 06/19/19 15:50 Triglycerides 119 mg/dL (2-149) 06/19/19 15:50 Cholesterol 118 mg/dL (50-199) 06/19/19 15:50 85 mg/dL (50-130) 06/19/19 15:50 28 mg/dL (40-59) L 06/19/19 15:50 4.21 % 06/19/19 15:50 TSH 37.730 mlU/mL (0.270-4.200) H 06/28/19 04:35 Free T4 0.22 ng/dL (0.76-1.46) L 06/20/19 14:48 1.9 ug/dL (4.0-12.0) L 06/20/19 14:48 Yellow (Yellow) 06/19/19 18:10 Slightly-cloudy (Clear) 06/19/19 18:10 5.0 (5.0-7.0) 06/19/19 18:10 Ur Specific [place] 1.015 (1.003-1.030) 06/19/19 18:10 30 mg/dl mg/dL (Negative) 06/19/19 18:10 Neg mg/dL (Negative) 06/19/19 18:10 Neg mg/dL (Negative) 06/19/19 18:10 Lg (Negative) 06/19/19 18:10 Neg (Negative) 06/19/19 18:10 Neg (Negative) 06/19/19 18:10 < 2.0 mg/dL (<2.0) 06/19/19 18:10 Ur Leukocyte Esterase Neg (Negative) 06/19/19 18:10 6.0 /HPF (0.0-6.0) 06/19/19 18:10 15.0 /HPF (0.0-6.0) 06/19/19 18:10 1+ /HPF (Negative) 06/19/19 18:10 Salicylates < 0.3 mg/dL (2.8-20.0) L 06/19/19 15:50 Presumptive negative 06/19/19 18:10 Presumptive negative 06/19/19 18:10 Acetaminophen < 5.0 ug/mL (10.0-30.0) L 06/19/19 15:50 Ur Barbiturates Screen Presumptive negative 06/19/19 18:10 Ur Phencyclidine Scrn Presumptive negative 06/19/19 18:10 Ur Amphetamines Screen Presumptive negative 06/19/19 18:10 U Benzodiazepines Scrn Presumptive positive 06/19/19 18:10 Presumptive negative 06/19/19 18:10 U Marijuana (THC) Screen Presumptive negative 06/19/19 18:10 Disclamer 06/19/19 18:10 Plasma/Serum Alcohol < 0.01 % (0-0.07) 06/19/19 15:50 Active Medications - Current Medications Current Medications: Generic Name Dose Route Start Last Admin Trade Name Freq PRN Reason Stop Dose Admin Acetaminophen 650 mg 06/19/19 20:27 Tylenol PO Q4H PRN Pain MILD(1-3)/Fever >100.5/PRAJAPATI Aspirin 325 mg 06/20/19 10:00 06/27/19 10:20 Ecotrin PO 325 mg QDAY JESSICA Administration Atorvastatin Calcium 40 mg 06/19/19 22:00 06/27/19 23:42 Lipitor PO 40 mg QHS JESSICA Administration Buspirone HCl 7.5 mg 06/21/19 13:00 06/27/19 23:41 Buspar PO 7.5 mg BID JESSICA Administration Enoxaparin Sodium 40 mg 06/20/19 10:00 06/27/19 10:20 Lovenox SUB-Q 40 mg QDAY JESSICA Administration Famotidine 20 mg 06/21/19 22:00 06/27/19 23:41 Pepcid PO 20 mg BID JESSICA Administration Folic Acid 1 mg 06/20/19 12:00 06/27/19 10:19 Folvite PO 1 mg QDAY JESSICA Administration Levothyroxine Sodium 100 mcg 06/28/19 08:03 Synthroid PO QAM@0600 JESSICA Levothyroxine Sodium 25 mcg 06/28/19 08:06 Synthroid PO 06/28/19 08:07 ONCE ONE Lisinopril 20 mg 06/28/19 10:00 Zestril PO QDAY JESSICA Lorazepam 2 mg 06/19/19 21:18 06/24/19 20:21 Ativan IV 2 mg Q1H PRN Administration CIWA-Ar 8-15 Lorazepam 4 mg 06/19/19 21:18 Ativan IV Q1H PRN CIWA-Ar 16-25 Lorazepam 4 mg 06/19/19 21:18 Ativan IV Q15MIN PRN CIWA-Ar >25 Lorazepam 0.5 mg 06/27/19 18:00 06/27/19 18:24 Ativan PO 0.5 mg BID PRN Administration Agitation Meclizine HCl 25 mg 06/21/19 23:11 Antivert PO TID PRN Vertigo Ondansetron HCl 4 mg 06/19/19 20:27 Zofran IV Q8H PRN Nausea And Vomiting Oxycodone/Acetaminophen 1 tab 06/19/19 20:27 06/27/19 23:46 Percocet 5/325 PO 1 tab Q6H PRN Administration Pain, Moderate (4-6) Sertraline HCl 50 mg 06/21/19 13:00 06/27/19 10:20 Zoloft PO 50 mg QDAY JESSICA Administration Sodium Chloride 10 ml 06/19/19 22:00 06/27/19 23:41 Sodium Chloride Flush Syringe 10 Ml IV 10 ml BID JESSICA Administration Sodium Chloride 10 ml 06/19/19 20:27 Sodium Chloride Flush Syringe 10 Ml IV PRN PRN LINE FLUSH Thiamine HCl 100 mg 06/20/19 12:00 06/27/19 10:20 Vitamin B-1 PO 100 mg QDAY JESSICA Administration Nutrition/Malnutrition Assess - Dietary Evaluation Nutrition/Malnutrition Findings: Nutrition Notes Start: 06/27/19 16:48 Freq: Status: Active Protocol: Document 06/27/19 16:48 RM (Rec: 06/27/19 16:49 RM [id number]) Nutrition Notes Need for Assessment generated from: LOS Initial or Follow up Brief Note Height 6 ft 4 in Weight 116 kg [place] Body Weight (kg) 91.81 BMI 31.1 Subjective/Other Information Screened for LOS. PO intake 80% X 4 days. Nutrition Intervention Revisit per MD consult or patient Sign Off request:
--- NOTE | 2019-06-28 08:45 | Progress Note ---
Assessment and Plan Suicide ideation Depression Chest pain, atypical Shortness of breath Mild elevated troponin ETOH abuse Hypothyroidism TSH 13.7 Sinus bradycardia pt remains asymptomatic. Amlodipine discontinued likely secondary to hypothyroidism Echocardiogram shows left ventricle systolic function of the lower limits of normal, ejection fraction 50%, otherwise no significant valvular lesions. Recommend: Continue telemetry monitoring. We will defer to Internal medicine for further management of the patient's hypothyroidism. Subjective Date of service: 06/28/19 Interval history: Patient is resting in bed and has no complaints. Sinus bradycardia on telemetry, ranging mid 40's to 50s. Repeat labs shows a TSH of 37.7. Objective Vital Signs Temp Pulse Resp BP BP Pulse Ox 06/28/19 05:15 97.5 F L 53 L 18 132/68 96 06/27/19 23:10 97.7 F 20 145/80 06/27/19 19:27 98.3 F 51 L 20 151/82 97 06/27/19 16:52 50 L 97 06/27/19 16:51 98.6 F 49 L 18 152/87 96 06/27/19 11:50 97.3 F L 47 L 18 122/79 98 - Physical Examination General: No Apparent Distress HEENT: Positive: PERRL Neck: Positive: trachea midline Cardiac: Positive: Bradycardia Lungs: Positive: Decreased Breath Sounds Neuro: Positive: Grossly Intact Extremities: Present: edema - Labs and Meds Comprehensive Metabolic Panel 06/27/19 Range/Units 14:42 Sodium 139 (137-145) mmol/L Potassium 4.6 (3.6-5.0) mmol/L Chloride 98.8 (98-107) mmol/L Carbon Dioxide 31 H (22-30) mmol/L BUN 12 (9-20) mg/dL Creatinine 1.2 (0.8-1.5) mg/dL Glucose 97 (75-100) mg/dL Calcium 10.2 (8.4-10.2) mg/dL
[2019-06-28] MEDS: ATIVAN PO PRN ×2 (10:11→22:26)
[2019-06-28] MEDS: ECOTRIN PO SCH (10:11)
[2019-06-28] MEDS: ZESTRIL PO SCH (10:11)
[2019-06-28] MEDS: BUSPAR PO SCH ×2 (10:11→22:12)
[2019-06-28] MEDS: VITAMIN B-1 PO SCH (10:11)
[2019-06-28] MEDS: PEPCID PO SCH ×2 (10:11→22:12)
[2019-06-28] MEDS: ZOLOFT PO SCH (10:12)
[2019-06-28] MEDS: SODIUM CHLORIDE FLUSH SYRINGE 10 ML IV SCH ×2 (10:13→22:13)
[2019-06-28] MEDS: FOLVITE PO SCH (10:13)
[2019-06-28] MEDS: LOVENOX SUB-Q SCH (10:13)
--- NOTE | 2019-06-28 14:00 | Progress Note ---
Subjective - Reason for Consult Consult date: 06/28/19 Reason for consult: Psychiatry Follow-up - Chief Complaint Chief complaint: "I may move away" Patient is a 48-year-old white male who presented to the hospital for SOB and chest pain. Psychiatry was consulted to see the patient for SI's and etoh abuse. Today the patient was calm during the assessment. He was more engaging. He stated that must of his issues stem from family issues. He didn't elaborate more about his family issues when asked. He denies HI's and AVH's. He would not confirm or deny SI's. He denies any side effects of his medications. Mental Status Exam - Vital signs Last Vital Signs Temp 97.5 F L 06/28/19 11:16 Pulse 52 L 06/28/19 11:16 Resp 20 06/28/19 11:16 BP 140/92 06/28/19 11:16 Pulse Ox 98 06/28/19 11:16 - Exam Narrative exam: MSE: Appearance: calm, cooperative Behavior: regular eye contact Speech: regular rate and tone Mood: "okay" Affect: flat Thought Process: circumstantial Thought Content: denies HI's and AVH's Motor Activity: lying in bed Cognition: A/O x 3 Insight: variable Judgment: variable Assessment and Plan Impression: MDD, Severe Type. Unspecified Anxiety DO. Today the patient was calm and cooperative during the assessment. DDx: Bipolar DO, Alcohol Use DO Recommendations/Plan: Continue 1013. Continue Zoloft 50 mg PO daily for depression/anxiety and Buspar 7.5 mg PO BID for anxiety. Discussed possible sucidality/medication induced warren with the patient reference Zoloft, he verbalized understanding. Dispo: The patient was referred to inpatient psy services. Will staff with Dr Douglas Martinez.
[2019-06-28] MEDS: PERCOCET 5/325 PO PRN ×2 (16:44→23:22)
[2019-06-29] MEDS ORDERED: SYNTHROID PO SCH (06:00)
--- NOTE | 2019-06-29 08:40 | Progress Note ---
Assessment and Plan Suicide ideation Depression Chest pain, atypical Shortness of breath Mild elevated troponin ETOH abuse Hypothyroidism TSH of 37.7 Sinus bradycardia pt remains asymptomatic. Amlodipine discontinued likely secondary to hypothyroidism Echocardiogram shows left ventricle systolic function of the lower limits of normal, ejection fraction 50%, otherwise no significant valvular lesions. Recommend: We will defer to Internal medicine for further management of the patient's hypothyroidism. Otherwise, conservative cardiac management. Subjective Date of service: 06/29/19 Interval history: Patient has no cardiac complaints. Objective Vital Signs Temp Pulse Resp BP Pulse Ox 06/29/19 05:13 97.4 F L 41 L 20 125/104 93 06/28/19 22:56 98.1 F 46 L 16 129/84 97 06/28/19 17:49 97.3 F L 46 L 20 165/87 99 06/28/19 11:41 98.2 F 50 L 22 135/86 97 06/28/19 11:16 97.5 F L 52 L 20 140/92 98 06/28/19 10:11 150/86 - Physical Examination General: No Apparent Distress HEENT: Positive: PERRL Neck: Positive: trachea midline Cardiac: Positive: Bradycardia Lungs: Positive: Decreased Breath Sounds Neuro: Positive: Grossly Intact Extremities: Present: edema
--- NOTE | 2019-06-29 08:51 | Progress Note ---
Subjective - Reason for Consult Consult date: 06/29/19 Reason for consult: Psychiatry Follow-up - Chief Complaint Chief complaint: "I need to get right" Patient is a 48-year-old white male who presented to the hospital for SOB and chest pain. Psychiatry was consulted to see the patient for SI's and etoh abuse. Today the patient was calm during the assessment. He stated that his coping skills isn't "adequate." He stated that he want to end his life when he have crisis. The patient does have a suicide plan when asked. He denies HI's and AVH's. He denies any side effects of his medications. Mental Status Exam - Vital signs Last Vital Signs Temp 97.4 F L 06/29/19 05:13 Pulse 41 L 06/29/19 05:13 Resp 20 06/29/19 05:13 BP 125/104 06/29/19 05:13 Pulse Ox 93 06/29/19 05:13 - Exam Narrative exam: MSE: Appearance: calm Behavior: regular eye contact Speech: regular rate and tone Mood: "depressed" Affect: flat Thought Process: circumstantial Thought Content: denies HI's and AVH's Motor Activity: lying in bed Cognition: A/O x 3 Insight: variable Judgment: variable Assessment and Plan Impression: MDD, Severe Type. Unspecified Anxiety DO. Today the patient was calm during the assessment. TSH 37.7. DDx: Bipolar DO, Alcohol Use DO Recommendations/Plan: Continue 1013. Continue Zoloft 50 mg PO daily for depre ssion/anxiety and Buspar 7.5 mg PO BID for anxiety. Discussed possible sucidality/medication induced warren with the patient reference Zoloft, he verbalized understanding. Dispo: The patient was referred to inpatient psy services. Staffed with Dr Douglas Martinez.
[2019-06-29] MEDS: PERCOCET 5/325 PO PRN ×2 (09:17→15:30)
[2019-06-29] MEDS: BUSPAR PO SCH (09:18)
[2019-06-29] MEDS: ECOTRIN PO SCH (09:19)
[2019-06-29] MEDS: ZOLOFT PO SCH (09:20)
[2019-06-29] MEDS: PEPCID PO SCH (09:20)
[2019-06-29] MEDS: ZESTRIL PO SCH (09:20)
[2019-06-29] MEDS: VITAMIN B-1 PO SCH (09:20)
[2019-06-29] MEDS: FOLVITE PO SCH (09:20)
[2019-06-29] MEDS: LOVENOX SUB-Q SCH (09:23)
--- NOTE | 2019-06-29 09:54 | Progress Note ---
Assessment and Plan Assessment and plan: Assessment and Plan Assessment and plan: Patient is a 48-year-old man with a history of bipolar disoder, MDD, alcohol and tobacco abuse who presents to the hospital with chest pain or shortness of breath, complaining of swollen left leg and rash on his legs. He also reports s uicidal ideation * Chest x-ray; atelectasis in the bases * CT head; no acute findings duplex scan of lower extremities; no DVT in either extremity * CT angiogram chest ; Negative for PE, no acute findings Chest pain Cardiology consulted, input noted atypical, suspected psychosomatic Hypertensive urgency with sinus bradycardia since oxycontin q12hr atc added on 06/24/19, HR has been lower than normal, and was subsquently discontinued Optimize blood pressure medications Hypothyroidism Continue recently adjusted Levothyroxine level of 100mcg daily. TSH severely elevated, obtain T4 free T4. Hypothyroidism may be a contribution factor to his depression Initially started on levothyroxine 50mcg/day- Med rec showed the patient was on 75mcg at home, although patient tells me that he follows at [facility] in [place] and takes 100mg at home but had stopped taken for a few weeks now because he was felling bad. will increase to 100mcg starting tomorrow and will give additional 25mcg today since pateint had been changed to 75mcg since the . I have spent 30mins educating this patient on the importance of compliance and how long it takes to achieve synergy. He verbalized understanding. Bradycardia: Asymptomatic, Cardiology evaluated. Adjustments as noted with Levothyroxine. Outpatient cardiology eval and repeat TSH/Free t4 IN 6 WEEKS. Left ankle pain Per patient, chronic, hx of nonunion, plans outaptient follow up with Ortho. Bilateral lower extremity edema/venous stasis of lower extremities Diuretics, echo pending, Dopplers negative for DVT History and physical states that patient has vasculitis; there is no evidence of vasculitis, only venous stasis Suicidal ideation/major depression On 1012, mental health consult , Per their recommendation "Continue 101. Continue Zoloft 50 mg PO daily for depression/anxiety and Buspar 7.5 mg PO BID for anxiety. Discussed possible sucidality/medication induced warren with the patient reference Zoloft, he verbalized understanding. " Alcohol dependence Preventative health counseling performed 17 minutes spent CIWA protocol, folate and thiamine DVT ppx; lovenox Disposition: continue inpatient care, just waiting inpatient psych placement still under suicide watch Opiod induced bradycardia, stopped oxycodone-since oxycontin q12hr around the clock added on 06/24/19, HR has been lower than normal, will stop Patient is medically stable for discharge and continued Psych care inpatient. History Interval history: Patient was seen and examined. Follow-up on current diagnosis of SI, which patient still says he is suicidal. No overnight events reported to me. Patient denies any chest pain, shortness breath, nausea/vomiting or severe headaches. Imaging, nursing note, chart, labs and old chart reviewed. Discussed with patient. He never the less complained of anxiety about discharge plans and ativan. He could not elaborate more Hospitalist Physical - Physical exam Narrative exam: Gen: WDWN, NAD, Awake, Alert, Orientated HEENT: NCAT, EOMI, PERRL, OP Clear Neck: supple, no adenopathy, no thyromegaly, no JVD CVS/Heart: bradycardia, normal S1S2, pulses present bilaterally Chest/Lungs: CTA B, Symmetrical chest expansion, good air entry bilaterally GI/Abdomen: soft, NTND, good bowel sounds, no guarding or rebound /Bladder: No suprapubic tenderness, no CVA or paraspinal tenderness Extermity/Skin: no c/c/e, no obvious rash, left foot bigger than right MSK: FROM x 4 Neuro: CN 2-12 grossly intact, no new focal deficits Psych: anxious - Constitutional Vitals: Temp Pulse Resp BP Pulse Ox 97.4 F L 41 L 20 125/104 93 06/29/19 05:13 06/29/19 05:13 06/29/19 05:13 06/29/19 05:13 06/29/19 05:13 General appearance: Present: no acute distress Results - Labs CBC & Chem 7: 06/19/19 21:54 06/27/19 14:42 Labs: Laboratory Last Values WBC 8.5 K/mm3 (4.5-11.0) 06/19/19 21:00 RBC 3.18 M/mm3 (3.65-5.03) L 06/19/19 21:00 Hgb 11.3 gm/dl (11.8-15.2) L 06/19/19 21:54 Hct 33.3 % (35.5-45.6) L 06/19/19 21:54 MCV 102 fl (84-94) H 06/19/19 21:00 MCH 35 pg (28-32) H 06/19/19 21:00 MCHC 34 % (32-34) 06/19/19 21:00 RDW 17.9 % (13.2-15.2) H 06/19/19 21:00 Plt Count 371 K/mm3 (140-440) 06/19/19 21:54 Lymph % (Auto) 18.7 % (13.4-35.0) 06/19/19 21:00 Wallace % (Auto) 9.8 % (0.0-7.3) H 06/19/19 21:00 Eos % (Auto) 0.3 % (0.0-4.3) 06/19/19 21:00 Baso % (Auto) 0.7 % (0.0-1.8) 06/19/19 21:00 Lymph # 1.6 K/mm3 (1.2-5.4) 06/19/19 21:00 Wallace # 0.8 K/mm3 (0.0-0.8) 06/19/19 21:00 Eos # 0.0 K/mm3 (0.0-0.4) 06/19/19 21:00 Baso # 0.1 K/mm3 (0.0-0.1) 06/19/19 21:00 Seg Neutrophils % 70.5 % (40.0-70.0) H 06/19/19 21:00 Seg Neutrophils # 6.0 K/mm3 (1.8-7.7) 06/19/19 21:00 PT 14.5 Sec. (12.2-14.9) 06/19/19 21:54 INR 1.16 (0.87-1.13) H 06/19/19 21:54 APTT 24.4 Sec. (24.2-36.6) 06/19/19 21:54 491.40 ng/mlDDU (0-234) H 06/19/19 15:50 Heparin Anti-Xa Level < 0.10 U.I./ml (0.3-0.7) L 06/20/19 08:05 Sodium 139 mmol/L (137-145) 06/27/19 14:42 Potassium 4.6 mmol/L (3.6-5.0) 06/27/19 14:42 Chloride 98.8 mmol/L (98-107) 06/27/19 14:42 Carbon Dioxide 31 mmol/L (22-30) H 06/27/19 14:42 14 mmol/L 06/27/19 14:42 BUN 12 mg/dL (9-20) 06/27/19 14:42 1.2 mg/dL (0.8-1.5) 06/27/19 14:42 Estimated GFR > 60 ml/min 06/27/19 14:42 10 % 06/27/19 14:42 Glucose 97 mg/dL (75-100) 06/27/19 14:42 Calcium 10.2 mg/dL (8.4-10.2) 06/27/19 14:42 Magnesium 2.00 mg/dL (1.7-2.3) 06/27/19 14:42 0.50 mg/dL (0.1-1.2) 06/19/19 15:50 AST 27 units/L (5-40) 06/19/19 15:50 ALT 22 units/L (7-56) 06/19/19 15:50 116 units/L (35-129) 06/19/19 15:50 175 units/L (55-170) H 06/19/19 15:50 0.066 ng/mL (0.00-0.029) H 06/20/19 05:00 NT-Pro-B Natriuret Pep 342.2 pg/mL (0-900) 06/19/19 15:50 9.0 g/dL (6.3-8.2) H 06/19/19 15:50 3.5 g/dL (3.9-5) L 06/19/19 15:50 0.6 % 06/19/19 15:50 Triglycerides 119 mg/dL (2-149) 06/19/19 15:50 Cholesterol 118 mg/dL (50-199) 06/19/19 15:50 85 mg/dL (50-130) 06/19/19 15:50 28 mg/dL (40-59) L 06/19/19 15:50 4.21 % 06/19/19 15:50 TSH 37.730 mlU/mL (0.270-4.200) H 06/28/19 04:35 Free T4 0.22 ng/dL (0.76-1.46) L 06/20/19 14:48 1.9 ug/dL (4.0-12.0) L 06/20/19 14:48 Yellow (Yellow) 06/19/19 18:10 Slightly-cloudy (Clear) 06/19/19 18:10 5.0 (5.0-7.0) 06/19/19 18:10 Ur Specific [place] 1.015 (1.003-1.030) 06/19/19 18:10 30 mg/dl mg/dL (Negative) 06/19/19 18:10 Neg mg/dL (Negative) 06/19/19 18:10 Neg mg/dL (Negative) 06/19/19 18:10 Lg (Negative) 06/19/19 18:10 Neg (Negative) 06/19/19 18:10 Neg (Negative) 06/19/19 18:10 < 2.0 mg/dL (<2.0) 06/19/19 18:10 Ur Leukocyte Esterase Neg (Negative) 06/19/19 18:10 6.0 /HPF (0.0-6.0) 06/19/19 18:10 15.0 /HPF (0.0-6.0) 06/19/19 18:10 1+ /HPF (Negative) 06/19/19 18:10 Salicylates < 0.3 mg/dL (2.8-20.0) L 06/19/19 15:50 Presumptive negative 06/19/19 18:10 Presumptive negative 06/19/19 18:10 Acetaminophen < 5.0 ug/mL (10.0-30.0) L 06/19/19 15:50 Ur Barbiturates Screen Presumptive negative 06/19/19 18:10 Ur Phencyclidine Scrn Presumptive negative 06/19/19 18:10 Ur Amphetamines Screen Presumptive negative 06/19/19 18:10 U Benzodiazepines Scrn Presumptive positive 06/19/19 18:10 Presumptive negative 06/19/19 18:10 U Marijuana (THC) Screen Presumptive negative 06/19/19 18:10 Disclamer 06/19/19 18:10 Plasma/Serum Alcohol < 0.01 % (0-0.07) 06/19/19 15:50 Active Medications - Current Medications Current Medications: Generic Name Dose Route Start Last Admin Trade Name Freq PRN Reason Stop Dose Admin Acetaminophen 650 mg 06/19/19 20:27 Tylenol PO Q4H PRN Pain MILD(1-3)/Fever >100.5/PRAJAPATI Aspirin 325 mg 06/20/19 10:00 06/29/19 09:19 Ecotrin PO 325 mg QDAY JESSICA Administration Atorvastatin Calcium 40 mg 06/19/19 22:00 06/28/19 22:12 Lipitor PO 40 mg QHS JESSICA Administration Buspirone HCl 7.5 mg 06/21/19 13:00 06/29/19 09:18 Buspar PO 7.5 mg BID JESSICA Administration Enoxaparin Sodium 40 mg 06/20/19 10:00 06/29/19 09:23 Lovenox SUB-Q 40 mg QDAY JESSICA Administration Famotidine 20 mg 06/21/19 22:00 06/29/19 09:20 Pepcid PO 20 mg BID JESSICA Administration Folic Acid 1 mg 06/20/19 12:00 06/29/19 09:20 Folvite PO 1 mg QDAY JESSICA Administration Levothyroxine Sodium 100 mcg 06/29/19 06:00 06/29/19 06:21 Synthroid PO 100 mcg DAILY@0600 JESSICA Administration Lisinopril 20 mg 06/28/19 10:00 06/29/19 09:20 Zestril PO 20 mg QDAY JESSICA Administration Lorazepam 2 mg 06/19/19 21:18 06/24/19 20:21 Ativan IV 2 mg Q1H PRN Administration CIWA-Ar 8-15 Lorazepam 4 mg 06/19/19 21:18 Ativan IV Q1H PRN CIWA-Ar 16-25 Lorazepam 4 mg 06/19/19 21:18 Ativan IV Q15MIN PRN CIWA-Ar >25 Lorazepam 0.5 mg 06/27/19 18:00 06/28/19 22:26 Ativan PO 0.5 mg BID PRN Administration Agitation Meclizine HCl 25 mg 06/21/19 23:11 Antivert PO TID PRN Vertigo Ondansetron HCl 4 mg 06/19/19 20:27 Zofran IV Q8H PRN Nausea And Vomiting Oxycodone/Acetaminophen 1 tab 06/19/19 20:27 06/29/19 09:17 Percocet 5/325 PO 1 tab Q6H PRN Administration Pain, Moderate (4-6) Sertraline HCl 50 mg 06/21/19 13:00 06/29/19 09:20 Zoloft PO 50 mg QDAY JESSICA Administration Sodium Chloride 10 ml 06/19/19 22:00 06/28/19 22:13 Sodium Chloride Flush Syringe 10 Ml IV 10 ml BID JESSICA Administration Sodium Chloride 10 ml 06/19/19 20:27 Sodium Chloride Flush Syringe 10 Ml IV PRN PRN LINE FLUSH Thiamine HCl 100 mg 06/20/19 12:00 06/29/19 09:20 Vitamin B-1 PO 100 mg QDAY JESSICA Administration Nutrition/Malnutrition Assess - Dietary Evaluation Nutrition/Malnutrition Findings: Nutrition Notes Start: 06/27/19 16: 48 Freq: Status: Active Protocol: Document 06/27/19 16:48 RM (Rec: 06/27/19 16:49 RM [email or web address]) Nutrition Notes Need for Assessment generated from: LOS Initial or Follow up Brief Note Height 6 ft 4 in Weight 116 kg [place] Body Weight (kg) 91.81 BMI 31.1 Subjective/Other Information Screened for LOS. PO intake 80% X 4 days. Nutrition Intervention Revisit per MD consult or patient Sign Off request:
[2019-06-29] MEDS: ATIVAN PO PRN (09:57)
[2019-06-29] MEDS: ATIVAN IV PRN (15:31)
--- NOTE | 2019-06-29 16:20 | Discharge Summary ---
Providers - Providers Date of Admission: 06/19/19 20:28 Attending physician: CHRIS INIGUEZ MD 06/19/19 Consult to Cardiac Rehabilitation [CONS] Routine Reason For Exam: Phase I 06/19/19 18:33 Consult to Mental Health [CONS] Stat Reason For Exam: SI Place consult to:: Mental Health staffing associate Notified:: Yeni 06/20/19 05:53 psychiatry consult [Consult to Mental Health] [CONS] Routine Reason For Exam: SI Place consult to:: PSYCH Notified:: herminia Phone number called:: [phone] Was contact made?: Yes If yes, spoke with:: herminia Time called:: 08:21 06/27/19 13:56 Consult to Physician [CONS] Routine Comment: Consulting Provider: BERENICE YEAGER Physician Instructions: Reason For Exam: Bradycardia, worsening [facility] Reason for admission: syncope Condition: Stable Hospital course: Patient is a 48-year-old man with a history of bipolar disoder, MDD, alcohol and tobacco abuse who presents to the hospital with chest pain or shortness of breath, complaining of swollen left leg and rash on his legs. He also reports suicidal ideation * Chest x-ray; atelectasis in the bases * CT head; no acute findings duplex scan of lower extremities; no DVT in either extremity * CT angiogram chest ; Negative for PE, no acute findings Chest pain Cardiology consulted, input noted atypical, suspected psychosomatic Hypertensive urgency with sinus bradycardia since oxycontin q12hr atc added on 06/24/19, HR has been lower than normal, and was subsquently discontinued Optimize blood pressure medications Hypothyroidism Continue recently adjusted Levothyroxine level of 100mcg daily. TSH severely elevated, obtain T4 free T4. Hypothyroidism may be a contribution factor to his depression Initially started on levothyroxine 50mcg/day- Med rec showed the patient was on 75mcg at home, although patient tells me that he follows at [facility] in [place] and takes 100mg at home but had stopped taken for a few weeks now because he was felling bad. will increase to 100mcg starting tomorrow and will give additional 25mcg today since pateint had been changed to 75mcg since the . I have spent 30mins educating this patient on the importance of compliance and how long it takes to achieve synergy. He verbalized understanding. Bradycardia: Asymptomatic, Cardiology evaluated. Adjustments as noted with Levothyroxine. Outpatient cardiology eval and repeat TSH/Free t4 IN 6 WEEKS. Near syncope: psychsomatic per cardiology. Work up negative at this time Left ankle pain Per patient, chronic, hx of nonunion, plans outaptient follow up with Ortho. Bilateral lower extremity edema/venous stasis of lower extremities Diuretics, echo pending, Dopplers negative for DVT History and physical states that patient has vasculitis; there is no evidence of vasculitis, only venous stasis Suicidal ideation/major depression On 1012, mental health consult , Per their recommendation "Continue 1012. Continue Zoloft 50 mg PO daily for depression/anxiety and Buspar 7.5 mg PO BID for anxiety. Discussed possible sucidality/medication induced warren with the patient reference Zoloft, he verbalized understanding. " Type 2 LA: Non cardiac per Cardiology. Alcohol dependence Preventative health counseling performed 17 minutes spent CIWA protocol, folate and thiamine DVT ppx; lovenox Disposition: continue inpatient care, just waiting inpatient psych placement still under suicide watch Opiod induced bradycardia, stopped oxycodone-since oxycontin q12hr around the clock added on 06/24/19, HR has been lower than normal, will stop Patient is medically stable for discharge and continued Psych care inpatient. Disposition: DC/TX-65 PSY HOSP/PSY UNIT Time spent for discharge: 35 mins Exam - Constitutional Vitals: Temp Pulse Resp BP Pulse Ox 98.2 F 48 L 20 141/85 97 06/29/19 11:44 06/29/19 11:44 06/29/19 11:44 06/29/19 11:44 06/29/19 11:44 Plan Follow up with: MIYA ADAMS MD [Staff Physician] - 7 Days HERMINIA LACY MD [Staff Physician] - 7 Days MIAMI MINERVA GRAHAM MD [Primary Care Provider] - 3-5 Days Prescriptions: AtorvaSTATin [Lipitor] 40 mg PO QHS #30 tablet busPIRone [Buspar] 7.5 mg PO BID #60 tablet Levothyroxine [Synthroid] 100 mcg PO DAILY@0600 #30 tablet Thiamine [Vitamin B-1] 100 mg PO QDAY #100 tablet Lisinopril [Zestril TAB] 20 mg PO QDAY #30 tablet Sertraline [Zoloft] 50 mg PO QDAY #30 tablet
[2019-06-29 17:50] VITALS: BP 151/97
== END 2019-06-29 19:00 | DRG 281 ==
LOC: ED 14:35 → 4A 20:28 → 3A 06-24 22:37
PROVIDERS: ADMIT Internal Medicine; ATTEND Internal Medicine
DX: I16.0 Hypertensive urgency (principal); I21.A1 Myocardial infarction type 2; F10.288 Alcohol dependence with other alcohol-induced disorder; I11.0 Hypertensive heart disease with heart failure; I50.9 Heart failure, unspecified; E05.90 Thyrotoxicosis, unspecified without thyrotoxic crisis or storm; I87.8 Other specified disorders of veins; R07.89 Other chest pain; R00.1 Bradycardia, unspecified; F32.9 Major depressive disorder, single episode, unspecified; Y90.9 Presence of alcohol in blood, level not specified; Z60.2 Problems related to living alone; Z79.01 Long term (current) use of anticoagulants; Z79.899 Other long term (current) drug therapy
CPT/HCPCS: 36415; 70450; 71045; 71275; 80048; 80053; 80061; 80307; 80320; 81001; 82550; 83735; 83880; 84436; 84439; 84443; 84484; 85014; 85018; 85025; 85049; 85379; 85520; 85610; 85730; 93005; 93010; 93306; 93970; 99406; G0378; A9270-GY; G0480; J1644; J1650; J1940; J2060; Q9967

== ENCOUNTER 2019-10-09 19:40 | Emergency (ER) | payer SELFPAY ==
--- NOTE | 2019-10-09 20:20 | Event Note ---
ED Screening Note Date of service: 10/09/19 Time: 20:15 ED Screening Note: This initial assessment/diagnostic orders/clinical plan/treatment(s) is/are subject to change based on patients health status, clinical progression and re- assessment by fellow clinical providers in the ED. Further treatment and workup at subsequent clinical providers discretion. Patient/guardian urged not to elope from the ED as their condition may be serious if not clinically assessed and managed. 49 yo homeless male. c/o not feeling well. He reports being out of his Hissop and Prozac. Not taken for about one month. He denies suicidal ideation. His last alcohol drink was few hours ago. Denies any drug use . Initial orders include: Medical screening work up ordered
[2019-10-09 21:23] LABS: Amphetamine Screen,Urine PRESUMPTIVE NEGATIVE; Benzodiazepines Screen,Urine PRESUMPTIVE NEGATIVE; Cannabinoid Screen,Urine PRESUMPTIVE NEGATIVE; Cocaine Screen,Urine PRESUMPTIVE NEGATIVE; Methadone Screen,Urine PRESUMPTIVE NEGATIVE; Opiate Screen,Urine PRESUMPTIVE NEGATIVE
[2019-10-09 21:42] LABS: Bacteria,Urine 2+ /HPF (Negative); Bilirubin,Urine NEG (Negative); Blood,Urine LG (Negative); Color,Urine Yellow (Yellow); Protein,Urine <15 mg/dL mg/dL (Negative); Urobilinogen,Urine < 2.0 mg/dL (<2.0)
--- NOTE | 2019-10-09 22:04 | Emergency Department Report ---
ED Psych HPI - General Chief Complaint: Psych Stated Complaint: SOB, NERVES, ALCOHOL ADDICTION, SUICIDAL THOUGHTS Time Seen by Provider: 10/09/19 20:13 Source: patient Mode of arrival: Ambulatory - History of Present Illness Initial Comments: Patient is 49 years old male with history of bipolar disorder, hypertension and congestive heart failure. Patient also have history of seizure. History of chronic alcohol abuse. Patient presented to the ER stating that he has been elvia y depressed. Patient stated that he is thinking about hanging himself. Patient stated that he was recently discharged from inpatient psychiatric facility and he was given Prozac. Patient stated that he was doing well until he ran out of the medicine and he is unable to afford the medicine. Patient denied any chest pain or shortness of breath. Patient also denied any fever or chills. No homic idal ideation. Patient stated that he is talking to himself a lot and asking questions and feeling that he does not need to live anymore because he has nothing to live for. MD Complaint: suicidal ideation, feels depressed Associated Psychiatric Symptoms: depression, suicidal ideation, racing thoughts History of same: Yes Quality: constant Context: recent alcohol abuse, not taking psychiatric Associated Symptoms: denies other symptoms Treatments Prior to Arrival: none If Self Harm: admits thoughts of, self-inflicted trauma - Related Data Home Medications Medication Instructions Recorded Confirmed Last Taken ALPRAZolam [Xanax TAB] 0.5 mg PO BID PRN 09/23/16 10/09/19 Unknown Furosemide [Lasix TAB] 40 mg PO QDAY 10/09/19 10/09/19 Unknown Multivitamin [Multiple Vitamins] 1 tab PO QDAY 10/09/19 10/09/19 Unknown Tamsulosin [Flomax] 0.4 mg PO QDAY 10/09/19 10/09/19 Unknown Terazosin HCl 2 mg PO QHS 10/09/19 10/09/19 Unknown Trazodone HCl 100 mg PO QHS 10/09/19 10/09/19 Unknown busPIRone [Buspar] 30 mg PO QHS 10/09/19 10/09/19 Unknown carvediloL [Coreg] 6.25 mg PO BID 10/09/19 10/09/19 Unknown Previous Rx's Medication Instructions Recorded Last Taken Type Folic Acid 1 tab PO QDAY #30 tab 09/25/16 Unknown Rx Levothyroxine [Synthroid] 100 mcg PO DAILY@0600 #30 tablet 06/28/19 Unknown Rx Allergies Allergy/AdvReac Type Severity Reaction Status Date / Time No Known Allergies Allergy Verified 09/23/16 02:31 ED Review of Systems ROS: Stated complaint: SOB, NERVES, ALCOHOL ADDICTION, SUICIDAL THOUGHTS Other details as noted in HPI Comment: All other systems reviewed and negative Constitutional: denies: chills, fever Respiratory: denies: cough, shortness of breath, SOB with exertion Cardiovascular: denies: chest pain, palpitations Gastrointestinal: denies: abdominal pain, nausea, vomiting, diarrhea, constipation, hematemesis, hematochezia Musculoskeletal: denies: back pain Neurological: denies: headache, weakness, numbness, paresthesias, confusion, abnormal gait Psychiatric: depression, suicidal thoughts. denies: auditory hallucinations, visual hallucinations, homicidal thoughts ED Past Medical Hx - Past Medical History Previous Medical History?: Yes Hx Hypertension: Yes Hx Heart Attack/AMI: No Hx Congestive Heart Failure: Yes Hx Diabetes: No Hx Deep Vein Thrombosis: No Hx Pulmonary Embolism: No Hx Liver Disease: Yes Hx Seizures: Yes Hx Psychiatric Treatment: Yes (bipolar, anxiety) Hx Asthma: No Hx COPD: No Hx Tuberculosis: No Hx HIV: No Additional medical history: THYROID, Hernia, ETOH, EF 40%. 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 CHEST TUBE LEFT CHEST X 3 DAYS PT STATES - Social History Smoking Status: Current Every Day Smoker Substance Use Type: Alcohol - Medications Home Medications: Home Medications Medication Instructions Recorded Confirmed Last Taken Type ALPRAZolam [Xanax TAB] 0.5 mg PO BID PRN 09/23/16 10/09/19 Unknown History Folic Acid 1 tab PO QDAY #30 tab 09/25/16 10/09/19 Unknown Rx Levothyroxine [Synthroid] 100 mcg PO DAILY@0600 #30 tablet 06/28/19 10/09/19 Unknown Rx Furosemide [Lasix TAB] 40 mg PO QDAY 10/09/19 10/09/19 Unknown History Multivitamin [Multiple Vitamins] 1 tab PO QDAY 10/09/19 10/09/19 Unknown History Tamsulosin [Flomax] 0.4 mg PO QDAY 10/09/19 10/09/19 Unknown History Terazosin HCl 2 mg PO QHS 10/09/19 10/09/19 Unknown History Trazodone HCl 100 mg PO QHS 10/09/19 10/09/19 Unknown History busPIRone [Buspar] 30 mg PO QHS 10/09/19 10/09/19 Unknown History carvediloL [Coreg] 6.25 mg PO BID 10/09/19 10/09/19 Unknown History ED Physical Exam - General Limitations: No Limitations General appearance: alert, in no apparent distress, other (depressed) - Head Head exam: Present: atraumatic, normocephalic, normal inspection - Eye Eye exam: Present: normal appearance - ENT ENT exam: Present: normal exam, normal orophraynx, mucous membranes moist - Neck Neck exam: Present: normal inspection, full ROM. Absent: tenderness, meningismus, lymphadenopathy, thyromegaly - Respiratory Respiratory exam: Present: normal lung sounds bilaterally - Cardiovascular Cardiovascular Exam: Present: regular rate, normal rhythm, normal heart sounds - GI/Abdominal GI/Abdominal exam: Present: soft, normal bowel sounds. Absent: distended, tenderness, guarding, rebound, rigid, organomegaly, mass, bruit, pulsatile mass, hernia - Extremities Exam Extremities exam: Present: normal inspection, full ROM, normal capillary refill. Absent: tenderness, pedal edema, joint swelling, calf tenderness - Back Exam Back exam: Present: normal inspection, full ROM. Absent: CVA tenderness (R), CVA tenderness (L) - Neurological Exam Neurological exam: Present: alert, oriented X3, CN II-XII intact, normal gait, reflexes normal - Psychiatric Psychiatric exam: Present: depressed, suicidal ideation. Absent: agitated, anxious, flat affect, manic, homicidal ideation - Skin Skin exam: Present: warm, intact, normal color ED Course Vital Signs 10/09/19 10/09/19 10/10/19 19:46 20:12 01:01 Temperature 97.7 F 97.9 F 97.9 F Pulse Rate 62 61 77 Respiratory 18 18 16 Rate Blood Pressure 143/70 143/70 Blood Pressure 161/91 [Left] O2 Sat by Pulse 100 99 98 Oximetry 10/10/19 10/10/19 10/10/19 07:00 11:00 13:00 Temperature 97.7 F 97.9 F Pulse Rate 60 60 49 L Respiratory 18 18 Rate Blood Pressure 147/82 Blood Pressure 147/82 147/69 [Left] O2 Sat by Pulse 99 96 Oximetry 10/10/19 10/10/19 10/11/19 19:30 22:51 02:00 Temperature 97.4 F L 98.8 F Pulse Rate 51 L 54 L 52 L Respiratory 18 18 Rate Blood Pressure 169/95 Blood Pressure 148/92 154/81 [Left] O2 Sat by Pulse 99 98 Oximetry 10/11/19 10/11/19 10/11/19 08:04 09:57 14:08 Temperature 98.1 F 97.8 F Pulse Rate 62 60 92 H Respiratory Rate Blood Pressure Blood Pressure 139/81 140/76 162/86 [Left] O2 Sat by Pulse 98 96 98 Oximetry 10/11/19 10/11/19 10/11/19 16:00 18:45 20:20 Temperature 98.0 F 97.9 F Pulse Rate 62 60 56 L Respiratory 20 Rate Blood Pressure 140/76 Blood Pressure 136/79 139/79 [Left] O2 Sat by Pulse 98 97 Oximetry 10/12/19 10/12/19 10/12/19 01:05 08:00 11:27 Temperature 98.0 F 98.0 F Pulse Rate 50 L 47 L 47 L Respiratory 20 18 Rate Blood Pressure 123/76 Blood Pressure 138/64 123/76 [Left] O2 Sat by Pulse 97 96 Oximetry 10/12/19 13:00 Temperature 97.7 F Pulse Rate 58 L Respiratory 20 Rate Blood Pressure Blood Pressure 134/71 [Left] O2 Sat by Pulse 98 Oximetry ED Medical Decision Making - Lab Data Result diagrams: 10/09/19 21:10 10/09/19 21:10 Critical care attestation.: If time is entered above; I have spent that time in minutes in the direct care of this critically ill patient, excluding procedure time. ED Disposition Clinical Impression: Suicide ideation, Depression Disposition: DC/TX-65 PSY HOSP/PSY UNIT Is pt being admited?: No Condition: Stable Referrals: PRIMARY CARE, [Primary Care Provider] - 3-5 Days
[2019-10-09 22:17] LABS: Basophils # (Auto) 0.1 K/mm3 (0.0-0.1); Basophils % (Auto) 1.5 % (0.0-1.8); Eosinophils # (Auto) 0.1 K/mm3 (0.0-0.4); Eosinophils % (Auto) 1.5 % (0.0-4.3); Hematocrit 34.8 % (35.5-45.6); Hemoglobin 11.7 gm/dl (11.8-15.2); Lymphocytes # (Auto) 1.6 K/mm3 (1.2-5.4); Lymphocytes % (Auto) 31.7 % (13.4-35.0); Mean Corpuscular HGB Conc 34 % (32-34); Mean Corpuscular Volume 98 fl (84-94); Monocytes # (Auto) 0.5 K/mm3 (0.0-0.8); Monocytes % (Auto) 8.9 % (0.0-7.3); Platelet Count 233 K/mm3 (140-440); Red Blood Count 3.56 M/mm3 (3.65-5.03); Red Cell Distribution Width 16.8 % (13.2-15.2)
[2019-10-09] MEDS ORDERED: levoFLOXacin 750 MG TAB PO ONE (22:24)
[2019-10-09] MEDS ORDERED: LORazepam 2 MG/ML VIAL IV PRN ×2 (22:34)
[2019-10-09] MEDS ORDERED: levoFLOXacin 500 MG TAB PO ONE (22:34)
[2019-10-09 22:43] LABS: Alanine Aminotransferase 14 units/L (7-56); Albumin 4.5 g/dL (3.9-5); BUN/Creatinine Ratio 11; Blood Urea Nitrogen 9 mg/dL (9-20); Calcium 9.4 mg/dL (8.4-10.2); Hemolysis Index 5
[2019-10-10] MEDS: carvediloL 6.25 MG TAB PO SCH ×3 (01:35→22:51)
[2019-10-10] MEDS: LORazepam 2 MG/ML VIAL IV PRN ×2 (02:07→20:15)
--- NOTE | 2019-10-10 08:34 | Consultation ---
History of Present Illness - Reason for Consult Consult date: 10/10/19 Reason for consult: Mental Health Evaluation Requesting physician: KEYANNA MERAZ - Chief Complaint Chief complaint: "I'm so depressed" - History of Present Psychiatric Illness 49 y.o. white male who presented to the ER for SI's and etoh. This patient is known to me. Today the patient was calm during the assessment. He stated that he is having family issues at this time. He stated that his depression have been exacerbated so he feel suicidal, but would not confirm or deny a suicide plan when asked. He stated that his alcohol consumption (etoh) have increased the past several weeks. He rate his depression 7/10, with 10 being the worse. He denies HI's and AVH's. He denies erratic sleep and a poor appetite. He denies recreational drug use. Medications and Allergies Allergies Allergy/AdvReac Type Severity Reaction Status Date / Time No Known Allergies Allergy Verified 09/23/16 02:31 Home Medications Medication Instructions Recorded Confirmed Last Taken Type ALPRAZolam [Xanax TAB] 0.5 mg PO BID PRN 09/23/16 10/09/19 Unknown History Folic Acid 1 tab PO QDAY #30 tab 09/25/16 10/09/19 Unknown Rx Levothyroxine [Synthroid] 100 mcg PO DAILY@0600 #30 tablet 06/28/19 10/09/19 Unknown Rx Furosemide [Lasix TAB] 40 mg PO QDAY 10/09/19 10/09/19 Unknown History Multivitamin [Multiple Vitamins] 1 tab PO QDAY 10/09/19 10/09/19 Unknown History Tamsulosin [Flomax] 0.4 mg PO QDAY 10/09/19 10/09/19 Unknown History Terazosin HCl 2 mg PO QHS 10/09/19 10/09/19 Unknown History Trazodone HCl 100 mg PO QHS 10/09/19 10/09/19 Unknown History busPIRone [Buspar] 30 mg PO QHS 10/09/19 10/09/19 Unknown History carvediloL [Coreg] 6.25 mg PO BID 10/09/19 10/09/19 Unknown History Active Meds: Active Medications Carvedilol (Coreg) 6.25 mg PO BID JESSICA Last Admin: 10/10/19 01:35 Dose: Not Given Documented by: Furosemide (Lasix) 40 mg PO QDAY JESSICA Levothyroxine Sodium (Synthroid) 100 mcg PO DAILY@0600 JESSICA Lorazepam (Ativan) 2 mg IV Q1H PRN PRN Reason: CIWA-Ar 8-15 Last Admin: 10/10/19 02:07 Dose: 2 mg Documented by: Lorazepam (Ativan) 4 mg IV Q1H PRN PRN Reason: CIWA-Ar 16-25 Lorazepam (Ativan) 4 mg IV Q15MIN PRN PRN Reason: CIWA-Ar >25 Past psychiatric history - Past Medical History Past Medical History: heart failure Past Surgical History: No surgical history - past Psychiatric treatment and history psychiatric treatment history: Inpatient psy services in the past. Denies a fam psy hx. - Social History Social history: lives with family Mental Status Exam - Vital signs Last Vital Signs Temp 97.9 F 10/10/19 01:01 Pulse 77 10/10/19 01:01 Resp 16 10/10/19 01:01 BP 161/91 10/10/19 01:01 Pulse Ox 98 10/10/19 01:01 - Exam Narrative exam: MSE: Appearance: calm Behavior: poor eye contact Speech: regular rate and tone Mood: "depressed" Affect: flat Thought Process: circumstantial Thought Content: denies HI's and AVH's Motor Activity: lying in bed Cognition: A/O x 3 Insight: variable Judgment: poor Results Result Diagrams: 10/09/19 21:10 10/09/19 21:10 Abnormal lab results 10/09/19 10/09/19 10/09/19 Range/Units 21:05 21:10 21:10 RBC 3.56 L (3.65-5.03) M/mm3 Hgb 11.7 L (11.8-15.2) gm/dl Hct 34.8 L (35.5-45.6) % MCV 98 H (84-94) fl MCH 33 H (28-32) pg RDW 16.8 H (13.2-15.2) % [place] % (Auto) 8.9 H (0.0-7.3) % Sodium 146 H (137-145) mmol/L Total Protein 8.6 H (6.3-8.2) g/dL TSH (0.270-4.200) mlU/mL Urine WBC (Auto) 74.0 H (0.0-6.0) /HPF Salicylates (2.8-20.0) mg/dL Acetaminophen (10.0-30.0) ug/mL Plasma/Serum Alcohol (0-0.07) % 10/09/19 10/09/19 10/09/19 Range/Units 21:10 21:10 21:10 RBC (3.65-5.03) M/mm3 Hgb (11.8-15.2) gm/dl Hct (35.5-45.6) % MCV (84-94) fl MCH (28-32) pg RDW (13.2-15.2) % [place] % (Auto) (0.0-7.3) % Sodium (137-145) mmol/L Total Protein (6.3-8.2) g/dL TSH 4.880 H (0.270-4.200) mlU/mL Urine WBC (Auto) (0.0-6.0) /HPF Salicylates < 0.3 L (2.8-20.0) mg/dL Acetaminophen < 5.0 L (10.0-30.0) ug/mL Plasma/Serum Alcohol (0-0.07) % 10/09/19 Range/Units 21:10 RBC (3.65-5.03) M/mm3 Hgb (11.8-15.2) gm/dl Hct (35.5-45.6) % MCV (84-94) fl MCH (28-32) pg RDW (13.2-15.2) % [place] % (Auto) (0.0-7.3) % Sodium (137-145) mmol/L Total Protein (6.3-8.2) g/dL TSH (0.270-4.200) mlU/mL Urine WBC (Auto) (0.0-6.0) /HPF Salicylates (2.8-20.0) mg/dL Acetaminophen (10.0-30.0) ug/mL Plasma/Serum Alcohol 0.18 H (0-0.07) % All other labs normal. Assessment and Plan Assessment and plan: Impression: MDD, Severe Type. Alcohol Use DO. Today the patient was calm during the assessment. DDx: Bipolar DO, Alcohol Use DO Recommendations/Plan: Continue 1013 and CIWA. Start Prozac 20 mg PO daily for depression. Discussed possible sucidality/medication induced warren with the p atient reference prozac, he verbalized understanding. Dispo: The patient was referred to inpatient psy services. Staffed with Dr Douglas Martinez.
[2019-10-10] MEDS: LEVOTHYROXINE 100 MCG TAB PO SCH (08:35)
[2019-10-10] MEDS: FLUoxetine 20 MG CAP PO SCH (11:00)
[2019-10-10] MEDS: FUROSEMIDE 40 MG TAB PO SCH (11:00)
[2019-10-11] MEDS: LEVOTHYROXINE 100 MCG TAB PO SCH (06:06)
--- NOTE | 2019-10-11 09:06 | Progress Note ---
Subjective - Reason for Consult Consult date: 10/11/19 Reason for consult: Psychiatry Follow-up - Chief Complaint Chief complaint: "I am still not doing well" 49 y.o. white male who presented to the ER for SI's and etoh. This patient is known to me. Today the patient was calm during the assessment. He continue to endorse SI's without a plan. He is adamant that his issues stem from problems with his family. He denies HI's and AVH's. He denies any side effects from his medication. Mental Status Exam - Vital signs Last Vital Signs Temp 98.1 F 10/11/19 08:04 Pulse 62 10/11/19 08:04 Resp 18 10/11/19 02:00 BP 139/81 10/11/19 08:04 Pulse Ox 98 10/11/19 08:04 - Exam Narrative exam: MSE: Appearance: calm Behavior: poor eye contact Speech: regular rate and tone Mood: "still depressed" Affect: flat Thought Process: circumstantial Thought Content: denies HI's and AVH's Motor Activity: lying in bed Cognition: A/O x 3 Insight: variable Judgment: poor Assessment and Plan Impression: MDD, Severe Type. Alcohol Use DO. Today the patient was calm during the assessment. The patient still endorsing SI's. DDx: Bipolar DO, Alcohol Use DO Recommendations/Plan: Continue 1013, CIWA, and Prozac 20 mg PO daily for depression. Discussed possible sucidality/medication induced warren with the patient reference Prozac, he verbalized understanding. Line of sight ordered for safety. Dispo: The patient was referred to inpatient psy services. Staffed with Dr Douglas Martinez.
[2019-10-11] MEDS ORDERED: ONDANSETRON 4 MG ODT TAB PO ONE (10:05)
[2019-10-11] MEDS: FLUoxetine 20 MG CAP PO SCH (10:13)
[2019-10-11] MEDS: FUROSEMIDE 40 MG TAB PO SCH (10:13)
[2019-10-11] MEDS ORDERED: ACETAMINOPHEN 500 MG TAB PO ONE (18:38)
[2019-10-11] MEDS: carvediloL 6.25 MG TAB PO SCH ×2 (18:45→22:19)
[2019-10-12] MEDS: LORazepam 2 MG/ML VIAL IV PRN (00:05)
[2019-10-12] MEDS: LEVOTHYROXINE 100 MCG TAB PO SCH (06:38)
--- NOTE | 2019-10-12 09:54 | Progress Note ---
Subjective - Reason for Consult Consult date: 10/12/19 Reason for consult: Psychiatry follow up - Chief Complaint Chief complaint: History of Present Illness: The patient is a 49 year old unemployed male with history of Bipolar disorder, PTSD and suicidal tendencies. The patient was having thoughts of suicide. The patient stated that he was being worked too hard, so hard to the point he couldn't get out of bed.The patient had thoughts of jumping off a bridge, but wanted help so he voluntarily came to the hospital with hopes of getting into [facility]. The patient has been hearing voices asking him "Why does he put up with this shit" The patients states that has had multiple instances when he has had thoughts of suicide but denies being suicidal at the time of this interview. He denies homicidal thoughts, denies hallucinations and no delusions elicited. He admits to drinking alcohol heavily and is interested in Substance abuse treatment. He denies withdrawal symptoms. PAST PSYCHIATRIC HISTORY: Diagnoses: Suicide attempts or Self-harm behavior: 5 Separate occasion Prior psychiatric hospitalizations: The patient states he has been hospitalized 3 times Substance Abuse history: Alcohol Alcohol The patient states he drank a fifth a day Tobacco The patient states he smokes a pack a day. Previous psychiatric medications tried: [place], Prozac Family Psychiatric History: Patient reports that his whole family has psychiatric issues. Social History Living Arrangements: The patient lives alone. Employment Status: Unemployed Access to guns/weapons: No Education: Highest Grade Completed 10th Grade History of Abuse: NO Legal troubles: NO Mental Status Exam - Vital signs Last Vital Signs Temp 98.0 F 10/12/19 08:00 Pulse 47 L 10/12/19 08:00 Resp 18 10/12/19 08:00 BP 123/76 10/12/19 08:00 Pulse Ox 96 10/12/19 08:00 - Exam Orientation: time, place, person Affect: normal Mood: congruent with affect Thought Process: Intact Perceptions: none Speech: normal rate and pattern Concentration: focused Motor activity: normal Level of consciousness: alert Memory: Intact Sleep Symptoms: None Interaction: cooperative Assessment and Plan - Patient Problems (1) Alcohol use disorder, severe, dependence Current Visit: Yes Status: Acute Plan to address problem: Continue 1013, CIWA, Prozac 20 mg PO daily for depression. Discontinue IV Lorazepam and start Librium 25mg bid and 25mg q8h prn for alcohol withdrawal Discontinue LOS as patient denies being suicidal Start Depakote DR 250mg tid for mood Trazodone 50mg qhs prn insomnia Provide resources for Substance Abuse treatment and make referrals. (2) Alcohol-induced mood disorder with depressive symptoms Current Visit: Yes Status: Acute Plan to address problem: As above
[2019-10-12] MEDS: FLUoxetine 20 MG CAP PO SCH (10:14)
[2019-10-12] MEDS: FUROSEMIDE 40 MG TAB PO SCH (10:14)
[2019-10-12] MEDS: carvediloL 6.25 MG TAB PO SCH (11:27)
[2019-10-12] MEDS ORDERED: chlordiazePOXIDE 25 MG CAP PO PRN (14:01)
[2019-10-12] MEDS ORDERED: traZODone 50 MG TAB PO PRN (14:04)
[2019-10-12] MEDS ORDERED: chlordiazePOXIDE 25 MG CAP PO ONE (15:00)
[2019-10-12] MEDS ORDERED: DIVALPROEX DR 250 MG TAB PO ONE (15:02)
[2019-10-12 15:23] VITALS: BP 134/71
== END 2019-10-12 15:07 ==
LOC: EEVIPCON 19:40 → ED 19:40
DX: F32.9 Major depressive disorder, single episode, unspecified (principal); I11.0 Hypertensive heart disease with heart failure; I50.9 Heart failure, unspecified; F41.9 Anxiety disorder, unspecified; F17.200 Nicotine dependence, unspecified, uncomplicated; F10.10 Alcohol abuse, uncomplicated; Z79.899 Other long term (current) drug therapy; Z98.890 Other specified postprocedural states
CPT/HCPCS: 36415; 80053; 80178; 80307; 81001; 84443; 85025; 87076; 87086; 87186; 96374; 96376; 99285; J2060; 80320; G0480; Q0162